=== PATIENT | female | born 1980 | race Caucasian/White ===

== ENCOUNTER 2017-01-23 16:47 | Inpatient (IN) | payer OTHER ==
[~2017-01-23] VITALS: Ht 162.6 cm; Wt 70.0 kg
[2017-01-23] VITALS (9 sets, daily range): BP systolic 101–127; BP diastolic 57–67; PULSE 88–119; TEMP 37.1–37.3; O2SAT 97–100; Ht 162.6 cm; Wt 70.0 kg
[2017-01-23] MEDS ORDERED: LORAZEPAM 2 MG/ML 1 ML VIAL IV STA ×2 (17:14→17:28)
[2017-01-23] MEDS ORDERED: SODIUM CHLORIDE 0.9% 1000ML 2,000 ML IV STA (17:14)
[2017-01-23] MEDS ORDERED: ACYCLOVIR SOD IV STA (17:41)
[2017-01-23] MEDS ORDERED: DEXTROSE 5% IV STA (17:41)
[2017-01-23] MEDS ORDERED: CEFTRIAXONE SOD INJ 2,000 MG in DEXTROSE 5% 50ML 50 ML IV STA (17:41)
[2017-01-23] MEDS ORDERED: DEXAMETHASONE SOD INJ 10 MG/ML VIAL IV ONE (17:45)
[2017-01-23] MEDS ORDERED: CEFTRIAXONE SOD INJ 1 GM ADDVIAL ONE (17:50)
[2017-01-23 17:59] LABS: MEAN CELL VOLUME 85.9 fL (80-100); MEAN CORPUSCULAR HEMOGLOBIN 29.9 pg (25-34); MEAN CORPUSCULAR HGB CONC 34.8 g/dl (32-36); MEAN PLATELET VOLUME 10.4 fL (7.4-10.4); PLATELET COUNT 292 K/uL (130-400); RED BLOOD COUNT 3.84 M/uL (4.2-5.4); WHITE BLOOD COUNT 35.02 K/uL (4.8-10.8)
--- NOTE | 2017-01-23 18:13 | DIAGNOSTIC IMAGING REPORT ---
HEAD CT NONCONTRAST CT DOSE: HISTORY: Mental status change OVERDOSE TECHNIQUE: Multiaxial CT images of the head were performed without the use of intravenous contrast. Comparison: None. Findings: Moderate mucosal thickening of the bulk of the right maxillary ethmoid and sphenoid sinuses The calvarium and skull base are intact. The ventricles and sulci are within normal limits. There is no mass, hematoma, midline shift, or acute infarct. Impression: No acute intracranial abnormality. Sinusitis Electronically signed by: Henry Emanuel M.D. 01/23/2017 6:11 PM Dictated Date/Time: 01/23/2017 6:09 PM
--- NOTE | 2017-01-23 18:14 | DIAGNOSTIC IMAGING REPORT ---
ABDOMEN AND PELVIS CT WITHOUT CONTRAST CT DOSE: 968.08 mGy.cm HISTORY: Fever. Mental status change. fever, altered mental status TECHNIQUE: Multiaxial CT images of the abdomen and pelvis were performed without contrast. COMPARISON STUDY: None. FINDINGS: The lung bases are clear. The unenhanced liver, spleen, gallbladder, pancreas, kidneys, and adrenal glands are within normal limits. No bowel wall thickening or obstruction. The pelvic organs are unremarkable. No suspicious lytic or blastic osseous lesions. IMPRESSION: No significant abnormality identified within the abdomen or pelvis. Electronically signed by: Henry Emanuel M.D. 01/23/2017 6:13 PM Dictated Date/Time: 01/23/2017 6:12 PM
[2017-01-23 18:17] LABS: URINE APPEARANCE CLOUDY (CLEAR); URINE COLOR DK YELLOW; URINE EPITHELIAL CELL AUTO >30 /lpf (0-5); URINE NITRITE NEG (NEG); URINE PH 5.5 (4.5-7.5); URINE SPECIFIC GRAVITY 1.032 (1.000-1.030); UROBILINOGEN NEG (NEG)
[2017-01-23 18:20] LABS: BASO % 0.1 %; BASO ABS # 0.02 K/uL (0-0.2); COMPLETE YES; IG% 0.5 %; LYMPH % 5.1 %; MONO % 6.7 %; NEUT % 87.6 %
[2017-01-23] MEDS: ACYCLOVIR SOD INJ 600 MG in DEXTROSE 5% 100ML 100 ML IV STA ×2 (18:20→19:48)
[2017-01-23 18:22] LABS: MANUAL MICROSCOPIC REQUIRED? NO; REVIEW REQ? YES
[2017-01-23 18:24] LABS: URINE BILIRUBIN NEG (NEG)
[2017-01-23] MEDS: KETOROLAC TROMETHAMINE 30 MG/ML VIAL IV STA ×2 (18:30→19:50)
[2017-01-23] MEDS: SODIUM CHLORIDE 0.9% 1000ML 1,000 ML IV STA ×4 (18:45→19:53)
[2017-01-23] MEDS ORDERED: LIDOCAINE HCL 1% 20 ML VIAL ONE (18:53)
[2017-01-23] MEDS ORDERED: DOPamine 400MG / 250ML D5W ONE (19:09)
[2017-01-23] MEDS: VANCOMYCIN INJ 1,500 MG in SODIUM CHLORIDE 0.9% 500ML 500 ML IV STA ×2 (19:25→19:48)
[2017-01-23] MEDS ORDERED: AMPICILLIN IV 2,000 MG in SODIUM CHLOR 0.9% AD-VAN 100ML 100 ML IV STA (19:43)
[2017-01-23 19:59] LABS: INR 1.1 (0.9-1.1); PARTIAL THROMBOPLASTIN RATIO 1.2; PROTHROMBIN TIME (PATIENT) 12.1 SECONDS (9.0-12.0)
[2017-01-23] MEDS ORDERED: MoRPHine SULFATE 2 MG/ML CARP IV PRN (20:00)
[2017-01-23] MEDS ORDERED: ACETAMINOPHEN 325 MG TAB PO PRN (20:00)
[2017-01-23] MEDS ORDERED: ONDANSETRON INJ 2 MG/ML 2 ML VIAL IV PRN (20:00)
[2017-01-23] MEDS ORDERED: HYDROmorphone INJ 1 MG/ML SYR IV PRN (20:00)
[2017-01-23 20:04] LABS: CSF APPEARANCE HAZY; CSF COLOR RED; CSF MONONUC RELAT 13.2 %
[2017-01-23 20:05] LABS: CSF XANTHOCHROMIC NO XANTHOCHROMIA
[2017-01-23 20:07] LABS: CALCIUM 6.8 mg/dl (8.5-10.1); CREATININE 1.1 mg/dl (0.60-1.20); MAGNESIUM 2.3 mg/dl (1.8-2.4)
[2017-01-23] MEDS ORDERED: ACETAMINOPHEN 650 MG SUPP PR ONE (20:11)
[2017-01-23 20:13] LABS: CSF CHEMISTRY TUBE # 2
[2017-01-23 20:17] LABS: PREG INTERNAL NEGATIVE QC NEG CLEAR BACKGROUND; PREG INTERNAL POSITIVE QC POS CONTROL LINE
--- NOTE | 2017-01-23 20:23 | History and Physical ---
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 The pt had been having headaches and sinus congestion for a week. She may have received a course of antibiotics although this is unclear. She had not been seen or heard from for 2 days and had missed work for the past 2 days without notifying anyone. At that point her supplemental manager alerted family who requested that the landlord enter her appt and check on her. She was found obtunded. She was transported emergently to the hospital where a clinical exam was consistent with meningitis and encephalitis. Spinal fluid was aspirated to confirm the diagnosis and initial results are consistent with bacterial meningitis. The pt does not respond to questioning presently and is unable to contribute any information. She hails from [facility] however per her friend she has not travelled since [place]. 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 Smoking Status: Never Smoker Alcohol Use: socially Allergies Coded Allergies: Penicillin V (Verified Adverse Reaction, Intermediate, VOMITTING, 01/23/17) Home Medications Unable to Obtain Active Prescriptions or Reported Meds Review of Systems Cannot obtain Physical Exam Vital Signs Date Time Temp Pulse Resp B/P Pulse Ox O2 Delivery O2 Flow Rate FiO2 01/23/17 19:02 116 01/23/17 18:47 119 21 87 01/23/17 18:46 81/64 01/23/17 18:42 119 18 90 01/23/17 18:37 117 35 89 01/23/17 18:32 123 12 117/66 91 01/23/17 18:27 122 23 91 01/23/17 18:26 173/43 01/23/17 18:22 133 24 94 01/23/17 18:17 132 30 95 01/23/17 18:12 131 42 119/ 94 01/23/17 17:46 116/74 01/23/17 17:42 134 38 96 01/23/17 17:37 136 38 96 01/23/17 17:36 97 Room Air 01/23/17 17:36 97 Room Air 01/23/17 17:34 124/75 01/23/17 17:32 139 26 96 01/23/17 17:27 140 38 97 01/23/17 17:22 129 23 96 01/23/17 17:17 126 25 01/23/17 17:12 121 30 01/23/17 16:56 38.9 118 24 120/73 95 Room Air 01/23/17 16:54 120/73 General Appearance: + pertinent finding (Pts eyes are open - she grimaces with head movement and does not respond to questioning) Head: normocephalic, atraumatic Eyes: normal inspection, + pertinent finding (photohpobia is present) ENT: normal ENT inspection, pharynx normal, + pertinent finding (Crusting on lips - possible scab on R lower lip) Neck: + pertinent finding (Rigidity present) Respiratory/Chest: chest non-tender, lungs clear, normal breath sounds Cardiovascular: regular rate, rhythm, no edema, no gallop, no JVD, no murmur, normal peripheral pulses Abdomen/GI: normal bowel sounds, non tender, soft Back: normal inspection Extremities/Musculoskelatal: normal inspection, no calf tenderness, normal capillary refill, no pedal edema, normal range of motion Neurologic/Psych: + pertinent finding (Cannot comply with exam - awake but unresponsive - exhibits spontaneous movemrnt and turns eyes from light) Skin: + pertinent finding (Erythema over trunk) Diagnostics Laboratory Results Results Past 24 Hours Test 01/23/17 17:25 01/23/17 17:30 01/23/17 19:10 01/23/17 19:32 Range/Units White Blood Count 35.02 4.8-10.8 K/uL Red Blood Count 3.84 4.2-5.4 M/uL Hemoglobin 11.5 12.0-16.0 g/dL Hematocrit 33.0 37-47 % Mean Corpuscular Volume 85.9 80-100 fL Mean Corpuscular Hemoglobin 29.9 25-34 pg Mean Corpuscular Hemoglobin Concent 34.8 32-36 g/dl Platelet Count 292 130-400 K/uL Mean Platelet Volume 10.4 7.4-10.4 fL Neutrophils (%) (Auto) 87.6 % Lymphocytes (%) (Auto) 5.1 % Monocytes (%) (Auto) 6.7 % Eosinophils (%) (Auto) 0.0 % Basophils (%) (Auto) 0.1 % Neutrophils # (Auto) 30.66 1.4-6.5 K/uL Lymphocytes # (Auto) 1.80 1.2-3.4 K/uL Monocytes # (Auto) 2.35 0.11-0.59 K/uL Eosinophils # (Auto) 0.00 0-0.5 K/uL Basophils # (Auto) 0.02 0-0.2 K/uL RDW Standard Deviation 40.8 36.4-46.3 fL RDW Coefficient of Variation 12.9 11.5-14.5 % Immature Granulocyte % (Auto) 0.5 % Immature Granulocyte # (Auto) 0.19 0.00-0.02 K/uL Red Blood Cell Morphology Unremarkable Urine Color DK YELLOW Urine Appearance CLOUDY CLEAR Urine pH 5.5 4.5-7.5 Urine Specific [place] 1.032 1.000-1.030 Urine Protein 3+ NEG Urine Glucose (UA) TRACE NEG Urine Ketones 1+ NEG Urine Occult Blood TRACE NEG Urine Nitrite NEG NEG Urine Bilirubin NEG NEG Urine Urobilinogen NEG NEG Urine Leukocyte Esterase NEG NEG Urine WBC (Auto) 1-5 0-5 /hpf Urine RBC (Auto) 0-4 0-4 /hpf Urine Hyaline Casts (Auto) 1-5 0-5 /lpf Urine Epithelial Cells (Auto) >30 0-5 /lpf Urine Bacteria (Auto) NEG NEG Urine Renal Epithelial Cells 0-5 /lpf Urine Pathogenic Casts See comments 0 /lpf CSF Color RED CSF Appearance HAZY CSF WBC 4081 0-5 /uL CSF RBC 8000 0 /uL CSF Xanthrochromic NO XANTHOCHROMIA CSF Cell Count Tube # 4 CSF Mononuclear WBCs % 13.2 % CSF Polynuclear WBCs (%) 86.8 % CSF Chemistry Tube # 2 CSF Glucose 2 40-70 mg/dl Prothrombin Time 12.1 9.0-12.0 SECONDS Prothromb Time International Ratio 1.1 0.9-1.1 Activated Partial Thromboplast Time 31.6 21.0-31.0 SECONDS Partial Thromboplastin Ratio 1.2 Sodium Level 149 136-145 mmol/L Potassium Level 3.0 3.5-5.1 mmol/L Chloride Level 119 98-107 mmol/L Carbon Dioxide Level 18 21-32 mmol/L Anion Gap 12.0 3-11 mmol/L Blood Urea Nitrogen 33 7-18 mg/dl Creatinine 1.10 0.60-1.20 mg/dl Est Creatinine Clear Calc Drug Dose 67.7 ml/min Estimated GFR () 75.3 Estimated GFR (Non- 65.0 BUN/Creatinine Ratio 30.0 10-20 Random Glucose 132 70-99 mg/dl Osmolality 298 280-300 mOsm/kg Calcium Level 6.8 8.5-10.1 mg/dl Magnesium Level 2.3 1.8-2.4 mg/dl Total Bilirubin 0.4 0.2-1 mg/dl Direct Bilirubin 0.1 0-0.2 mg/dl Aspartate Amino Transf (AST/SGOT) 7 15-37 U/L Alanine Aminotransferase (ALT/SGPT) 8 12-78 U/L Alkaline Phosphatase 46 45-117 U/L Total Creatine Kinase 236 26-192 U/L Troponin I 0.030 0-0.045 ng/ml Total Protein 6.0 6.4-8.2 gm/dl Albumin 2.3 3.4-5.0 gm/dl Lipase 50 73-393 U/L Salicylates Level 4.0 2.8-20 mg/dl Acetaminophen Level 4 10-30 ug/ml Ethyl Alcohol mg/dL < 3.0 0-3 mg/dl Test 01/23/17 19:39 Range/Units Bedside Lactic Acid Venous 0.71 0.90-1.70 mmol/L Microbiology Results 01/23/17 Blood Culture, Received Pending 01/23/17 Blood Culture, Received Pending 01/23/17 Gram Stain - Final, Resulted 01/23/17 CSF Culture, Resulted Pending Impression Assessment and Plan 37 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 The pt had been having headaches and sinus congestion for a week. She may have received a course of antibiotics although this is unclear. She had not been seen or heard from for 2 days and had missed work for the past 2 days without notifying anyone. At that point her supplemental manager alerted family who requested that the landlord enter her appt and check on her. She was found obtunded. She was transported emergently to the hospital where a clinical exam was consistent with meningitis and encephalitis. Spinal fluid was aspirated to confirm the diagnosis and initial results are consistent with bacterial meningitis. The pt does not respond to questioning presently and is unable to contribute any information. She hails from [facility] however per her friend she has not travelled since [place]. Pending culture results, she will be treated empirically to cover both bacterial and herpetic meningitis. She is receiving Vancomycin, Ceftriaxone, Ampicillin and Acyclovir. She will be aggressively hydrated and transferred to the ICU. There is some question if close friends or work contacts may need prophylaxis which we will attempt to verify. Package Line Relief Operator present at time of admission. Family are informed regarding her condition and are expected in the hospital within the next few hours. Full code - SCDs for next 24 hours owing to tap Total time for this admission including discussion with pt's friend, review of labs, meds - discussion with ER attending and book publisher and critical care time 48 min Level of Care Critical Care Resuscitation Status FULL RESUSCITATION VTE Prophylaxis VTE Risk Assessment Done? Y/N: Yes Risk Level: Low Given or contraindicated: SCD's
[2017-01-23 20:25] LABS: CSF TOTAL PROTEIN 741.8 mg/dl (15.0-45.0)
--- NOTE | 2017-01-23 20:28 | Critical Care Consultation ---
Critical Care Consultation Date of Consultation: January 23, 2017. Attending Physician: Dr. Cortez Marcos Reason for Consultation: Altered mental status secondary to suspected bacterial meningitis History of Present Illness Supervising physician: Dr. Elier Ovalle Tracy Salcido, AKBishnu Hensley, is a 37-year-old female who presents to the ICU status post being found altered at her apartment this afternoon. We have very limited information about patient's past medical history. It is our understanding that she has been suffering from a sinus infection; however, it appears that this was not being treated by a medical professional. Family states she went to the doctor during this period; but believes it was for a refill on current medications. It is unclear if antibiotics were prescribed. Patient was last known well Friday prior to 11 AM when her same-sex partner left for an out-of-town trip. At this time the partner states that the patient was sleeping a lot, which she does on occasion, and was feeling under the weather from the sinus infection. 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 When the patient failed to show up to a data collection appointment with coworkers today; her coworkers contacted patient's girlfriend; who in turn contacted the patient's landlord to check on her. I was told that she was found with multiple pill bottles and pills laying around her. Suspicion of OB was considered and with a high fever she was treated as a possible serotonin syndrome; by receiving multiple doses of IV Ativan. Upon further evaluation in the emergency department, meningitis versus encephalitis was in the differential. Patient was noted to have neck stiffness, blotchy appearance to the skin, and fever. Therefore a lumbar puncture was performed and results were consistent with bacterial meningitis; elevated white blood cell count and low glucose. An i-STAT in the ED demonstrated mild anemia and dehydration. While in the emergency department the patient received 4 L of normal saline, Decadron 10 mg, Rocephin 2 g, vancomycin 1500 mg, acyclovir 600 mg. Patient was placed on dopamine for mild hypotension. Dr. Ovalle and myself have had extensive conversation with both the patient's partner and the patient's mother and neither have been able to give much additional information into the patient's past medical history. The mother does state that when she had last spoken to her daughter on Bharat evening on the phone, her daughter stated she was deaf in one ear from the sinus infection. Mother states that ear problems have never been an issue for her daughter. Otherwise the only past medical history that we have been able to ascertain is that the patient has a adverse reaction with the GI upset to penicillin. Patient was obtunded in the emergency department when examined; however, upon seeing her again in the ICU she did follow some simple commands. She was able to tell me her name as well as wiggle her toes. However she could not squeeze my hands or stick out her tongue. Due to current condition described above review of systems could not be obtained. Past Medical/Surgical History Medical Problems: Altered mental status Sinus infection Depression Childhood history of speech impediment Surgical Problems: Tonsillectomy Family History Unable to obtain from patient; per Sister * Denies family history of seizure, CAD, HTN, DM, Thyroid Disorders * Father: M.S. 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[email or web address]) Allergies Coded Allergies: Penicillin V (Verified Adverse Reaction, Intermediate, VOMITTING, 01/23/17) Home Medications Unable to Obtain Active Prescriptions or Reported Meds Current Inpatient Medications Current Inpatient Medications Medications (Trade) Dose Ordered Sig/Barney Route Start Time Stop Time Status Last Admin Dose Admin Sodium Chloride 1,000 ml @ 200 mls/hr Q5H STAT IV 01/23/17 17:14 01/23/17 22:13 01/23/17 19:20 200 MLS/HR Sodium Chloride (Nss 1000ml) 1,000 ml @ 999 mls/hr Q1H1M STAT IV 01/23/17 19:41 01/23/17 20:41 01/23/17 18:45 999 MLS/HR Acetaminophen (Tylenol Tab) 650 mg Q4H PRN PO 01/23/17 20:00 02/22/17 19:59 Ondansetron HCl 4 mg 4 mg Q6H PRN IV 01/23/17 20:00 02/22/17 19:59 Pantoprazole Sodium/Syringe (Protonix Inj/ Syringe) 10 ml @ 5 mls/min DAILY IV 01/24/17 09:00 02/23/17 08:59 UNV Morphine Sulfate (MoRPHine SULFATE INJ) 2 mg Q2H PRN IV 01/23/17 20:00 02/06/17 19:59 Hydromorphone HCl (Dilaudid Inj) 0.5 mg Q4H PRN IV 01/23/17 20:00 02/06/17 19:59 Morphine Sulfate 4 mg 4 mg Q2H PRN IV 01/23/17 20:00 02/06/17 19:59 Ceftriaxone Sodium 2000 mg/ Dextrose 70 ml @ 100 mls/hr Q24H IV 01/23/17 20:00 02/02/17 19:59 UNV Vancomycin HCl 1000 mg/Sodium Chloride 270 ml @ 125 mls/hr Q12 IV 01/23/17 21:00 02/02/17 20:59 UNV Ampicillin Sodium 2000 mg/Sodium Chloride 58 ml @ 100 mls/hr Q6H IV 01/23/17 20:00 02/02/17 19:59 UNV Dexamethasone Sodium Phosphate/ Syringe (Decadron Inj/ Syringe) 3 ml @ 1 mls/min Q6H IV 01/23/17 20:00 02/22/17 19:59 UNV Review of Systems Unable to attain secondary to patient condition as described in history of present illness above Physical Exam Date Time Temp Pulse Resp B/P Pulse Ox O2 Delivery O2 Flow Rate FiO2 01/23/17 20:01 107/48 01/23/17 20:00 126 26 100 01/23/17 19:59 112/48 01/23/17 19:46 95/42 01/23/17 19:45 125 32 100 01/23/17 19:31 96/50 01/23/17 19:30 123 31 100 01/23/17 19:26 104/41 01/23/17 19:16 79/46 01/23/17 19:15 115 17 93 01/23/17 19:08 80/48 01/23/17 19:06 74/48 01/23/17 19:02 116 01/23/17 19:01 81/53 01/23/17 19:00 120 25 92 01/23/17 18:47 119 21 87 01/23/17 18:46 81/64 01/23/17 18:46 81/64 01/23/17 18:45 118 27 91 01/23/17 18:42 119 18 90 01/23/17 18:37 117 35 89 01/23/17 18:32 123 12 117/66 91 01/23/17 18:32 117/66 01/23/17 18:30 123 34 94 01/23/17 18:27 122 23 91 01/23/17 18:26 173/43 01/23/17 18:26 173/43 01/23/17 18:22 133 24 94 01/23/17 18:17 132 30 95 01/23/17 18:15 129 36 94 01/23/17 18:12 131 42 119/ 94 01/23/17 18:12 119/ 01/23/17 17:46 116/74 01/23/17 17:46 116/74 01/23/17 17:45 129 42 94 01/23/17 17:42 134 38 96 01/23/17 17:37 136 38 96 01/23/17 17:36 97 Room Air 01/23/17 17:36 97 Room Air 01/23/17 17:34 124/75 01/23/17 17:32 139 26 96 01/23/17 17:27 140 38 97 01/23/17 17:22 129 23 96 01/23/17 17:17 126 25 01/23/17 17:12 121 30 01/23/17 16:56 38.9 118 24 120/73 95 Room Air 01/23/17 16:54 120/73 Vital Signs - as noted Laboratory Data - as noted Physical Exam: General - NAD, Obtunded Eyes - PERRL thought sluggish, EOM could not be assessed, No icterus, gaze conjugate ENT - Mucosa dry, no lesions or candidiasis, hematoma to right lower lip Neck - Supple, trachea midline, no masses or lymphadenopathy, no JVD or bruits Lungs - No paradoxical chest wall movement, clear to auscultation bilaterally, some coarseness to right lower lobe, no wheezes, rales, or rhonchi Heart -normal rhythm with sinus tachycardia, No murmur, rubs, clicks, or gallops appreciated Abdomen - BS present, no bruits noted, tympanic to percussion, soft, nontender, nondistended, no organomegaly Extremities - No edema, pedal pulses intact Neuro - [place] Coma Scale: 10 Strength moves all extremities Reflexes: normal and equal CN:PERRL, no facial asymmetry, uvula/tongue midline Laboratory Results Last 24 Hours Test 01/23/17 17:25 01/23/17 17:30 01/23/17 19:10 01/23/17 19:32 White Blood Count 35.02 K/uL Red Blood Count 3.84 M/uL Hemoglobin 11.5 g/dL Hematocrit 33.0 % Mean Corpuscular Volume 85.9 fL Mean Corpuscular Hemoglobin 29.9 pg Mean Corpuscular Hemoglobin Concent 34.8 g/dl Platelet Count 292 K/uL Mean Platelet Volume 10.4 fL Neutrophils (%) (Auto) 87.6 % Lymphocytes (%) (Auto) 5.1 % Monocytes (%) (Auto) 6.7 % Eosinophils (%) (Auto) 0.0 % Basophils (%) (Auto) 0.1 % Neutrophils # (Auto) 30.66 K/uL Lymphocytes # (Auto) 1.80 K/uL Monocytes # (Auto) 2.35 K/uL Eosinophils # (Auto) 0.00 K/uL Basophils # (Auto) 0.02 K/uL RDW Standard Deviation 40.8 fL RDW Coefficient of Variation 12.9 % Immature Granulocyte % (Auto) 0.5 % Immature Granulocyte # (Auto) 0.19 K/uL Red Blood Cell Morphology Unremarkable Urine Color DK YELLOW Urine Appearance CLOUDY Urine pH 5.5 Urine Specific [place] 1.032 Urine Protein 3+ Urine Glucose (UA) TRACE Urine Ketones 1+ Urine Occult Blood TRACE Urine Nitrite NEG Urine Bilirubin NEG Urine Urobilinogen NEG Urine Leukocyte Esterase NEG Urine WBC (Auto) 1-5 /hpf Urine RBC (Auto) 0-4 /hpf Urine Hyaline Casts (Auto) 1-5 /lpf Urine Epithelial Cells (Auto) >30 /lpf Urine Bacteria (Auto) NEG Urine Renal Epithelial Cells /lpf Urine Pathogenic Casts See comments /lpf CSF Color RED CSF Appearance HAZY CSF WBC 4081 /uL CSF RBC 8000 /uL CSF Xanthrochromic NO XANTHOCHROMIA CSF Cell Count Tube # 4 CSF Mononuclear WBCs % 13.2 % CSF Polynuclear WBCs (%) 86.8 % CSF Chemistry Tube # 2 CSF Glucose 2 mg/dl CSF Total Protein 741.8 mg/dl Prothrombin Time 12.1 SECONDS Prothromb Time International Ratio 1.1 Activated Partial Thromboplast Time 31.6 SECONDS Partial Thromboplastin Ratio 1.2 Sodium Level 149 mmol/L Potassium Level 3.0 mmol/L Chloride Level 119 mmol/L Carbon Dioxide Level 18 mmol/L Anion Gap 12.0 mmol/L Blood Urea Nitrogen 33 mg/dl Creatinine 1.10 mg/dl Est Creatinine Clear Calc Drug Dose 67.7 ml/min Estimated GFR () 75.3 Estimated GFR (Non- 65.0 BUN/Creatinine Ratio 30.0 Random Glucose 132 mg/dl Osmolality 298 mOsm/kg Calcium Level 6.8 mg/dl Magnesium Level 2.3 mg/dl Total Bilirubin 0.4 mg/dl Direct Bilirubin 0.1 mg/dl Aspartate Amino Transf (AST/SGOT) 7 U/L Alanine Aminotransferase (ALT/SGPT) 8 U/L Alkaline Phosphatase 46 U/L Total Creatine Kinase 236 U/L Troponin I 0.030 ng/ml Total Protein 6.0 gm/dl Albumin 2.3 gm/dl Lipase 50 U/L Human Chorionic Gonadotropin, Qual NEG Salicylates Level 4.0 mg/dl Acetaminophen Level 4 ug/ml Ethyl Alcohol mg/dL < 3.0 mg/dl Test 01/23/17 19:39 Bedside Lactic Acid Venous 0.71 mmol/L Diagnostic Results HEAD CT NONCONTRAST CT DOSE: HISTORY: Mental status change OVERDOSE TECHNIQUE: Multiaxial CT images of the head were performed without the use of intravenous contrast. Comparison: None. Findings: Moderate mucosal thickening of the bulk of the right maxillary ethmoid and sphenoid sinuses The calvarium and skull base are intact. The ventricles and sulci are within normal limits. There is no mass, hematoma, midline shift, or acute infarct. Impression: No acute intracranial abnormality. Sinusitis Electronically signed by: Henry Emanuel M.D. 01/23/2017 6:11 PM Dictated Date/Time: 01/23/2017 6:09 PM _ CHEST ONE VIEW PORTABLE CLINICAL HISTORY: Overdose dyspnea COMPARISON STUDY: No previous studies for comparison. FINDINGS: Interstitial prominence of the mid to lower lung regions bilaterally. No consolidative infiltrates. No evidence for cardiac enlargement. IMPRESSION: Nonspecific interstitial prominence in both lung bases. Possibly of a nonspecific pneumonitis is considered Electronically signed by: Henry Emanuel M.D. 01/23/2017 8:35 PM Dictated Date/Time: 01/23/2017 8:34 PM __ ABDOMEN AND PELVIS CT WITHOUT CONTRAST CT DOSE: 968.08 mGy.cm HISTORY: Fever. Mental status change. fever, altered mental status TECHNIQUE: Multiaxial CT images of the abdomen and pelvis were performed without contrast. COMPARISON STUDY: None. FINDINGS: The lung bases are clear. The unenhanced liver, spleen, gallbladder, pancreas, kidneys, and adrenal glands are within normal limits. No bowel wall thickening or obstruction. The pelvic organs are unremarkable. No suspicious lytic or blastic osseous lesions. IMPRESSION: No significant abnormality identified within the abdomen or pelvis. Electronically signed by: Henry Emanuel M.D. 01/23/2017 6:13 PM Dictated Date/Time: 01/23/2017 6:12 PM Assessment & Plan Reason Critically Ill: Patient is an 37-year-old obtunded female who is transferred to the ICU for suspected bacterial meningitis causing altered mental status. PLAN: Neuro: * Pt is obtunded but is showing some improvement as noted in HPI * Drug screen Negative * Pain with movement of head; neck stiffness * Lyme Neg * Lumbar puncture performed in emergency department * CSF WBCs 4081, glucose 2, total protein 741.8 * Traumatic tap noted by provider and results * CSF Gram Stain Neg, Culture Pending * Currently being treated for suspicion of bacterial meningitis secondary to acute sinusitis * Continue current broad spectrum antibiotics as well as acyclovir (first day of treatment 01/23/2017) * Ampicillin (adverse reaction to penicillin notated as GI upset) 2 g every 6 hours IV * Ceftriaxone 2 g every 12 hours IV * Vancomycin 1250 mg every 10 hours IV * Acyclovir 500 mg every 8 hours IV * Continue dexamethasone 12 mg every 6 hours IV; currently timed to be given with ampicillin * HIV test pending: If positive will add fungal coverage ID: * White blood cell count elevated: 35.02 * Fever noted in ED; rcv'd Tylenol Supp * Fever resolved since ICU admission * Continue broad-spectrum antibiotics as noted above in neuro * Lactic acid obtained in emergency department less than 1; however this was after 3 L of fluid. * Repeat lactic acid with morning labs * Blood and CSF Cultures Pending * Monitor CBC, Trend Fever Curve Resp: * Supplemental oxygen as required * Patient currently clear to auscultation; 3 L nasal cannula with adequate saturations * Monitor on telemetry * At increased risk for aspiration secondary to altered mental status; keep head of bed at 30 * Consented to Endotracheal Intubation if needed CV: * Tachycardic on admission to ICU; now resolved * Hypotension: Discontinue dopamine; monitor SBP * Goal greater than 90 * Have obtained consent for arterial and central line via phone from patient's mother with Dr. Ovalle * Will hold on invasive procedures currently as patient has stabilized * Monitor on telemetry Fluids/Renal/electrolytes: * Adequate urinary output; Sosa in place to gravity * Patient has received a minimum of 4 L normal saline * Monitor daily BMP * Hypokalemia noted in the emergency department: * Continue to replete electrolytes per protocol * Continue IV fluids D5NSS + 20KCl @150mL/hr * Will need to monitor glucose closely due to D5 above and steroid use GI/Nutrition: * Monitor for BM * NPO while altered * No elevation in Liver Enzymes; Repeat lab in AM * Stress Ulcer Prophylaxis in place Heme: * Monitor H&H Daily; expect dilutional anemia secondary to IV fluid intake * Plts WNL * Pt consented for blood products if needed * DVT Prophylaxis: * No chemical prophylaxis today, secondary to LP * SCDs in place Endocrine: * Accu-Checks per protocol, started insulin infusion for 2 blood sugars greater than 180 * No known DM dx: check A1C in AM Access: [address], Consent obtained for Central and Arterial Line if condition requires CCT: 60 Minutes; This time is exclusive of all separately billable procedures. Thank you for involving us in the care of this patient. Please refer to Dr. Elier Ovalle's addendum for further recommendations. I have personally evaluated and examined this patient. I agree with assessment and plan of Keila Monteiro PA-C. Had significant discussion with patient's mother, and life partner. Patient critically ill due to likely bacterial meningitis secondary to sinusitis, no evidence of bony erosion seen on the CT scan. Started broad-spectrum antibiotics will de-escalate based on CSF fluid results.
--- NOTE | 2017-01-23 20:36 | DIAGNOSTIC IMAGING REPORT ---
CHEST ONE VIEW PORTABLE CLINICAL HISTORY: Overdose dyspnea COMPARISON STUDY: No previous studies for comparison. FINDINGS: Interstitial prominence of the mid to lower lung regions bilaterally. No consolidative infiltrates. No evidence for cardiac enlargement. IMPRESSION: Nonspecific interstitial prominence in both lung bases. Possibly of a nonspecific pneumonitis is considered Electronically signed by: Henry Emanuel M.D. 01/23/2017 8:35 PM Dictated Date/Time: 01/23/2017 8:34 PM
[2017-01-23 20:37] LABS: LYME DISEASE AB IGG NEG (NEG); LYME DISEASE AB IGM NEG (NEG)
[2017-01-23] MEDS ORDERED: VANCOMYCIN CONSULT ACTIVE PRN (21:45)
--- NOTE | 2017-01-23 21:47 | Pharmacy Progress Note ---
Pharmacy Abx Initial Consult Date of Service January 23, 2017. Pharmacy Dosing Scope Date of Consult: 01/23/17 Consultation requested by: Dr. Marcos Pharmacy is consulted to initiate vanco IV/PO dosing therapy, order appropriate labs and adjust drug dose/frequency. Subjective The patient is a 37 year old female admitted on January 23, 2017 at 19:51. Objective Height (Feet): 5 Height (Inches): 3.00 Weight (Kilograms): 71.600 Vital Signs (Past 12Hrs) Vital Signs Past 12 Hours Date Time Temp Pulse Resp B/P Pulse Ox O2 Delivery O2 Flow Rate FiO2 01/23/17 20:36 113 27 95 01/23/17 20:31 113/69 01/23/17 20:22 106/63 01/23/17 20:21 119 27 94 01/23/17 20:20 38.1 01/23/17 20:16 113/54 01/23/17 20:06 115 28 100 01/23/17 20:01 107/48 01/23/17 20:00 126 26 100 01/23/17 19:59 112/48 01/23/17 19:46 95/42 01/23/17 19:45 125 32 100 01/23/17 19:31 96/50 01/23/17 19:30 123 31 100 01/23/17 19:26 104/41 01/23/17 19:16 79/46 01/23/17 19:15 115 17 93 01/23/17 19:08 80/48 01/23/17 19:06 74/48 01/23/17 19:02 116 01/23/17 19:01 81/53 01/23/17 19:00 120 25 92 01/23/17 18:47 119 21 87 01/23/17 18:46 81/64 01/23/17 18:46 81/64 01/23/17 18:45 118 27 91 01/23/17 18:42 119 18 90 01/23/17 18:37 117 35 89 01/23/17 18:32 123 12 117/66 91 01/23/17 18:32 117/66 01/23/17 18:30 123 34 94 01/23/17 18:27 122 23 91 01/23/17 18:26 173/43 5/25/17 18:26 173/43 01/23/17 18:22 133 24 94 01/23/17 18:17 132 30 95 01/23/17 18:15 129 36 94 01/23/17 18:12 131 42 119/ 94 01/23/17 18:12 119/ 01/23/17 17:46 116/74 01/23/17 17:46 116/74 01/23/17 17:45 129 42 94 01/23/17 17:42 134 38 96 01/23/17 17:37 136 38 96 01/23/17 17:36 97 Room Air 01/23/17 17:36 97 Room Air 01/23/17 17:34 124/75 01/23/17 17:32 139 26 96 01/23/17 17:27 140 38 97 01/23/17 17:22 129 23 96 01/23/17 17:17 126 25 01/23/17 17:12 121 30 01/23/17 16:56 38.9 118 24 120/73 95 Room Air 01/23/17 16:54 120/73 Lab Results (24Hrs) Test 01/23/17 17:25 01/23/17 17:30 01/23/17 19:10 01/23/17 19:32 White Blood Count 35.02 K/uL (4.8-10.8) Red Blood Count 3.84 M/uL (4.2-5.4) Hemoglobin 11.5 g/dL (12.0-16.0) Hematocrit 33.0 % (37-47) Mean Corpuscular Volume 85.9 fL (80-100) Mean Corpuscular Hemoglobin 29.9 pg (25-34) Mean Corpuscular Hemoglobin Concent 34.8 g/dl (32-36) Platelet Count 292 K/uL (130-400) Mean Platelet Volume 10.4 fL (7.4-10.4) Neutrophils (%) (Auto) 87.6 % Lymphocytes (%) (Auto) 5.1 % Monocytes (%) (Auto) 6.7 % Eosinophils (%) (Auto) 0.0 % Basophils (%) (Auto) 0.1 % Neutrophils # (Auto) 30.66 K/uL (1.4-6.5) Lymphocytes # (Auto) 1.80 K/uL (1.2-3.4) Monocytes # (Auto) 2.35 K/uL (0.11-0.59) Eosinophils # (Auto) 0.00 K/uL (0-0.5) Basophils # (Auto) 0.02 K/uL (0-0.2) RDW Standard Deviation 40.8 fL (36.4-46.3) RDW Coefficient of Variation 12.9 % (11.5-14.5) Immature Granulocyte % (Auto) 0.5 % Immature Granulocyte # (Auto) 0.19 K/uL (0.00-0.02) Red Blood Cell Morphology Unremarkable Urine Color DK YELLOW Urine Appearance CLOUDY (CLEAR) Urine pH 5.5 (4.5-7.5) Urine Specific [place] 1.032 (1.000-1.030) Urine Protein 3+ (NEG) Urine Glucose (UA) TRACE (NEG) Urine Ketones 1+ (NEG) Urine Occult Blood TRACE (NEG) Urine Nitrite NEG (NEG) Urine Bilirubin NEG (NEG) Urine Urobilinogen NEG (NEG) Urine Leukocyte Esterase NEG (NEG) Urine WBC (Auto) 1-5 /hpf (0-5) Urine RBC (Auto) 0-4 /hpf (0-4) Urine Hyaline Casts (Auto) 1-5 /lpf (0-5) Urine Epithelial Cells (Auto) >30 /lpf (0-5) Urine Bacteria (Auto) NEG (NEG) Urine Renal Epithelial Cells /lpf (0-5) Urine Pathogenic Casts See comments /lpf (0) CSF Color RED CSF Appearance HAZY CSF WBC 4081 /uL (0-5) CSF RBC 8000 /uL (0) CSF Xanthrochromic NO XANTHOCHROMIA CSF Cell Count Tube # 4 CSF Mononuclear WBCs % 13.2 % CSF Polynuclear WBCs (%) 86.8 % CSF Chemistry Tube # 2 CSF Glucose 2 mg/dl (40-70) CSF Total Protein 741.8 mg/dl (15.0-45.0) Prothrombin Time 12.1 SECONDS (9.0-12.0) Prothromb Time International Ratio 1.1 (0.9-1.1) Activated Partial Thromboplast Time 31.6 SECONDS (21.0-31.0) Partial Thromboplastin Ratio 1.2 Sodium Level 149 mmol/L (136-145) Potassium Level 3.0 mmol/L (3.5-5.1) Chloride Level 119 mmol/L (98-107) Carbon Dioxide Level 18 mmol/L (21-32) Anion Gap 12.0 mmol/L (3-11) Blood Urea Nitrogen 33 mg/dl (7-18) Creatinine 1.10 mg/dl (0.60-1.20) Est Creatinine Clear Calc Drug Dose 67.7 ml/min Estimated GFR () 75.3 Estimated GFR (Non- 65.0 BUN/Creatinine Ratio 30.0 (10-20) Random Glucose 132 mg/dl (70-99) Osmolality 298 mOsm/kg (280-300) Calcium Level 6.8 mg/dl (8.5-10.1) Magnesium Level 2.3 mg/dl (1.8-2.4) Total Bilirubin 0.4 mg/dl (0.2-1) Direct Bilirubin 0.1 mg/dl (0-0.2) Aspartate Amino Transf (AST/SGOT) 7 U/L (15-37) Alanine Aminotransferase (ALT/SGPT) 8 U/L (12-78) Alkaline Phosphatase 46 U/L (45-117) Total Creatine Kinase 236 U/L (26-192) Troponin I 0.030 ng/ml (0-0.045) Total Protein 6.0 gm/dl (6.4-8.2) Albumin 2.3 gm/dl (3.4-5.0) Lipase 50 U/L (73-393) Human Chorionic Gonadotropin, Qual NEG (NEG) Salicylates Level 4.0 mg/dl (2.8-20) Acetaminophen Level 4 ug/ml (10-30) Ethyl Alcohol mg/dL < 3.0 mg/dl (0-3) Lyme Disease IgG Antibody NEG (NEG) Lyme Disease IgM Antibody NEG (NEG) Test 01/23/17 19:39 Bedside Lactic Acid Venous 0.71 mmol/L (0.90-1.70) Serology Item Value Date Time Lyme Disease IgM Antibody NEG 01/23/171931 Lyme Disease IgG Antibody NEG 01/23/171931 Micro Results Date/Time Source Procedure Growth Status 01/23/17 18:15 Blood Blood Culture Pending Received 01/23/17 17:25 Blood Blood Culture Pending Received 01/23/17 19:10 Cerebral Spinal Fluid Gram Stain - Final Resulted 01/23/17 19:10 Cerebral Spinal Fluid CSF Culture Pending Resulted 01/23/17 21:30 Nasal MRSA DNA Surveillance Screen Pending Received Other Body Sources Item Value Date Time CSF Total Protein 741.8 mg/dl H 01/23/171909 CSF Glucose 2 mg/dl L 01/23/171909 CSF Chemistry Tube # 2 01/23/171909 CSF Polynuclear WBCs (%) 86.8 % 01/23/171909 CSF Mononuclear WBCs % 13.2 % 01/23/171909 CSF Cell Count Tube # 4 01/23/171909 CSF RBC 8000 /uL 01/23/171909 CSF WBC 4081 /uL *H 01/23/171909 CSF Xanthrochromic NO XANTHOCHROMIA 01/23/171909 CSF Color RED 01/23/171909 CSF Appearance HAZY 01/23/171909 Assessment & Plan Assessment 37 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 Plan Broad-spectrum anti-infectives for treatment of meningitis Vancomycin IV * Loading dose: 1500 mg (21 mg/kg) given in ED * Maintenance dose: 1250 mg IV (17 mg/kg) every 10 hours * Goal trough level for meningitis : 15 to 20 mcg/mL * Trough level ordered for 01/25/17 prior to the 04:00 dose OTHER anti-infectives (not pharmacy consults): * Rocephin * Ampicillin * Acyclovir Pharmacy will continue to follow and will adjust dose/frequency as necessary. Thank you.
[2017-01-23] MEDS: D5NSS + 20MEQ KCL 1,000 ML IV SCH (22:02)
[2017-01-23] MEDS: POTASSIUM CHLR 10 MEQ / WTR 10 MEQ in PREMIXED WATER 100 ML IV SCH ×4 (22:02→23:30)
--- NOTE | 2017-01-23 22:52 | EMERGENCY ROOM VISIT NOTE ---
History Report prepared by Elena: Mi Parsons Under the Supervision of: Dr. Perez Cisneros M.D. First contact with patient: 17:07 Chief Complaint: OVERDOSE (ACCIDENTAL) Stated Complaint: AMS, FEVER, RASH History of Present Illness The patient is a 37 year old female who presents to the Emergency Room with persistent AMS starting DRAG OUT MAN. The history is given by nursing staff. Someone went to check on her after nobody had seen her for 3 days. They found her in an altered mental status and called EMS. There were pills scattered on the ground around her and did raise concern for possible overdose. They report a blotchy red rash on her upper body and neck stiffness. Her blood glucose was normal. The history is limited due to AMS. Source of History: nursing staff History Limited By: AMS Onset: DRAG OUT MAN Position: other (global) Quality: other (AMS) Timing: other (persistent) Review of Systems Unobtainable due to AMS. Past Medical & Surgical Medical Problems: (1) Altered mental status Current/Historical Medications Unable to Obtain Active Prescriptions or Reported Meds Allergies Coded Allergies: Penicillin V (Verified Adverse Reaction, Intermediate, VOMITTING, 01/23/17) Physical Exam Vital Signs Date Time Temp Pulse Resp B/P Pulse Ox O2 Delivery O2 Flow Rate FiO2 01/23/17 19:46 95/42 01/23/17 19:45 125 32 100 01/23/17 19:31 96/50 01/23/17 19:30 123 31 100 01/23/17 19:26 104/41 01/23/17 19:16 79/46 01/23/17 19:15 115 17 93 01/23/17 19:08 80/48 01/23/17 19:06 74/48 01/23/17 19:02 116 01/23/17 19:01 81/53 01/23/17 19:00 120 25 92 01/23/17 18:47 119 21 87 01/23/17 18:46 81/64 01/23/17 18:46 81/64 01/23/17 18:45 118 27 91 01/23/17 18:42 119 18 90 01/23/17 18:37 117 35 89 01/23/17 18:32 123 12 117/66 91 01/23/17 18:32 117/66 01/23/17 18:30 123 34 94 01/23/17 18:27 122 23 91 01/23/17 18:26 173/43 01/23/17 18:26 173/43 01/23/17 18:22 133 24 94 01/23/17 18:17 132 30 95 01/23/17 18:15 129 36 94 01/23/17 18:12 131 42 119/ 94 01/23/17 18:12 119/ 01/23/17 17:46 116/74 01/23/17 17:46 116/74 01/23/17 17:45 129 42 94 01/23/17 17:42 134 38 96 01/23/17 17:37 136 38 96 01/23/17 17:36 97 Room Air 01/23/17 17:36 97 Room Air 01/23/17 17:34 124/75 01/23/17 17:32 139 26 96 01/23/17 17:27 140 38 97 01/23/17 17:22 129 23 96 01/23/17 17:17 126 25 01/23/17 17:12 121 30 01/23/17 16:56 38.9 118 24 120/73 95 Room Air 01/23/17 16:54 120/73 Physical Exam GENERAL: Awake, altered, responding to some verbal and painful stimuli. HENT: Normocephalic, atraumatic. Oropharynx unremarkable. Dry mucous membranes. EYES: Normal conjunctiva. Sclera non-icteric. Pupils dilated to 7 mm. NECK: Supple. No nuchal rigidity. FROM. No JVD. RESPIRATORY: Clear to auscultation. CARDIAC: Tachycardic rate, normal rhythm. Extremities warm and well perfused. Pulses equal. ABDOMEN: Soft, non-distended. No tenderness to palpation. No rebound or guarding. No masses. RECTAL: Deferred. MUSCULOSKELETAL: Chest examination reveals no tenderness. The back is symmetrical on inspection without obvious abnormality. There is no CVA tenderness to palpation. No joint edema. LOWER EXTREMITIES: Calves are equal size bilaterally and non-tender. No edema. Scattered bruises on the lower extremities. NEURO: Altered sensorium. Not following commands well. SKIN: No rash or jaundice noted. Medical Decision & Procedures ER Provider Diagnostic Interpretation: X-ray: Per my interpretation, radiologist review. Radiology results as stated below per my review and radiologist interpretation: CHEST ONE VIEW PORTABLE CLINICAL HISTORY: Overdose dyspnea COMPARISON STUDY: No previous studies for comparison. FINDINGS: Interstitial prominence of the mid to lower lung regions bilaterally. No consolidative infiltrates. No evidence for cardiac enlargement. IMPRESSION: Nonspecific interstitial prominence in both lung bases. Possibly of a nonspecific pneumonitis is considered Electronically signed by: Henry Emanuel M.D. 01/23/2017 8:35 PM Dictated Date/Time: 01/23/2017 8:34 PM ABDOMEN AND PELVIS CT WITHOUT CONTRAST CT DOSE: 968.08 mGy.cm HISTORY: Fever. Mental status change. fever, altered mental status TECHNIQUE: Multiaxial CT images of the abdomen and pelvis were performed without contrast. COMPARISON STUDY: None. FINDINGS: The lung bases are clear. The unenhanced liver, spleen, gallbladder, pancreas, kidneys, and adrenal glands are within normal limits. No bowel wall thickening or obstruction. The pelvic organs are unremarkable. No suspicious lytic or blastic osseous lesions. IMPRESSION: No significant abnormality identified within the abdomen or pelvis. Electronically signed by: Henry Emanuel M.D. 01/23/2017 6:13 PM Dictated Date/Time: 01/23/2017 6:[address] CT DOSE: HISTORY: Mental status change OVERDOSE TECHNIQUE: Multiaxial CT images of the head were performed without the use of intravenous contrast. Comparison: None. Findings: Moderate mucosal thickening of the bulk of the right maxillary ethmoid and sphenoid sinuses The calvarium and skull base are intact. The ventricles and sulci are within normal limits. There is no mass, hematoma, midline shift, or acute infarct. Impression: No acute intracranial abnormality. Sinusitis Electronically signed by: Henry Emanuel M.D. 01/23/2017 6:11 PM Dictated Date/Time: 01/23/2017 6:09 PM Laboratory Results 01/23/17 17:25 Red Blood Count 3.84, Mean Corpuscular Volume 85.9, Mean Corpuscular Hemoglobin 29.9, Mean Corpuscular Hemoglobin Concent 34.8, Mean Platelet Volume 10.4, Neutrophils (%) (Auto) 87.6, Lymphocytes (%) (Auto) 5.1, Monocytes (%) (Auto) 6.7, Eosinophils (%) (Auto) 0.0, Basophils (%) (Auto) 0.1, Neutrophils # (Auto) 30.66, Lymphocytes # (Auto) 1.80, Monocytes # (Auto) 2.35, Eosinophils # (Auto) 0.00, Basophils # (Auto) 0.02 01/23/17 19:32 Test 01/23/17 00:00 01/23/17 17:25 01/23/17 17:30 01/23/17 19:10 White Blood Count 35.02 K/uL (4.8-10.8) Red Blood Count 3.84 M/uL (4.2-5.4) Hemoglobin 11.5 g/dL (12.0-16.0) Hematocrit 33.0 % (37-47) Mean Corpuscular Volume 85.9 fL (80-100) Mean Corpuscular Hemoglobin 29.9 pg (25-34) Mean Corpuscular Hemoglobin Concent 34.8 g/dl (32-36) Platelet Count 292 K/uL (130-400) Mean Platelet Volume 10.4 fL (7.4-10.4) Neutrophils (%) (Auto) 87.6 % Lymphocytes (%) (Auto) 5.1 % Monocytes (%) (Auto) 6.7 % Eosinophils (%) (Auto) 0.0 % Basophils (%) (Auto) 0.1 % Neutrophils # (Auto) 30.66 K/uL (1.4-6.5) Lymphocytes # (Auto) 1.80 K/uL (1.2-3.4) Monocytes # (Auto) 2.35 K/uL (0.11-0.59) Eosinophils # (Auto) 0.00 K/uL (0-0.5) Basophils # (Auto) 0.02 K/uL (0-0.2) RDW Standard Deviation 40.8 fL (36.4-46.3) RDW Coefficient of Variation 12.9 % (11.5-14.5) Immature Granulocyte % (Auto) 0.5 % Immature Granulocyte # (Auto) 0.19 K/uL (0.00-0.02) Red Blood Cell Morphology Unremarkable Urine Color DK YELLOW Urine Appearance CLOUDY (CLEAR) Urine pH 5.5 (4.5-7.5) Urine Specific [place] 1.032 (1.000-1.030) Urine Protein 3+ (NEG) Urine Glucose (UA) TRACE (NEG) Urine Ketones 1+ (NEG) Urine Occult Blood TRACE (NEG) Urine Nitrite NEG (NEG) Urine Bilirubin NEG (NEG) Urine Urobilinogen NEG (NEG) Urine Leukocyte Esterase NEG (NEG) Urine WBC (Auto) 1-5 /hpf (0-5) Urine RBC (Auto) 0-4 /hpf (0-4) Urine Hyaline Casts (Auto) 1-5 /lpf (0-5) Urine Epithelial Cells (Auto) >30 /lpf (0-5) Urine Bacteria (Auto) NEG (NEG) Urine Renal Epithelial Cells /lpf (0-5) Urine Pathogenic Casts See comments /lpf (0) CSF Color RED CSF Appearance HAZY CSF WBC 4081 /uL (0-5) CSF RBC 8000 /uL (0) CSF Xanthrochromic NO XANTHOCHROMIA CSF Cell Count Tube # 4 CSF Mononuclear WBCs % 13.2 % CSF Polynuclear WBCs (%) 86.8 % CSF Chemistry Tube # 2 CSF Glucose 2 mg/dl (40-70) CSF Total Protein 741.8 mg/dl (15.0-45.0) Test 01/23/17 19:32 01/23/17 19:39 Prothrombin Time 12.1 SECONDS (9.0-12.0) Prothromb Time International Ratio 1.1 (0.9-1.1) Activated Partial Thromboplast Time 31.6 SECONDS (21.0-31.0) Partial Thromboplastin Ratio 1.2 Anion Gap 12.0 mmol/L (3-11) Est Creatinine Clear Calc Drug Dose 67.7 ml/min Estimated GFR () 75.3 Estimated GFR (Non- 65.0 BUN/Creatinine Ratio 30.0 (10-20) Osmolality 298 mOsm/kg (280-300) Calcium Level 6.8 mg/dl (8.5-10.1) Magnesium Level 2.3 mg/dl (1.8-2.4) Total Bilirubin 0.4 mg/dl (0.2-1) Direct Bilirubin 0.1 mg/dl (0-0.2) Aspartate Amino Transf (AST/SGOT) 7 U/L (15-37) Alanine Aminotransferase (ALT/SGPT) 8 U/L (12-78) Alkaline Phosphatase 46 U/L (45-117) Total Creatine Kinase 236 U/L (26-192) Troponin I 0.030 ng/ml (0-0.045) Total Protein 6.0 gm/dl (6.4-8.2) Albumin 2.3 gm/dl (3.4-5.0) Lipase 50 U/L (73-393) Human Chorionic Gonadotropin, Qual NEG (NEG) Salicylates Level 4.0 mg/dl (2.8-20) Acetaminophen Level 4 ug/ml (10-30) Ethyl Alcohol mg/dL < 3.0 mg/dl (0-3) Lyme Disease IgG Antibody NEG (NEG) Lyme Disease IgM Antibody NEG (NEG) Bedside Lactic Acid Venous 0.71 mmol/L (0.90-1.70) Laboratory results reviewed by me Medications Administered Medications (Trade) Dose Ordered Sig/Barney Route Start Time Stop Time Status Last Admin Dose Admin Lorazepam 1 mg 1 mg NOW STAT IV 01/23/17 17:14 01/23/17 17:17 DC 01/23/17 17:14 1 MG Sodium Chloride 2,000 ml @ 999 mls/hr Q2H1M STAT IV 01/23/17 17:14 01/23/17 19:14 DC 01/23/17 17:39 999 MLS/HR Sodium Chloride (Nss 1000ml) 1,000 ml @ 200 mls/hr Q5H STAT IV 01/23/17 17:14 01/23/17 21:25 DC 01/23/17 19:20 200 MLS/HR Lorazepam (Ativan Inj) 1 mg NOW STAT IV 01/23/17 17:28 01/23/17 17:29 DC 01/23/17 17:43 1 MG Dexamethasone Sodium Phosphate 10 mg 10 mg NOW ONCE IV 01/23/17 17:45 01/23/17 17:46 DC 01/23/17 17:45 10 MG Vancomycin HCl/ Sodium Chloride (Vancomycin Inj/ Nss 500ml) 530 ml @ 200 mls/hr ONE STAT IV 01/23/17 17:41 01/23/17 20:19 DC 01/23/17 19:25 200 MLS/HR Ceftriaxone Sodium 2 gm 2 gm STK-MED ONCE .ROUTE 01/23/17 17:50 01/23/17 17:51 DC 01/23/17 17:50 2 GM Acyclovir Sodium/ Dextrose (Zovirax Inj/D5 100ml) 112 ml @ 100 mls/hr NOW STAT IV 01/23/17 17:52 01/23/17 18:59 DC 01/23/17 18:20 100 MLS/HR Ketorolac Tromethamine (Toradol Inj) 30 mg NOW STAT IV 01/23/17 18:25 01/23/17 18:26 DC 01/23/17 18:30 30 MG Dopamine HCl/ Dextrose 400 mg 400 mg STK-MED ONCE .ROUTE 01/23/17 19:09 01/23/17 19:10 DC 01/23/17 19:20 400 MG Sodium Chloride 1,000 ml @ 999 mls/hr Q1H1M STAT IV 01/23/17 19:41 01/23/17 20:41 DC 01/23/17 18:45 999 MLS/HR Ampicillin Sodium/ Sodium Chloride (Ampicillin Iv/ Nss Ad-Van 100ml) 100 ml @ 200 mls/hr NOW STAT IV 01/23/17 19:43 01/23/17 20:12 DC 01/23/17 20:58 200 MLS/HR Procedure Lumbar Puncture Indication: fever, AMS. Unable to obtain verbal consent secondary to AMS. At this time, the risks of the procedure are less than the risks of NOT performing the procedure. A time out was taken and the correct patient and site identified. The patient was placed in the left lateral decubitus position and the back was prepped with betadine and draped in the standard fashion. The L3 intervertebral space was identified, anesthetized locally with 1% lidocaine without epinephrine, and the spinal needle was inserted through the skin with the bevel parallel to the dural fibers. Fluid was not obtained and a second attempt was made at the same level. Again no fluid was obtained and a 3rd attempt was done at 1 space higher. The needle was carefully advanced into the lumbar cistern and 4 tubes of bloody/cloudy CSF was obtained. The stylet was replaced and the needle was removed. A bandaid was placed and the patient was placed in the supine position. The patient tolerated the procedure well and there were no complications. ECG Indication: altered mental status Rate (beats per minute): 128 Rhythm: sinus tachycardia Findings: nonspecific-ST abn, other (short [place], poor baseline data, QRS 78, QT 298) ED Course 1709: The patient was evaluated in room B11B. A complete history and physical exam was performed. 1714: NSS 1000 ml @ 200 mls/hr IV, NSS 2000 ml @ 999 mls/hr IV, Lorazepam 1 mg IV. 1720: Medications reviewed with ED Pharmacist. 1728: Lorazepam 1 mg IV. 1732: Istat reviewed. Patient is dehydrated and mildly anemic, otherwise no gross abnormality. 1735: A nurse has gotten in contact with the patient's sister. She mentions that the patient had had a bad sinus infection 2 days ago. 174: Ordered Decadron Inj 10 mg IV., Rocephin Inj 2 gm IV, Vancomycin HCl 1500 mg/Sodium Chloride 530 ml @ 200 mls/hr IV., Acyclovir Sodium 600 mg/Dextrose 112 ml @ 100 mls/hr IV. 1743: I reevaluated the patient. She has received her second dose of lorazepam. Her condition is unchanged. She is getting steroids and Rocephin and going to CT. 181: I performed a lumbar puncture according to the procedure note above. 1825: Toradol Inj 30 mg IV. 185: Lidocaine HCl 20 ml. 190: Dopamine HCl/Dextrose 400 mg. 1920: I have met with the patient's partner. They confirmed that the patient had gone to health services earlier this week and was treated for a sinus infection. I informed the partner, who is in contact with the patient's mother, that the patient is critically ill and she should come to the hospital. 0: I discussed the patient's case with Dr. Marcos, [facility] - hospitalist. The patient will be evaluated for further management. 1934: I discussed the patient's case with Dr. Ovalle, [facility] - lead welder. The patient will be evaluated for further management. 1939: Dr. Marcos and Dr. Ovalle are currently at bedside evaluating the patient. 1940: NSS 1000 ml @ 999 mls/hr IV. 1942: Ampicillin Sodium 2000 mg/Sodium Chloride 100 ml @ 200 mls/hr IV. 1945: I was informed that the CSF had a positive white count, concerning for meningitis. 1958: I reevaluated the patient. She remains stable. 2027: I reevaluated the patient. Her vital signs have improved. She is being prepped for the ICU. Medical Decision Triage Nursing notes reviewed. The patient's presentation and history were concerning for altered mental status. Etiologies such as overdose, serotonin syndrome, anticholinergic toxidrome, meningitis, encephalitis, metabolic, infection, hypo/hyperglycemia, electrolyte abnormalities, cardiac sources, intracerebral event, neurologic, as well as others were entertained. The patient was evaluated in room B 11. She was altered. She was agitated and her sensorium was similar to that of a anticholinergic toxidrome. She was tachycardic. Her mucous membranes are dry. Her pupils are dilated. She was unable to follow significant commands. She would follow very basic commands such as opening her mouth and eyes. She was mumbling incoherently. IVs were initiated. Blood work was obtained. Cultures were ordered. ECG did not reveal any abnormal intervals or significant problems other than tachycardia. The patient was given incremental doses of IV Ativan. The patient had her information reviewed by the ED pharmacist and toxicology was consulted. There was some concern as her medications are serotonergic. It was difficult to assess for hyperreflexia or clonus given her level of agitation. A CT of the head was ordered as well as of the abdomen because it seemed that she had some guarding or maybe discomfort on examination but it was difficult to tell given her mental status. She was febrile. I did have concerns for meningitis and therefore ordered Decadron, Rocephin, vancomycin, and acyclovir. This was reviewed with the ED pharmacist. The patient had multiple liters of IV fluid administered. The patient was started on antibiotics and taken to CT imaging. CT imaging did not reveal any significant findings in the abdomen or pelvis. She did have sinusitis. There is no evidence of brain abscess or pots puffy tumor. The patient's blood work by i-STAT revealed dehydration but no significant electrolyte abnormalities were noted. The regular blood work started to trickle back and she was found to have a white blood cell count of 35 ,000. This raised significant concerns for sepsis and meningitis. She received additional doses of IV Ativan to control her agitation. This seemed to help. The patient underwent lumbar puncture as quickly as possible. This procedure was difficult given her ability to cooperate and she was having some difficulty holding still. Overall it went well although it was somewhat time- consuming. It did take several attempts and the fluid was slow to return. The initial fluid seemed to be somewhat traumatic but it did clear with regards to the blood but was still cloudy. No qing pus was obtained. This was sent for stat analysis. Her Gram stain did not reveal any evidence of bacteria however the cell count revealed a significant elevation of the white blood cell count and the protein was markedly elevated. The glucose was very low. Additional history was obtained from the patient's partner who noted she was in [facility] [address] several days ago and was treated for suspected sinusitis. She is unsure of the medication. I did inform her of the severity of this illness. She was in contact with the patient's mother and I did inform her that she is critically ill and recommended she come to see the patient. I did consult with internal medicine, Dr. Marcos as well as with critical care, Dr. Ovalle. They both evaluated the patient in the emergency department. Just prior to their evaluation the patient was mildly hypotensive and was started on dopamine and additional IV fluids. This worked well. She also received IV Toradol for fever control. The patient was evaluated by internal medicine as well as the lead welder. It was recommended to give a dose of ampicillin as well to cover for listeria until further results are obtained. This was ordered. The patient was re-assessed multiple times. The CSF is very concerning for meningitis. The patient was taken to the ICU for further management of this critical issue. The chart was completed utilizing [employer] Speech voice recognition software. Grammatical errors, random word insertions, pronoun errors, and incomplete sentences are an occasional consequence of this system due to software limitations, ambient noise, and hardware issues. Any formal questions or concerns about the content, text, or information contained within the body of this dictation should be directly addressed to the physician for clarification. Consults Time Called: 1924 Consulting Physician: Dr. Marcos [facility] - hospitalist Returned Call: 1929 I discussed the patient's case with him. The patient will be evaluated for further management. Additional Consults: Time Called: 1924 Consulted Physician: Dr. Ovalle [facility] - lead welder Returned Call: 1934 Additional Comments: I discussed the patient's case with him. The patient will be evaluated for further management. Impression Primary Impression: Meningitis Additional Impressions: Fever Altered mental status Critical Care I have personally spent greater than 75 minutes of critical care time in the direct management of this patient. This includes bedside care, interpretation of diagnostic studies, and testing, discussion with consultants, patient, and significant other, and other required patient management activities. This 75 minutes is in excess of all separately billable procedures. Scribe Attestation The scribe's documentation has been prepared under my direction and personally reviewed by me in its entirety. I confirm that the note above accurately reflects all work, treatment, procedures, and medical decision making performed by me. Departure Information Dispostion Being Evaluated By Hospitalist Prescriptions Unable to Obtain Active Prescriptions or Reported Meds Referrals No Doctor, Assigned (PCP) Patient Instructions My [facility] Problem Qualifiers
[2017-01-23 23:10] LABS: BENZODIAZEPINE, URINE NEG (NEG); COCAINE,URINE NEG (NEG); PHENCYCLIDINE, URINE NEG (NEG)
[2017-01-24] VITALS (22 sets, daily range): BP systolic 85–129; BP diastolic 51–79; PULSE 79–120; TEMP 36.8–39.2; O2SAT 91–100
[2017-01-24] MEDS: ACYCLOVIR SOD INJ 500 MG in DEXTROSE 5% 100ML 100 ML IV SCH ×2 (02:13→12:27)
[2017-01-24] MEDS: AMPICILLIN IV 2,000 MG in SODIUM CHLORIDE 0.9% 100ML 100 ML IV SCH ×4 (02:49→20:41)
[2017-01-24] MEDS: ACETAMINOPHEN IV 650 MG in EMPTY BAG 0 ML IV PRN ×2 (02:49→09:18)
[2017-01-24] MEDS: DEXAMETHASONE IV SCH ×4 (02:50→20:42)
[2017-01-24] MEDS ORDERED: AMPICILLIN INJ 2,000 MG in SODIUM CHLORIDE 0.9% 50ML 50 ML IV SCH (03:00)
[2017-01-24] MEDS: CEFTRIAXONE SOD INJ 2,000 MG in DEXTROSE 5% 50ML 50 ML IV SCH ×2 (03:55→17:48)
[2017-01-24] MEDS: D5NSS + 20MEQ KCL 1,000 ML IV SCH (03:55)
[2017-01-24 06:16] LABS: HEMATOCRIT 25.8 % (37-47); MEAN CELL VOLUME 85.4 fL (80-100); MEAN CORPUSCULAR HEMOGLOBIN 28.5 pg (25-34); MEAN CORPUSCULAR HGB CONC 33.3 g/dl (32-36); MEAN PLATELET VOLUME 9.6 fL (7.4-10.4); PLATELET COUNT 203 K/uL (130-400); RED BLOOD COUNT 3.02 M/uL (4.2-5.4); WHITE BLOOD COUNT 24.58 K/uL (4.8-10.8)
[2017-01-24 06:17] LABS: BASO ABS # 0.01 K/uL (0-0.2); COMPLETE YES; IG% 0.7 %; LYMPH % 4.6 %; LYMPH ABS # 1.13 K/uL (1.2-3.4); MONO % 3.7 %
[2017-01-24 06:39] LABS: BUN/CREATININE RATIO 21.8 (10-20); CALCIUM 6.7 mg/dl (8.5-10.1); CREATININE 0.72 mg/dl (0.60-1.20); MAGNESIUM 2.5 mg/dl (1.8-2.4); POTASSIUM 3.9 mmol/L (3.5-5.1)
[2017-01-24 06:46] LABS: PHOSPHORUS 0.9 mg/dl (2.5-4.9)
[2017-01-24] MEDS ORDERED: POTASSIUM PHOS 3 MMOL/1 ML INFUSION IV STA (06:48)
[2017-01-24 07:10] LABS: ESTIMATED AVERAGE GLUCOSE 105 mg/dl; HA1C FLAG Normal (Normal)
[2017-01-24] MEDS ORDERED: POTASSIUM PHOSPHATE INJ 30 MMOL in SODIUM CHLORIDE 0.9% 500ML 500 ML IV ONE (07:30)
[2017-01-24] MEDS ORDERED: VANCOMYCIN INJ 1,250 MG in SODIUM CHLORIDE 0.9% 250ML 250 ML IV SCH (08:00)
[2017-01-24] MEDS: SODIUM CHLOR 0.45% + 20MEQ KCL 1,000 ML IV SCH (08:24)
--- NOTE | 2017-01-24 08:58 | DIAGNOSTIC IMAGING REPORT ---
CHEST ONE VIEW PORTABLE CLINICAL HISTORY: possible bibasilar pneumonitis vs PNA dyspnea COMPARISON STUDY: 01/23/2017 FINDINGS: Subtle increase in prominence of bibasilar parenchymal infiltrative change. Slight blunting left lateral calcific angle. Pulmonary apices are clear. Moderate prominence of the pulmonary vasculature. IMPRESSION: Slightly progressive left and to lesser extent right basilar parenchymal infiltrative change. Underlying stable pulmonary vascular congestion Electronically signed by: Henry Emanuel M.D. 01/24/2017 8:56 AM Dictated Date/Time: 01/24/2017 8:55 AM
[2017-01-24] MEDS: INSULIN ASPART 100 UNITS/ML 3 ML PEN SC SCH ×4 (09:15→23:36)
[2017-01-24 09:40] LABS: BUN/CREATININE RATIO 19.4 (10-20); CALCIUM 7.1 mg/dl (8.5-10.1); CREATININE 0.74 mg/dl (0.60-1.20); POTASSIUM 3.9 mmol/L (3.5-5.1)
[2017-01-24] MEDS ORDERED: ALBUTEROL 0.083% NEBU SOLN 3 ML VIAL INH STA (11:22)
[2017-01-24] MEDS ORDERED: ACETYLCYSTEINE 20% INHAL SOLN ***DISPENSED BY RESP. INH SCH (11:30)
[2017-01-24] MEDS ORDERED: PHARMACY GLYCEMIC MGMT CONSULT PRN (11:45)
[2017-01-24] MEDS ORDERED: ENOXAPARIN 40 MG/0.4 ML SYR SQ ONE (12:00)
[2017-01-24] MEDS: PANTOprazole INJ 40 MG in SYRINGE 0 ML IV SCH (12:27)
--- NOTE | 2017-01-24 13:25 | Family Medicine Progress Note ---
Progress Note Date of Service January 24, 2017. Subjective Pt evaluation today including: conversation w/ patient, conversation w/ family , physical exam, chart review, lab review, review of studies, conversation w/ solutions consultant Pain: well controlled 37-year-old female was brought to the ER after she was found to be in altered mental status in her apartment when her landlord went to check on her after not friends had not heard from her for about 3 days . She was found to be delirious . She was initially treated with Ativan for a suspected serotonin syndrome as there were some pills found her. However she complained about neck stiffness and pain and subsequently a lumbar puncture was done which revealed an elevated white count and low glucose suspicious of bacterial meningitis. She was admitted to ICU for further monitoring. She appears more oriented today, recognize her sister and friend but had some intermittent periods of confusion. Denies any pain Additional Comments: unable to obtain a complete ROS as patient is oriented to self and place only with intermittent periods of confusion. denies pain, nausea/vomiting, headache, blurry vision, diplopia Medications Current Inpatient Medications Medications (Trade) Dose Ordered Sig/Barney Route Start Time Stop Time Status Last Admin Dose Admin Ondansetron HCl 4 mg 4 mg Q6H PRN IV 01/23/17 20:00 02/22/17 19:59 Pantoprazole Sodium/Syringe (Protonix Inj/ Syringe) 10 ml @ 5 mls/min DAILY@1100 IV 01/24/17 11:00 02/23/17 08:59 01/24/17 12:27 5 MLS/MIN Morphine Sulfate (MoRPHine SULFATE INJ) 2 mg Q2H PRN IV 01/23/17 20:00 02/06/17 19:59 Morphine Sulfate 4 mg 4 mg Q2H PRN IV 01/23/17 20:00 02/06/17 19:59 Ceftriaxone Sodium 2000 mg/ Dextrose 70 ml @ 100 mls/hr Q12H IV 01/24/17 05:00 02/03/17 04:59 01/24/17 03:55 100 MLS/HR Dexamethasone Sodium Phosphate 12 mg/Syringe 3 ml @ 1 mls/min Q6H IV 01/24/17 00:00 02/23/17 00:00 01/24/17 08:25 1 MLS/MIN Ampicillin Sodium/ Sodium Chloride (Ampicillin Iv/ Nss 100ml) 100 ml @ 200 mls/hr Q6H IV 01/24/17 03:00 02/03/17 02:59 01/24/17 08:25 200 MLS/HR Vancomycin HCl 1 ea 1 ea UD PRN N/A 01/23/17 21:45 02/22/17 21:44 Potassium Chloride/Sodium Chloride (1/2 Nss + 20meq KCl 1000ml) 1,000 ml @ 25 mls/hr Q24H IV 01/24/17 07:15 01/24/17 08:24 100 MLS/HR Insulin Aspart SLIDING SCALE G... Q6 SC 01/24/17 09:15 02/23/17 09:14 Acetaminophen (Ofirmev Iv) 100 ml @ 400 mls/hr Q8H IV 01/24/17 16:00 02/23/17 15:59 Enoxaparin Sodium (Lovenox Inj) 40 mg Q24H SQ 01/25/17 12:00 02/24/17 11:59 Miscellaneous Information 1 ea 1 ea UD PRN N/A 01/24/17 11:45 02/23/17 11:44 Vancomycin HCl 1250 mg/Dextrose 275 ml @ 125 mls/hr Q10H IV 01/24/17 18:00 02/03/17 07:59 Acyclovir Sodium/ Dextrose (Zovirax Inj/D5 100ml) 111 ml @ 110 mls/hr Q8H IV 01/24/17 18:00 02/03/17 01:59 Heparin Sodium (Porcine) (Heparin 10 Unit/ ml 5 ml Flush) 5 ml PRN PRN FLUSH 01/24/17 13:30 02/23/17 13:29 Objective Vital Signs Date Time Temp Pulse Resp B/P Pulse Ox O2 Delivery O2 Flow Rate FiO2 01/24/17 12:30 100 25 96 Room Air 01/24/17 12:18 Nasal Cannula 2.0 01/24/17 12:00 37.1 106 27 129/79 96 01/24/17 10:00 37.8 115 37 102/54 96 01/24/17 09:00 39.2 01/24/17 08:00 37.2 103 103/72 95 01/24/17 08:00 Nasal Cannula 2.0 01/24/17 08:00 112 25 Nasal Cannula 3.0 01/24/17 06:00 92 32 103/63 95 01/24/17 05:00 85 30 98/57 96 01/24/17 04:01 95 29 108/63 96 01/24/17 04:00 99 Nasal Cannula 2.0 01/24/17 03:00 110 27 108/71 96 01/24/17 02:30 37.5 106 35 98 01/24/17 02:00 36.8 120 36 91 01/24/17 01:02 37.2 90 24 113/63 100 01/24/17 01:01 37.2 88 26 100 01/24/17 00:02 37.2 99 24 94/51 98 01/23/17 23:59 99 Nasal Cannula 2.0 01/23/17 23:16 37.1 105 30 101/57 100 01/23/17 23:01 37.1 101 24 123/64 100 01/23/17 23:00 37.1 93 23 100 01/23/17 22:31 37.2 94 25 109/67 99 01/23/17 22:16 37.2 88 23 110/66 99 01/23/17 22:01 37.2 97 25 107/65 99 01/23/17 21:35 37.3 119 24 127/66 97 Nasal Cannula 3.0 01/23/17 21:21 114 28 127/66 01/23/17 20:36 113 27 95 01/23/17 20:31 113/69 01/23/17 20:22 106/63 01/23/17 20:21 119 27 94 01/23/17 20:20 38.1 01/23/17 20:16 113/54 01/23/17 20:06 115 28 100 01/23/17 20:01 107/48 01/23/17 20:00 126 26 100 01/23/17 19:59 112/48 01/23/17 19:46 95/42 01/23/17 19:45 125 32 100 01/23/17 19:31 96/50 01/23/17 19:30 123 31 100 01/23/17 19:26 104/41 01/23/17 19:16 79/46 01/23/17 19:15 115 17 93 01/23/17 19:08 80/48 01/23/17 19:06 74/48 01/23/17 19:02 116 01/23/17 19:01 81/53 01/23/17 19:00 120 25 92 01/23/17 18:47 119 21 87 01/23/17 18:46 81/64 01/23/17 18:46 81/64 01/23/17 18:45 118 27 91 01/23/17 18:42 119 18 90 01/23/17 18:37 117 35 89 01/23/17 18:32 123 12 117/66 91 01/23/17 18:32 117/66 01/23/17 18:30 123 34 94 01/23/17 18:27 122 23 91 01/23/17 18:26 173/43 01/23/17 18:26 173/43 01/23/17 18:22 133 24 94 01/23/17 18:17 132 30 95 01/23/17 18:15 129 36 94 01/23/17 18:12 131 42 119/ 94 01/23/17 18:12 119/ 01/23/17 17:46 116/74 01/23/17 17:46 116/74 01/23/17 17:45 129 42 94 01/23/17 17:42 134 38 96 01/23/17 17:37 136 38 96 01/23/17 17:36 97 Room Air 01/23/17 17:36 97 Room Air 01/23/17 17:34 124/75 01/23/17 17:32 139 26 96 01/23/17 17:27 140 38 97 01/23/17 17:22 129 23 96 01/23/17 17:17 126 25 01/23/17 17:12 121 30 01/23/17 16:56 38.9 118 24 120/73 95 Room Air 01/23/17 16:54 120/73 Physical Exam General Appearance: WD/WN Eyes: normal inspection ENT: normal ENT inspection, hearing grossly normal Neck: supple Respiratory/Chest: chest non-tender, lungs clear, normal breath sounds, no respiratory distress, no accessory muscle use Cardiovascular: regular rate, rhythm Abdomen: normal bowel sounds, non tender, soft Extremities: no pedal edema Neurologic/Psychiatric: + pertinent finding (oriented to self and place with intermittent periods of confusion) Laboratory Results 01/24/17 05:45 Red Blood Count 3.02, Mean Corpuscular Volume 85.4, Mean Corpuscular Hemoglobin 28.5, Mean Corpuscular Hemoglobin Concent 33.3, Mean Platelet Volume 9.6, Neutrophils (%) (Auto) 91.0, Lymphocytes (%) (Auto) 4.6, Monocytes (%) (Auto) 3.7, Eosinophils (%) (Auto) 0.0, Basophils (%) (Auto) 0.0, Neutrophils # (Auto) 22.38, Lymphocytes # (Auto) 1.13, Monocytes # (Auto) 0.90, Eosinophils # (Auto) 0.00, Basophils # (Auto) 0.01 01/24/17 12:56 Test 01/23/17 17:30 01/23/17 19:10 01/23/17 19:32 01/23/17 19:39 Urine Color DK YELLOW Urine Appearance CLOUDY (CLEAR) Urine pH 5.5 (4.5-7.5) Urine Specific [place] 1.032 (1.000-1.030) Urine Protein 3+ (NEG) Urine Glucose (UA) TRACE (NEG) Urine Ketones 1+ (NEG) Urine Occult Blood TRACE (NEG) Urine Nitrite NEG (NEG) Urine Bilirubin NEG (NEG) Urine Urobilinogen NEG (NEG) Urine Leukocyte Esterase NEG (NEG) Urine WBC (Auto) 1-5 /hpf (0-5) Urine RBC (Auto) 0-4 /hpf (0-4) Urine Hyaline Casts (Auto) 1-5 /lpf (0-5) Urine Epithelial Cells (Auto) >30 /lpf (0-5) Urine Bacteria (Auto) NEG (NEG) Urine Renal Epithelial Cells /lpf (0-5) Urine Pathogenic Casts See comments /lpf (0) CSF Color RED CSF Appearance HAZY CSF WBC 4081 /uL (0-5) CSF RBC 8000 /uL (0) CSF Xanthrochromic NO XANTHOCHROMIA CSF Cell Count Tube # 4 CSF Mononuclear WBCs % 13.2 % CSF Polynuclear WBCs (%) 86.8 % CSF Chemistry Tube # 2 CSF Glucose 2 mg/dl (40-70) CSF Total Protein 741.8 mg/dl (15.0-45.0) Prothrombin Time 12.1 SECONDS (9.0-12.0) Prothromb Time International Ratio 1.1 (0.9-1.1) Activated Partial Thromboplast Time 31.6 SECONDS (21.0-31.0) Partial Thromboplastin Ratio 1.2 Osmolality 298 mOsm/kg (280-300) Total Creatine Kinase 236 U/L (26-192) Troponin I 0.030 ng/ml (0-0.045) Lipase 50 U/L (73-393) Human Chorionic Gonadotropin, Qual NEG (NEG) Salicylates Level 4.0 mg/dl (2.8-20) Acetaminophen Level 4 ug/ml (10-30) Ethyl Alcohol mg/dL < 3.0 mg/dl (0-3) Lyme Disease IgG Antibody NEG (NEG) Lyme Disease IgM Antibody NEG (NEG) Bedside Lactic Acid Venous 0.71 mmol/L (0.90-1.70) Test 01/24/17 00:00 01/24/17 05:45 01/24/17 10:56 01/24/17 12:35 White Blood Count 24.58 K/uL (4.8-10.8) Red Blood Count 3.02 M/uL (4.2-5.4) Hemoglobin 8.6 g/dL (12.0-16.0) Hematocrit 25.8 % (37-47) Mean Corpuscular Volume 85.4 fL (80-100) Mean Corpuscular Hemoglobin 28.5 pg (25-34) Mean Corpuscular Hemoglobin Concent 33.3 g/dl (32-36) Platelet Count 203 K/uL (130-400) Mean Platelet Volume 9.6 fL (7.4-10.4) Neutrophils (%) (Auto) 91.0 % Lymphocytes (%) (Auto) 4.6 % Monocytes (%) (Auto) 3.7 % Eosinophils (%) (Auto) 0.0 % Basophils (%) (Auto) 0.0 % Neutrophils # (Auto) 22.38 K/uL (1.4-6.5) Lymphocytes # (Auto) 1.13 K/uL (1.2-3.4) Monocytes # (Auto) 0.90 K/uL (0.11-0.59) Eosinophils # (Auto) 0.00 K/uL (0-0.5) Basophils # (Auto) 0.01 K/uL (0-0.2) RDW Standard Deviation 40.7 fL (36.4-46.3) RDW Coefficient of Variation 13.0 % (11.5-14.5) Immature Granulocyte % (Auto) 0.7 % Immature Granulocyte # (Auto) 0.16 K/uL (0.00-0.02) Red Blood Cell Morphology Unremarkable Estimated Average Glucose 105 mg/dl Hemoglobin A1c 5.3 % (4.5-5.6) Lactic Acid Level 1.4 mmol/L (0.4-2.0) Phosphorus Level 0.9 mg/dl (2.5-4.9) Magnesium Level 2.5 mg/dl (1.8-2.4) Total Bilirubin 0.3 mg/dl (0.2-1) Direct Bilirubin 0.1 mg/dl (0-0.2) Aspartate Amino Transf (AST/SGOT) 13 U/L (15-37) Alanine Aminotransferase (ALT/SGPT) 11 U/L (12-78) Alkaline Phosphatase 51 U/L (45-117) Total Protein 6.1 gm/dl (6.4-8.2) Albumin 2.2 gm/dl (3.4-5.0) HIV (1&2) Ab and P24 Ag, 4th Gener NEG (NEG) Bedside Glucose 124 mg/dl (70-90) Test 01/24/17 12:56 Anion Gap 10.0 mmol/L (3-11) Est Creatinine Clear Calc Drug Dose 126.3 ml/min Estimated GFR () 135.4 Estimated GFR (Non- 116.8 BUN/Creatinine Ratio 23.7 (10-20) Calcium Level 6.8 mg/dl (8.5-10.1) Date/Time Source Procedure Growth Status 01/23/17 21:30 Nasal MRSA DNA Surveillance Screen - Final Specimen Negative for MRSA by DNA Probe Complete Assessment and Plan 37-year-old female brought to the ER with altered mental status .admitted to the ICU after lumbar puncture suggestive of bacterial meningitis due to increased WBCs and low glucose in CSF. Altered mental status: Likely secondary to bacterial meningitis/encephalitis - Chest x-ray: Nonspecific interstitial prominence in both lung bases. Possibly of a nonspecific pneumonitis is considered - Head CT: No acute changes - WBC on admission>35k - CSF studies: Elevated white count, low glucose. CSF studies including West Nile, echovirus, HSV pending - Lyme serology negative -Blood cultures pending -Empirically being treated with vancomycin, ceftriaxone, acyclovir and dexamethasone - Tylenol when necessary for fevers Anxiety/mood disorder: - Ativan as needed Hypophosphatemia: Phosphorus at 0.9- repleted Hypokalemia: K at 3.9 - repleted DVT prophylaxis: Lovenox Full code Disposition: Monitor in ICU History Resident Physician Supervision Note: I was present with Dr. Maria during the history and exam. I discussed the case with the resident and agree with the findings and plan as documented in the note. Any exceptions or clarifications are listed here. At time of examination, patient suffering from panic atk - high level of anxiety coupled w/ tachycardia, flushing and tachypnea which is familiar to her from similar previous episodes and normally treated w/ xanax at home. Defers relaxation exercises at this time. Presently, reports no overt pain, confusion, lightheadedness, sensory changes, n/v. General Appearance: moderate distress Eye Exam: bilateral eye EOMI, bilateral eye PERRL Respiratory: chest non-tender, lungs clear, normal breath sounds, no respiratory distress Cardiovascular: normal peripheral pulses, no gallop, tachycardia Gastrointestinal: normal bowel sounds, non tender, soft, no organomegaly Assessment/Plan 37 y/o female h/o anxiety presents w/ delirium 2/2 ?bacterial meningitis Delirium/obtunded, concern for meningitis - significantly improved - continue empiric management w/ ABx, AVx while cultures process. Continue dexamethasone. Trend CBC daily.F/U Viral panel. Anxiety - h/o mood disorder per patient - would recommend 0.5mg IV Ativan x 1 to break episode, encouraged relaxation exercises, social support from friend in room Electrolyte disturbances - trend BMP daily, correct as needed. Resident Tracking Resident Involvement: Resident Care Provided Care Provided: Adult Hospital Medicine
[2017-01-24 13:28] LABS: BUN/CREATININE RATIO 23.7 (10-20); CALCIUM 6.8 mg/dl (8.5-10.1); CREATININE 0.62 mg/dl (0.60-1.20); POTASSIUM 3.8 mmol/L (3.5-5.1)
--- NOTE | 2017-01-24 14:06 | Pharmacy Progress Note ---
Glycemic Control Intl Consult Date of Service January 24, 2017. Scope Glycemic Pharmacist consulted by Dr Ovalle on 01/24/17 for glycemic control and to write orders per [facility] inpatient glycemic control protocol Objective Weight (Kilograms): 75.800 Accuchecks BSG (last 24hrs): Test 01/23/17 19:32 01/23/17 23:39 01/24/17 05:45 01/24/17 09:01 Random Glucose 132 mg/dl (70-99) 200 mg/dl (70-99) 165 mg/dl (70-99) Bedside Glucose 196 mg/dl (70-90) Test 01/24/17 12:35 01/24/17 12:56 Bedside Glucose 124 mg/dl (70-90) Random Glucose 143 mg/dl (70-99) Laboratory Data (last 24hrs) Test 01/23/17 17:25 01/23/17 19:32 01/24/17 05:45 01/24/17 09:01 White Blood Count 35.02 K/uL 24.58 K/uL Red Blood Count 3.84 M/uL 3.02 M/uL Hemoglobin 11.5 g/dL 8.6 g/dL Hematocrit 33.0 % 25.8 % Mean Corpuscular Volume 85.9 fL 85.4 fL Mean Corpuscular Hemoglobin 29.9 pg 28.5 pg Mean Corpuscular Hemoglobin Concent 34.8 g/dl 33.3 g/dl Platelet Count 292 K/uL 203 K/uL Mean Platelet Volume 10.4 fL 9.6 fL Neutrophils (%) (Auto) 87.6 % 91.0 % Lymphocytes (%) (Auto) 5.1 % 4.6 % Monocytes (%) (Auto) 6.7 % 3.7 % Eosinophils (%) (Auto) 0.0 % 0.0 % Basophils (%) (Auto) 0.1 % 0.0 % Neutrophils # (Auto) 30.66 K/uL 22.38 K/uL Lymphocytes # (Auto) 1.80 K/uL 1.13 K/uL Monocytes # (Auto) 2.35 K/uL 0.90 K/uL Eosinophils # (Auto) 0.00 K/uL 0.00 K/uL Basophils # (Auto) 0.02 K/uL 0.01 K/uL Anion Gap 12.0 mmol/L 9.0 mmol/L 7.0 mmol/L BUN/Creatinine Ratio 30.0 21.8 19.4 Blood Urea Nitrogen 33 mg/dl 16 mg/dl 14 mg/dl Creatinine 1.10 mg/dl 0.72 mg/dl 0.74 mg/dl Potassium Level 3.0 mmol/L 3.9 mmol/L 3.9 mmol/L Sodium Level 149 mmol/L 153 mmol/L 152 mmol/L Hemoglobin A1c 5.3 % Test 01/24/17 12:56 Anion Gap 10.0 mmol/L BUN/Creatinine Ratio 23.7 Blood Urea Nitrogen 15 mg/dl Creatinine 0.62 mg/dl Potassium Level 3.8 mmol/L Sodium Level 154 mmol/L HbA1c Test 01/24/17 05:45 Hemoglobin A1c 5.3 % (4.5-5.6) Recent Pertinent Medications Outpatient Anti-diabetic Regimen: * no prior h/o DM and recent A1c 5.3% is normal The patient is currently receiving: * Basal insulin: Lantus -- units every -- hours * Correctional Insulin: Novolog Correction per scale ACHS Goal Range: Low 140 mg/dL - High 180 mg/dL Correction Factor: 30 mg/dL/unit * Prandial insulin: Per carb ratio of 1 unit per -- grams CHO consumed * Oral Agents: None currently Risk Factors for Insulin Resistance: * Steroids: Dexamethasone 12mg IV Q 6 hours * Infection: meningitis; receiving Vancomycin + Rocephin + Ampicillin + Acyclovir * Pressors: n/a * IVF: 1/2 NS + 20mEq KCl @ 125cc/hr * Recent Surgery: n/a * Diet: NPO * Mechanical Ventilation: n/a Assessment & Plan ASSESSMENT: 01/24/17 * 37 yo F w/ no prior h/o DM and r/o by recent A1c result (5.3%) * Patient was experiencing hyperglycemia yesterday secondary to high dose IV steroids in combo w/ Dextrose containing IVFs. This AM the steroids continue however Dextrose has been removed from IVF's. She will however continue to receive Dextrose in multiple IV ABX - as Dextrose is the preferred diluent for her now that she is hypernatremic * She remains NPO, but I suspect that she will require prandial insulin when permitted to eat with the current steroid dose; will add carb ratio * As far as basal needs, it's not clear if she needs basal insulin at this time ; fasting BSG was elevated this AM however BSG is now down to 124 prelunch and this is also a fasting value - will hold off on ordering basal unless persistently above 160 PLAN FOR INPATIENT GLYCEMIC CONTROL: * If BSG > 160 this evening, give Lantus 6 units SQ x 1, otherwise no basal insulin today * Continuing correction factor of 30 mg/dl/unit * Adding carb ratio of 1 unit per 20 grams CHO consumed * Continuing goal range of Low 140 mg/dL - High 180 mg/dL * Please note that the plan above was derived based on current level of insulin resistance and hospital stress. These recommendations are appropriate for inpatient admission only. Plan of care upon discharge will need to be reassessed to avoid potential outpatient hypo/hyperglycemia. Thank you.
[2017-01-24] MEDS ORDERED: NURSING VERBAL MED ORDER ONE ×2 (14:45→21:30)
[2017-01-24] MEDS ORDERED: LORAZEPAM 2 MG/ML 1 ML VIAL ONE (14:47)
[2017-01-24] MEDS: ACETAMINOPHEN IV 100 ML IV SCH ×2 (16:00→23:36)
--- NOTE | 2017-01-24 16:13 | Critical Care Progress Note ---
Critical Care Progress Note Date of Service January 24, 2017. ICU Day ICU Day Number: [address] Ovalle Subjective Doing better, seems to have become more alert overnight No other complaints overnight Objective Constitutional: Vital signs as above were reviewed. Eyes: Pupils equal, round, and reactive to light. Extraocular muscles are intact. No proptosis. No photophobia. ENT: Mucous membranes are moist. Oropharynx is clear. No sinus tenderness. TMs are clear bilaterally. Cardiovascular: Heart with a regular rate and rhythm. Pulses are palpable and symmetric in all 4 extremities. No pedal edema appreciated. Respiratory: Lungs clear to auscultation bilaterally. No wheezes, rales, or rhonchi appreciated. No accessory muscle use. No retractions. No increased work of breathing. GI: Abdomen soft, nontender, nondistended. Normal active bowel sounds. No abdominal hernias appreciated. No rebound. No guarding. : No CVA tenderness appreciated. Musculoskeletal: No midline cervical or vertebral tenderness. No gross deformities. No bony tenderness. No calf swelling or tenderness. Integumentary: Warm, dry, no rashes appreciated. Neurological: Patient awake, oriented x 1 Slurred speech Patient can follow simple commands at bedside Lymph: No cervical lymphadenopathy appreciated. Current SOFA Score SOFA Score Response (Comments) Value Platelets (x10) > 150 0 Bilirubin (mg/dL) < 1.2 0 [place] Coma Score 13 - 14 1 Level of Hypotension No Hypotension 0 Creatinine (mg/dL) < 1.2 0 Total 1 Assessment & Plan (1) Meningitis (2) Altered mental status (3) Anxiety (4) Sinusitis NEUROLOGICAL - GCS: 14 - Oriented to person only Anxiety - Takes Xanax at home for anxiety; cannot give home dosage at this time - 0.5 mg IV Lorazapam PRN for anxiety or agitation CARDIAC - BP: 90-100s/50-70; Goal MAP > 60 - Vasopressor support: Dopamine was started in the ED but has been discontinued - IV Fluids: 1/2 NSS + 20 mEq KCl to KVO RESPIRATORY - RR: 25-35 SpO2: 96% - No respiratory distress at the bedside or tachypnea; continue to monitor clinically GASTROINTESTINAL - Diet: More alert, can try liquid diet and advance as tolerated - GI Prophylaxis: Protonix 40 mg IV daily Will discontinue if she tolerates diet - Bowel regimen: Watch for BM RENAL//ENDOCRINE - Cr: 0.72, no baseline available - Electrolytes: Hypernatremia: Patient did receive 4 L NSS in the ED Changed to 1/2 NSS + 20mEq KCl and running KVO; Repeat BMP at noon then sodium levels q 6 hours - IV Fluids: None, as above but only to KVO Hyperglycemia - BS-200 - Insulin SSI started - Expect increased risk for hyperglycemia due to daily Decadron, will aim to start de-escalating HEMATOLOGY/INFECTIOUS DISEASE Bacterial Meningitis - 38.9 on arrival and 38.6 this morning WBC improved today to 24 - Lactate 1.4 - Antibiotics - Continue Vancomycin, Ceftriaxone, Ampicillin and Acyclocir Day 2 of treatment - Decadron 12 mg daily; continue today and aim to start de-escalating tomorrow - CSF Viral Studies pending HSV, Echovirus, WNV, Easter Equine Encephalitis, [place] Equine Encephalitis, Suraj Equine Encephalitis - Hb/Hct 8.6 and 11; likely 2/2 dilutional - DVT Prophylaxis: Lovenox 40 mg daily Patient did have LP but has no evidence of hematoma or bleeding LINES/IV ACCESS - PICC line consent obtained from mother CODE STATUS - Full Code DISPOSITION - ICU for overnight monitoring Resident Physician Supervision Note: Dr. Snow was resident physician during care of patient. I separately evaluated patient and did history and exam. I discussed the case with the resident and generally agree with the findings and plan. Still experiencing significant fevers and alterations in sensorium. Nothing found on CSF culture today, still continue broad-spectrum antibiotics at this time. I have personally spent 40 minutes of critical care time in the direct management of this patient. This is a life/limb threatening event. This includes time spent evaluating patient, direct bedside care, chart review, placing orders, interpretation of diagnostic studies, discussion with consultants, patient, and family members, as well as other required patient management activities. This time is exclusive of all separately billable procedures, and teaching time and separate from and in addition to any other critical care service time. Documented By: Elier Ovalle DO Consults & Procedures Consultants: . Procedures: LP in the emergency department, 01/23/2017 Data Medications: Current Inpatient Medications Medications (Trade) Dose Ordered Sig/Barney Route Start Time Stop Time Status Last Admin Dose Admin Ondansetron HCl 4 mg 4 mg Q6H PRN IV 01/23/17 20:00 6/24/17 19:59 Pantoprazole Sodium/Syringe (Protonix Inj/ Syringe) 10 ml @ 5 mls/min DAILY@1100 IV 01/24/17 11:00 02/23/17 08:59 01/24/17 12:27 5 MLS/MIN Morphine Sulfate (MoRPHine SULFATE INJ) 2 mg Q2H PRN IV 01/23/17 20:00 02/06/17 19:59 Morphine Sulfate 4 mg 4 mg Q2H PRN IV 01/23/17 20:00 02/06/17 19:59 Ceftriaxone Sodium 2000 mg/ Dextrose 70 ml @ 100 mls/hr Q12H IV 01/24/17 05:00 02/03/17 04:59 01/24/17 03:55 100 MLS/HR Dexamethasone Sodium Phosphate 12 mg/Syringe 3 ml @ 1 mls/min Q6H IV 01/24/17 00:00 02/23/17 00:00 01/24/17 14:23 1 MLS/MIN Ampicillin Sodium/ Sodium Chloride (Ampicillin Iv/ Nss 100ml) 100 ml @ 200 mls/hr Q6H IV 01/24/17 03:00 02/03/17 02:59 01/24/17 14:23 200 MLS/HR Vancomycin HCl 1 ea 1 ea UD PRN N/A 01/23/17 21:45 02/22/17 21:44 Potassium Chloride/Sodium Chloride (1/2 Nss + 20meq KCl 1000ml) 1,000 ml @ 25 mls/hr Q24H IV 01/24/17 07:15 01/24/17 08:24 100 MLS/HR Insulin Aspart SLIDING SCALE G... Q6 SC 01/24/17 09:15 02/23/17 09:14 Acetaminophen (Ofirmev Iv) 100 ml @ 400 mls/hr Q8H IV 01/24/17 16:00 02/23/17 15:59 Enoxaparin Sodium (Lovenox Inj) 40 mg Q24H SQ 01/25/17 12:00 02/24/17 11:59 Miscellaneous Information 1 ea 1 ea UD PRN N/A 01/24/17 11:45 02/23/17 11:44 Vancomycin HCl 1250 mg/Dextrose 275 ml @ 125 mls/hr Q10H IV 01/24/17 18:00 02/03/17 07:59 Acyclovir Sodium/ Dextrose (Zovirax Inj/D5 100ml) 111 ml @ 110 mls/hr Q8H IV 01/24/17 18:00 02/03/17 01:59 Heparin Sodium (Porcine) (Heparin 10 Unit/ ml 5 ml Flush) 5 ml PRN PRN FLUSH 01/24/17 13:30 02/23/17 13:29 Miscellaneous Information (Pending Order) 1 ea TODAY@2100 ONCE N/A 01/24/17 21:00 01/24/17 21:01 I & O: 24-Hour Column 01/24/17 08:00 Intake Total 2024 ml Output Total 2900 ml Balance -876 ml Vital Signs: Date Time Temp Pulse Resp B/P Pulse Ox O2 Delivery O2 Flow Rate FiO2 01/24/17 14:00 38.6 106 38 98/73 94 01/24/17 14:00 106 38 98/73 94 01/24/17 12:30 100 25 96 Room Air 01/24/17 12:18 Nasal Cannula 2.0 01/24/17 12:00 37.1 106 27 129/79 96 01/24/17 10:00 37.8 115 37 102/54 96 01/24/17 09:00 39.2 01/24/17 08:00 37.2 103 103/72 95 01/24/17 08:00 Nasal Cannula 2.0 01/24/17 08:00 112 25 Nasal Cannula 3.0 01/24/17 06:00 92 32 103/63 95 01/24/17 05:00 85 30 98/57 96 01/24/17 04:01 95 29 108/63 96 01/24/17 04:00 99 Nasal Cannula 2.0 01/24/17 03:00 110 27 108/71 96 01/24/17 02:30 37.5 106 35 98 01/24/17 02:00 36.8 120 36 91 01/24/17 01:02 37.2 90 24 113/63 100 01/24/17 01:01 37.2 88 26 100 01/24/17 00:02 37.2 99 24 94/51 98 01/23/17 23:59 99 Nasal Cannula 2.0 01/23/17 23:16 37.1 105 30 101/57 100 01/23/17 23:01 37.1 101 24 123/64 100 01/23/17 23:00 37.1 93 23 100 01/23/17 22:31 37.2 94 25 109/67 99 01/23/17 22:16 37.2 88 23 110/66 99 01/23/17 22:01 37.2 97 25 107/65 99 01/23/17 21:35 37.3 119 24 127/66 97 Nasal Cannula 3.0 01/23/17 21:21 114 28 127/66 01/23/17 20:36 113 27 95 01/23/17 20:31 113/69 01/23/17 20:22 106/63 01/23/17 20:21 119 27 94 01/23/17 20:20 38.1 01/23/17 20:16 113/54 01/23/17 20:06 115 28 100 01/23/17 20:01 107/48 01/23/17 20:00 126 26 100 01/23/17 19:59 112/48 01/23/17 19:46 95/42 01/23/17 19:45 125 32 100 01/23/17 19:31 96/50 01/23/17 19:30 123 31 100 01/23/17 19:26 104/41 01/23/17 19:16 79/46 01/23/17 19:15 115 17 93 01/23/17 19:08 80/48 01/23/17 19:06 74/48 01/23/17 19:02 116 01/23/17 19:01 81/53 01/23/17 19:00 120 25 92 01/23/17 18:47 119 21 87 01/23/17 18:46 81/64 01/23/17 18:46 81/64 01/23/17 18:45 118 27 91 01/23/17 18:42 119 18 90 01/23/17 18:37 117 35 89 01/23/17 18:32 123 12 117/66 91 01/23/17 18:32 117/66 01/23/17 18:30 123 34 94 01/23/17 18:27 122 23 91 01/23/17 18:26 173/43 01/23/17 18:26 173/43 01/23/17 18:22 133 24 94 01/23/17 18:17 132 30 95 01/23/17 18:15 129 36 94 01/23/17 18:12 131 42 119/ 94 01/23/17 18:12 119/ 01/23/17 17:46 116/74 01/23/17 17:46 116/74 01/23/17 17:45 129 42 94 01/23/17 17:42 134 38 96 01/23/17 17:37 136 38 96 01/23/17 17:36 97 Room Air 01/23/17 17:36 97 Room Air 01/23/17 17:34 124/75 01/23/17 17:32 139 26 96 01/23/17 17:27 140 38 97 01/23/17 17:22 129 23 96 01/23/17 17:17 126 25 01/23/17 17:12 121 30 01/23/17 16:56 38.9 118 24 120/73 95 Room Air 01/23/17 16:54 120/73 Laboratory Results: Last 24 Hours Test 01/23/17 17:25 01/23/17 17:30 01/23/17 19:10 01/23/17 19:32 White Blood Count 35.02 K/uL Red Blood Count 3.84 M/uL Hemoglobin 11.5 g/dL Hematocrit 33.0 % Mean Corpuscular Volume 85.9 fL Mean Corpuscular Hemoglobin 29.9 pg Mean Corpuscular Hemoglobin Concent 34.8 g/dl Platelet Count 292 K/uL Mean Platelet Volume 10.4 fL Neutrophils (%) (Auto) 87.6 % Lymphocytes (%) (Auto) 5.1 % Monocytes (%) (Auto) 6.7 % Eosinophils (%) (Auto) 0.0 % Basophils (%) (Auto) 0.1 % Neutrophils # (Auto) 30.66 K/uL Lymphocytes # (Auto) 1.80 K/uL Monocytes # (Auto) 2.35 K/uL Eosinophils # (Auto) 0.00 K/uL Basophils # (Auto) 0.02 K/uL RDW Standard Deviation 40.8 fL RDW Coefficient of Variation 12.9 % Immature Granulocyte % (Auto) 0.5 % Immature Granulocyte # (Auto) 0.19 K/uL Red Blood Cell Morphology Unremarkable Urine Color DK YELLOW Urine Appearance CLOUDY Urine pH 5.5 Urine Specific Center 1.032 Urine Protein 3+ Urine Glucose (UA) TRACE Urine Ketones 1+ Urine Occult Blood TRACE Urine Nitrite NEG Urine Bilirubin NEG Urine Urobilinogen NEG Urine Leukocyte Esterase NEG Urine WBC (Auto) 1-5 /hpf Urine RBC (Auto) 0-4 /hpf Urine Hyaline Casts (Auto) 1-5 /lpf Urine Epithelial Cells (Auto) >30 /lpf Urine Bacteria (Auto) NEG Urine Renal Epithelial Cells /lpf Urine Pathogenic Casts See comments /lpf CSF Color RED CSF Appearance HAZY CSF WBC 4081 /uL CSF RBC 8000 /uL CSF Xanthrochromic NO XANTHOCHROMIA CSF Cell Count Tube # 4 CSF Mononuclear WBCs % 13.2 % CSF Polynuclear WBCs (%) 86.8 % CSF Chemistry Tube # 2 CSF Glucose 2 mg/dl CSF Total Protein 741.8 mg/dl Prothrombin Time 12.1 SECONDS Prothromb Time International Ratio 1.1 Activated Partial Thromboplast Time 31.6 SECONDS Partial Thromboplastin Ratio 1.2 Sodium Level 149 mmol/L Potassium Level 3.0 mmol/L Chloride Level 119 mmol/L Carbon Dioxide Level 18 mmol/L Anion Gap 12.0 mmol/L Blood Urea Nitrogen 33 mg/dl Creatinine 1.10 mg/dl Est Creatinine Clear Calc Drug Dose 67.7 ml/min Estimated GFR () 75.3 Estimated GFR (Non- 65.0 BUN/Creatinine Ratio 30.0 Random Glucose 132 mg/dl Osmolality 298 mOsm/kg Calcium Level 6.8 mg/dl Magnesium Level 2.3 mg/dl Total Bilirubin 0.4 mg/dl Direct Bilirubin 0.1 mg/dl Aspartate Amino Transf (AST/SGOT) 7 U/L Alanine Aminotransferase (ALT/SGPT) 8 U/L Alkaline Phosphatase 46 U/L Total Creatine Kinase 236 U/L Troponin I 0.030 ng/ml Total Protein 6.0 gm/dl Albumin 2.3 gm/dl Lipase 50 U/L Human Chorionic Gonadotropin, Qual NEG Salicylates Level 4.0 mg/dl Acetaminophen Level 4 ug/ml Ethyl Alcohol mg/dL < 3.0 mg/dl Lyme Disease IgG Antibody NEG Lyme Disease IgM Antibody NEG Test 01/23/17 19:39 01/23/17 23:39 01/24/17 00:00 01/24/17 05:45 Bedside Lactic Acid Venous 0.71 mmol/L Bedside Glucose 196 mg/dl White Blood Count 24.58 K/uL Red Blood Count 3.02 M/uL Hemoglobin 8.6 g/dL Hematocrit 25.8 % Mean Corpuscular Volume 85.4 fL Mean Corpuscular Hemoglobin 28.5 pg Mean Corpuscular Hemoglobin Concent 33.3 g/dl Platelet Count 203 K/uL Mean Platelet Volume 9.6 fL Neutrophils (%) (Auto) 91.0 % Lymphocytes (%) (Auto) 4.6 % Monocytes (%) (Auto) 3.7 % Eosinophils (%) (Auto) 0.0 % Basophils (%) (Auto) 0.0 % Neutrophils # (Auto) 22.38 K/uL Lymphocytes # (Auto) 1.13 K/uL Monocytes # (Auto) 0.90 K/uL Eosinophils # (Auto) 0.00 K/uL Basophils # (Auto) 0.01 K/uL RDW Standard Deviation 40.7 fL RDW Coefficient of Variation 13.0 % Immature Granulocyte % (Auto) 0.7 % Immature Granulocyte # (Auto) 0.16 K/uL Red Blood Cell Morphology Unremarkable Sodium Level 153 mmol/L Potassium Level 3.9 mmol/L Chloride Level 125 mmol/L Carbon Dioxide Level 19 mmol/L Anion Gap 9.0 mmol/L Blood Urea Nitrogen 16 mg/dl Creatinine 0.72 mg/dl Est Creatinine Clear Calc Drug Dose 108.7 ml/min Estimated GFR () 125.8 Estimated GFR (Non- 108.5 BUN/Creatinine Ratio 21.8 Random Glucose 200 mg/dl Estimated Average Glucose 105 mg/dl Hemoglobin A1c 5.3 % Lactic Acid Level 1.4 mmol/L Calcium Level 6.7 mg/dl Phosphorus Level 0.9 mg/dl Magnesium Level 2.5 mg/dl Total Bilirubin 0.3 mg/dl Direct Bilirubin 0.1 mg/dl Aspartate Amino Transf (AST/SGOT) 13 U/L Alanine Aminotransferase (ALT/SGPT) 11 U/L Alkaline Phosphatase 51 U/L Total Protein 6.1 gm/dl Albumin 2.2 gm/dl HIV (1&2) Ab and P24 Ag, 4th Gener NEG Test 01/24/17 09:01 01/24/17 10:56 01/24/17 12:35 01/24/17 12:56 Sodium Level 152 mmol/L 154 mmol/L Potassium Level 3.9 mmol/L 3.8 mmol/L Chloride Level 125 mmol/L 126 mmol/L Carbon Dioxide Level 20 mmol/L 18 mmol/L Anion Gap 7.0 mmol/L 10.0 mmol/L Blood Urea Nitrogen 14 mg/dl 15 mg/dl Creatinine 0.74 mg/dl 0.62 mg/dl Est Creatinine Clear Calc Drug Dose 105.8 ml/min 126.3 ml/min Estimated GFR () 121.7 135.4 Estimated GFR (Non- 105.0 116.8 BUN/Creatinine Ratio 19.4 23.7 Random Glucose 165 mg/dl 143 mg/dl Calcium Level 7.1 mg/dl 6.8 mg/dl Bedside Glucose 124 mg/dl
[2017-01-24] MEDS: DEXTROSE 5% IV SCH (17:48)
[2017-01-24] MEDS: VANCOMYCIN IV SCH (17:48)
[2017-01-24] MEDS: ACYCLOVIR SOD INJ 550 MG in DEXTROSE 5% 100ML 100 ML IV SCH (17:48)
[2017-01-24] MEDS ORDERED: ALBUMIN HUMAN 5% 12.5 GM/250 ML VIAL IV STA (19:13)
[2017-01-24] MEDS ORDERED: KETOROLAC TROMETHAMINE 30 MG/ML VIAL IV STA (19:13)
[2017-01-24] MEDS ORDERED: KETOROLAC TROMETHAMINE 30 MG/ML VIAL ONE (19:32)
[2017-01-24] MEDS ORDERED: INSULIN GLARGINE SOLOSTAR 100 UNITS/ML 3 ML PEN SC ONE (21:45)
[2017-01-25] VITALS (17 sets, daily range): BP systolic 94–124; BP diastolic 45–78; PULSE 71–118; TEMP 36.5–38.2; O2SAT 92–99
[2017-01-25] MEDS: ACYCLOVIR SOD INJ 550 MG in DEXTROSE 5% 100ML 100 ML IV SCH ×3 (01:44→17:32)
[2017-01-25] MEDS ORDERED: LEVALBUTEROL 1.25MG/3ML NEB INH STA (03:04)
[2017-01-25] MEDS: AMPICILLIN IV 2,000 MG in SODIUM CHLORIDE 0.9% 100ML 100 ML IV SCH ×4 (03:05→21:32)
[2017-01-25] MEDS: DEXAMETHASONE IV SCH ×4 (03:05→21:33)
[2017-01-25] MEDS ORDERED: VANCOMYCIN TROUGH SCH (03:30)
[2017-01-25] MEDS: DEXTROSE 5% IV SCH ×3 (03:50→15:49)
[2017-01-25] MEDS: VANCOMYCIN IV SCH ×3 (03:50→15:49)
[2017-01-25 03:54] LABS: BASO % 0.1 %; BASO ABS # 0.01 K/uL (0-0.2); HEMATOCRIT 25.1 % (37-47); IG% 0.6 %; LYMPH % 9.5 %; LYMPH ABS # 1.82 K/uL (1.2-3.4); MEAN CELL VOLUME 85.7 fL (80-100); MEAN CORPUSCULAR HEMOGLOBIN 29.4 pg (25-34); MEAN CORPUSCULAR HGB CONC 34.3 g/dl (32-36); MEAN PLATELET VOLUME 10.2 fL (7.4-10.4); MONO % 3.3 %; NEUT % 86.5 %; PLATELET COUNT 198 K/uL (130-400); RED BLOOD COUNT 2.93 M/uL (4.2-5.4); WHITE BLOOD COUNT 19.23 K/uL (4.8-10.8)
[2017-01-25] MEDS ORDERED: KETOROLAC TROMETHAMINE 30 MG/ML VIAL IV STA (03:58)
[2017-01-25] MEDS ORDERED: KETOROLAC TROMETHAMINE 30 MG/ML VIAL ONE (04:01)
[2017-01-25 04:14] LABS: BUN/CREATININE RATIO 17.9 (10-20); CALCIUM 6.6 mg/dl (8.5-10.1); CREATININE 0.68 mg/dl (0.60-1.20); MAGNESIUM 2.4 mg/dl (1.8-2.4); POTASSIUM 3.4 mmol/L (3.5-5.1)
[2017-01-25 04:18] LABS: COMPLETE YES; ECHINOCYTES 1+
[2017-01-25 04:28] LABS: PHOSPHORUS 1.3 mg/dl (2.5-4.9)
[2017-01-25] MEDS ORDERED: POTASSIUM PHOS 3 MMOL/1 ML INFUSION IV STA ×2 (04:31→08:44)
[2017-01-25] MEDS ORDERED: POTASSIUM PHOSPHATE INJ 30 MMOL in SODIUM CHLORIDE 0.9% 500ML 500 ML IV ONE (04:45)
[2017-01-25] MEDS: CEFTRIAXONE SOD INJ 2,000 MG in DEXTROSE 5% 50ML 50 ML IV SCH ×2 (04:52→15:49)
[2017-01-25] MEDS: SODIUM CHLOR 0.45% + 20MEQ KCL 1,000 ML IV SCH (04:52)
[2017-01-25] MEDS: INSULIN ASPART 100 UNITS/ML 3 ML PEN SC SCH ×3 (06:23→18:16)
[2017-01-25] MEDS: ACETAMINOPHEN IV 100 ML IV SCH ×2 (08:38→15:49)
[2017-01-25] MEDS ORDERED: LEVALBUTEROL 1.25MG/3ML NEB INH PRN (09:00)
[2017-01-25] MEDS ORDERED: POTASSIUM PHOSPHATE INJ 15 MMOL in SODIUM CHLORIDE 0.9% 250ML 250 ML IV ONE (09:15)
[2017-01-25] MEDS ORDERED: INSULIN GLARGINE SOLOSTAR 100 UNITS/ML 3 ML PEN SC ONE (09:45)
[2017-01-25] MEDS: PANTOprazole INJ 40 MG in SYRINGE 0 ML IV SCH (10:00)
--- NOTE | 2017-01-25 10:44 | Critical Care Progress Note ---
Critical Care Progress Note Date of Service January 25, 2017. ICU Day ICU Day Number: [address] Ovalle Subjective Doing well today States that she is feeling much better No other issues overnight Objective Constitutional: Vital signs as above were reviewed. Eyes: Pupils equal, round, and reactive to light. Extraocular muscles are intact. No proptosis. No photophobia. ENT: Mucous membranes are moist. Oropharynx is clear. No sinus tenderness. TMs are clear bilaterally. Cardiovascular: Heart with a regular rate and rhythm. Pulses are palpable and symmetric in all 4 extremities. No pedal edema appreciated. Respiratory: Lungs clear to auscultation bilaterally. No wheezes, rales, or rhonchi appreciated. No accessory muscle use. No retractions. No increased work of breathing. GI: Abdomen soft, nontender, nondistended. Normal active bowel sounds. No abdominal hernias appreciated. No rebound. No guarding. : No CVA tenderness appreciated. Musculoskeletal: No midline cervical or vertebral tenderness. No gross deformities. No bony tenderness. No calf swelling or tenderness. Integumentary: Warm, dry, no rashes appreciated. No neck stiffness No photophobia Negative Kernig and Brudzinski Neurological: Patient awake, oriented x 1 Slurred speech Patient can follow simple commands at bedside Lymph: No cervical lymphadenopathy appreciated. Current SOFA Score SOFA Score Response (Comments) Value Platelets (x10) > 150 0 Bilirubin (mg/dL) < 1.2 0 [place] Coma Score 15 0 Level of Hypotension No Hypotension 0 Creatinine (mg/dL) < 1.2 0 Total 0 Previous SOFA Scores 1 on 01/24/2017 Assessment & Plan (1) Meningitis (2) Altered mental status (3) Anxiety (4) Sinusitis NEUROLOGICAL - GCS: 15 - Oriented to person, place and time Anxiety - Had panic attack - Given 0.5 mg IV Ativan yesterday, which helped CARDIAC - BP: MAP > 60 Patient likely has low/normal baseline BP given age and absence of other co- morbidities - HR mildly tachycardic Resolving infection, continue to monitor clinically; no evidence of arrhythmia - Vasopressor support: None - IV Fluids: None RESPIRATORY - RR: 20-25 SpO2: 99% on RA - No respiratory distress at the bedside or tachypnea; continue to monitor clinically GASTROINTESTINAL - Diet: Tolerating diet, advance as tolerated - GI Prophylaxis: Discontinue as patient is tolerating diet - Bowel regimen: last BM on 01/24 RENAL//ENDOCRINE - Cr: Stable at 0.68 - Electrolytes: Hypernatremia: Patient did receive 4 L NSS in the ED, Sodium level 151 this morning; Discontinue IV fluids and encourage PO free water intake Hypokalemia: K 3.4 today; repleted 30 mmol Phos this morning; additional 15 mmol KPhos now Hypophosphatemia: 1.3 today; replete as above with KPhos Repeat BMP at noon - IV Fluids: None Hyperglycemia - BS-200 - Insulin SSI started Carbohydrate ratio tightened to 1 per 10 g - If cultures show no growth by 1700 today (48 hours since first dose), Dexamethasone will be discontinued HEMATOLOGY/INFECTIOUS DISEASE Bacterial Meningitis - No fevers overnight; Last fever yesterday at 38.6 @1400 WBC improved today to 19 - Antibiotics - Continue Vancomycin, Ceftriaxone, Ampicillin and Acyclovir Day 2 of treatment - Consult ID for recommendations on duration of treatment - CSF Viral Studies pending HSV cultures pending; D/C acyclovir if negative Other studies could not be performed due to low CSF volume: Echovirus, WNV, Easter Equine Encephalitis, [place] Equine Encephalitis, Suraj Equine Encephalitis - Hb/Hct stable 8.6 and 11; likely 2/2 dilutional - DVT Prophylaxis: Lovenox 40 mg daily LINES/IV ACCESS - PICC line placed 01/24/2017 CODE STATUS - Full Code DISPOSITION - Stable for transfer to medical/surgical floor Resident Physician Supervision Note: Dr. Snow was resident physician during care of patient. I separately evaluated patient and did history and exam. I discussed the case with the resident and generally agree with the findings and plan. Significant improvement in mental status, no growth to date on CSF culture. Patient high risk for neurologic complications therefore we'll continue empiric therapy as it stands. Viral PCR is still outstanding will continue acyclovir. Discussed with pharmacy with regards to increasing vancomycin dosing and interval given that trough is 10 1 to achieve vancomycin level of 20. Also will de-escalate steroids at 48 hours, we do not have definitive evidence of strep pneumoniae infection, she has significant improvement in her mental status and is now dealing with subsequent hyperglycemia. I have discussed the case with Dr. Davalos and she is stable for downgraded out of the ICU. Documented By: Elier Ovalle DO Consults & Procedures Consultants: . Procedures: LP in the emergency department, 01/23/2017 PICC line placement 01/24/2017 Data Medications: Current Inpatient Medications Medications (Trade) Dose Ordered Sig/Barney Route Start Time Stop Time Status Last Admin Dose Admin Ondansetron HCl 4 mg 4 mg Q6H PRN IV 01/23/17 20:00 02/22/17 19:59 Pantoprazole Sodium/Syringe (Protonix Inj/ Syringe) 10 ml @ 5 mls/min DAILY@1100 IV 01/24/17 11:00 02/23/17 08:59 01/25/17 10:00 5 MLS/MIN Morphine Sulfate (MoRPHine SULFATE INJ) 2 mg Q2H PRN IV 01/23/17 20:00 02/06/17 19:59 Morphine Sulfate 4 mg 4 mg Q2H PRN IV 01/23/17 20:00 02/06/17 19:59 Ceftriaxone Sodium 2000 mg/ Dextrose 70 ml @ 100 mls/hr Q12H IV 01/24/17 05:00 02/03/17 04:59 01/25/17 04:52 100 MLS/HR Dexamethasone Sodium Phosphate 12 mg/Syringe 3 ml @ 1 mls/min Q6H IV 01/24/17 00:00 02/23/17 00:00 01/25/17 08:37 1 MLS/MIN Ampicillin Sodium/ Sodium Chloride (Ampicillin Iv/ Nss 100ml) 100 ml @ 200 mls/hr Q6H IV 01/24/17 03:00 02/03/17 02:59 01/25/17 08:37 200 MLS/HR Vancomycin HCl 1 ea 1 ea UD PRN N/A 01/23/17 21:45 02/22/17 21:44 Potassium Chloride/Sodium Chloride (1/2 Nss + 20meq KCl 1000ml) 1,000 ml @ 25 mls/hr Q24H IV 01/24/17 07:15 01/25/17 04:52 25 MLS/HR Insulin Aspart SLIDING SCALE G... Q6 SC 01/24/17 09:15 02/23/17 09:14 01/25/17 06:23 1 UNITS Acetaminophen (Ofirmev Iv) 100 ml @ 400 mls/hr Q8H IV 01/24/17 16:00 02/23/17 15:59 01/25/17 08:38 400 MLS/HR Enoxaparin Sodium (Lovenox Inj) 40 mg Q24H SQ 01/25/17 12:00 02/24/17 11:59 Miscellaneous Information 1 ea 1 ea UD PRN N/A 01/24/17 11:45 02/23/17 11:44 Acyclovir Sodium/ Dextrose (Zovirax Inj/D5 100ml) 111 ml @ 110 mls/hr Q8H IV 01/24/17 18:00 02/03/17 01:59 01/25/17 10:00 110 MLS/HR Heparin Sodium (Porcine) (Heparin 10 Unit/ ml 5 ml Flush) 5 ml PRN PRN FLUSH 01/24/17 13:30 02/23/17 13:29 Levalbuterol 1.25 mg 1.25 mg Q6R PRN INH 01/25/17 09:00 02/24/17 08:59 Vancomycin HCl 1350 mg/Dextrose 277 ml @ 125 mls/hr Q7H IV 01/25/17 10:00 02/04/17 09:59 01/25/17 10:00 125 MLS/HR Potassium Phosphate/Sodium Chloride (Potassium Phosphate Inj/Nss 250ml) 255 ml @ 88 mls/hr TODAY@0915 ONCE IV 01/25/17 09:15 01/25/17 12:08 01/25/17 10:00 88 MLS/HR I & O: 24-Hour Column 01/25/17 08:00 Intake Total 5287 ml Output Total 2025 ml Balance 3262 ml Vital Signs: Date Time Temp Pulse Resp B/P Pulse Ox O2 Delivery O2 Flow Rate FiO2 01/25/17 06:38 37.3 97 20 107/65 97 01/25/17 04:01 36.5 107 29 104/68 99 01/25/17 04:00 94 Nasal Cannula 2.0 01/25/17 04:00 36.5 108 26 99 01/25/17 03:20 100 24 98 Nasal Cannula 2.0 01/25/17 02:01 36.7 74 25 124/64 93 01/25/17 02:00 36.7 71 24 92 01/25/17 00:01 37.3 80 33 109/59 98 01/24/17 23:59 94 Nasal Cannula 2.0 01/24/17 22:00 36.8 100 21 110/79 97 01/24/17 20:00 37.4 80 30 85/55 94 01/24/17 20:00 94 Nasal Cannula 2.0 01/24/17 19:15 37.5 79 27 97/63 93 01/24/17 19:00 37.2 102 27 88/54 95 01/24/17 16:00 Room Air 01/24/17 16:00 37.4 100 31 100/57 96 Room Air 01/24/17 14:00 38.6 106 38 98/73 94 01/24/17 14:00 106 38 98/73 94 01/24/17 12:30 100 25 96 Room Air 01/24/17 12:18 Nasal Cannula 2.0 01/24/17 12:00 37.1 106 27 129/79 96 Laboratory Results: Last 24 Hours Test 01/24/17 10:56 01/24/17 12:35 01/24/17 12:56 01/24/17 15:56 Bedside Glucose 124 mg/dl Sodium Level 154 mmol/L 152 mmol/L Potassium Level 3.8 mmol/L Chloride Level 126 mmol/L Carbon Dioxide Level 18 mmol/L Anion Gap 10.0 mmol/L Blood Urea Nitrogen 15 mg/dl Creatinine 0.62 mg/dl Est Creatinine Clear Calc Drug Dose 126.3 ml/min Estimated GFR () 135.4 Estimated GFR (Non- 116.8 BUN/Creatinine Ratio 23.7 Random Glucose 143 mg/dl Calcium Level 6.8 mg/dl Test 01/24/17 17:53 01/24/17 19:55 01/24/17 20:54 01/24/17 23:30 Bedside Glucose 185 mg/dl 187 mg/dl 139 mg/dl Sodium Level 151 mmol/L 151 mmol/L Test 01/25/17 03:45 01/25/17 05:46 01/25/17 10:00 White Blood Count 19.23 K/uL Red Blood Count 2.93 M/uL Hemoglobin 8.6 g/dL Hematocrit 25.1 % Mean Corpuscular Volume 85.7 fL Mean Corpuscular Hemoglobin 29.4 pg Mean Corpuscular Hemoglobin Concent 34.3 g/dl Platelet Count 198 K/uL Mean Platelet Volume 10.2 fL Neutrophils (%) (Auto) 86.5 % Lymphocytes (%) (Auto) 9.5 % Monocytes (%) (Auto) 3.3 % Eosinophils (%) (Auto) 0.0 % Basophils (%) (Auto) 0.1 % Neutrophils # (Auto) 16.65 K/uL Lymphocytes # (Auto) 1.82 K/uL Monocytes # (Auto) 0.63 K/uL Eosinophils # (Auto) 0.00 K/uL Basophils # (Auto) 0.01 K/uL RDW Standard Deviation 42.4 fL RDW Coefficient of Variation 13.5 % Immature Granulocyte % (Auto) 0.6 % Immature Granulocyte # (Auto) 0.12 K/uL Nucleated RBC Absolute Count (auto) 0.02 K/uL Nucleated Red Blood Cells % 0.1 % Echinocytes 1+ Sodium Level 151 mmol/L Potassium Level 3.4 mmol/L Chloride Level 122 mmol/L Carbon Dioxide Level 19 mmol/L Anion Gap 10.0 mmol/L Blood Urea Nitrogen 12 mg/dl Creatinine 0.68 mg/dl Est Creatinine Clear Calc Drug Dose 115.1 ml/min Estimated GFR () 131.3 Estimated GFR (Non- 113.3 BUN/Creatinine Ratio 17.9 Random Glucose 162 mg/dl Calcium Level 6.6 mg/dl Phosphorus Level 1.3 mg/dl Magnesium Level 2.4 mg/dl Total Bilirubin 0.4 mg/dl Direct Bilirubin 0.1 mg/dl Aspartate Amino Transf (AST/SGOT) 15 U/L Alanine Aminotransferase (ALT/SGPT) 16 U/L Alkaline Phosphatase 46 U/L Total Protein 5.9 gm/dl Albumin 2.3 gm/dl Vancomycin Level Trough 10.9 mcg/ml Bedside Glucose 195 mg/dl Problem Qualifiers (1) Altered mental status: Coma timing: at arrival to emergency department
[2017-01-25] MEDS: ENOXAPARIN 40 MG/0.4 ML SYR SQ SCH (11:54)
--- NOTE | 2017-01-25 13:07 | Pharmacy Progress Note ---
Glycemic Control: Progress Nt Date of Service January 25, 2017. Scope Glycemic Pharmacist consulted by Dr Ovalle on 01/24/17 for glycemic control and to write orders per [facility] inpatient glycemic control protocol. Objective Accuchecks BSG (last 24hrs): Item Value Date Time Bedside Glucose 244 mg/dl H 01/25/17 1149 Bedside Glucose 195 mg/dl H 01/25/17 0546 Bedside Glucose 139 mg/dl H 01/24/17 2330 Bedside Glucose 187 mg/dl H 01/24/17 2054 Bedside Glucose 185 mg/dl H 01/24/17 1753 Bedside Glucose 124 mg/dl H 01/24/17 1235 Random Glucose 200 mg/dl H 01/24/17 0545 HbA1c: Test 01/24/17 05:45 Hemoglobin A1c 5.3 % (4.5-5.6) Recent Pertinent Medications Outpatient Anti-diabetic Regimen: * N/A no previous history of DM, A1c normal The patient is currently receiving: * Basal insulin: Lantus 6 units x 1 for BSG > 160 {received last night 01/24 PM} * Correctional Insulin: Novolog Correction per scale ACHS Goal Range: Low 140 mg/dL - High 180 mg/dL Correction Factor: 30 mg/dL/unit * Prandial insulin: Per carb ratio of 1 unit per 20 grams CHO consumed Risk Factors for Insulin Resistance: * Steroids * Infection * Diet Assessment & Plan ASSESSMENT: * 37yo non-diabetic with severe stress/infection + steroid induced hyperglycemia * BSGs above goal range x 24hrs secondary to dexamethasone 12mg IV Q6hrs + infection * Pt initiated on extremely conservative insulin regimen 01/24 d/t no hx of DM * Lantus 6 units SQ x 1 dose given 01/24 HS for BSG > 160mg/dl {BSG 187 @ HS and then increased to 195mg/dl in AM despite Lantus} * Pt with significant risk factors for insulin resistance. Diet advancing. Steroids have their most profound effect on post-prandial hyperglycemia and expect hyperglycemia to worsen with ongoing dxm + PO intake * Pt meets criteria for severe stress insulin dosing despite no hx of DM * More stringent goal range/target warranted for young patient and to facilitate infection healing. PLAN FOR INPATIENT GLYCEMIC CONTROL: Schedule SQ basal bolus insulin regimen per weight & stress of 2-3. Titrate dosing to maintain AM fasting BSG 80-130mg/ dl and post-prandial BSGs < 180mg/dl * Basal insulin * Needed to cover RTC dosing of dxm. Long acting insulin needed to help cover long acting steroid * Lantus 20units SQ x 1 dose this AM, then Lantus based on BSG BID: Lantus 20 units for BSG > 180mg/dl (stress of 3 dosing) Lantus 13 units for BSG 180mg/dl or below (stress of 2 dosing) * Bolus Insulin per weight & stress of 3 dosing * NovoLog per scale ACHS or Q6hrs while NPO * Goal Range: Low 110 mg/dL - High 140 mg/dL * Correction Factor: 20 mg/dL/unit * Nutritional / Prandial insulin per carb ratio of 1 unit per 7 grams CHO consumed * Pharmacy to continue titrating insulin doses per BSG trends and steroid dosing * Goal to maintain BSGs in 110-140mg/dl range * Please note that the plan above was derived based on current level of insulin resistance and hospital stress. These recommendations are appropriate for inpatient admission only. Plan of care upon discharge will need to be reassessed to avoid potential outpatient hypo/hyperglycemia. Thank you.
--- NOTE | 2017-01-25 14:59 | Pharmacy Progress Note ---
Pharmacy Abx Dose Progress Nt Date of Service January 25, 2017. Pharmacy Dosing Scope The patient WAS receiving the following antimicrobial agents per Pharmacy consult: Vancomycin 1250 mg IV q10h. Dosing was increased to 1350 mg IV q7h this morning. Objective Height (Feet): 5 Height (Inches): 4.00 Weight (Kilograms): 78.400 Vital Signs (Past 12Hrs) Vital Signs Past 12 Hours Date Time Temp Pulse Resp B/P Pulse Ox O2 Delivery O2 Flow Rate FiO2 01/25/17 14:04 37.3 90 28 97 Room Air 89 01/25/17 12:02 37.2 98 24 115/73 92 Room Air 91 01/25/17 12:00 Room Air 01/25/17 10:00 37.3 90 32 94/68 96 Room Air 91 01/25/17 08:00 Room Air 01/25/17 08:00 37.3 100 26 120/45 97 Room Air 91 01/25/17 06:38 37.3 97 20 107/65 97 01/25/17 04:01 36.5 107 29 104/68 99 01/25/17 04:00 94 Nasal Cannula 2.0 01/25/17 04:00 36.5 108 26 99 01/25/17 03:20 100 24 98 Nasal Cannula 2.0 Lab Results (24Hrs) Test 01/25/17 03:45 01/25/17 05:46 01/25/17 11:49 01/25/17 14:41 White Blood Count 19.23 K/uL (4.8-10.8) Red Blood Count 2.93 M/uL (4.2-5.4) Hemoglobin 8.6 g/dL (12.0-16.0) Hematocrit 25.1 % (37-47) Mean Corpuscular Volume 85.7 fL (80-100) Mean Corpuscular Hemoglobin 29.4 pg (25-34) Mean Corpuscular Hemoglobin Concent 34.3 g/dl (32-36) Platelet Count 198 K/uL (130-400) Mean Platelet Volume 10.2 fL (7.4-10.4) Neutrophils (%) (Auto) 86.5 % Lymphocytes (%) (Auto) 9.5 % Monocytes (%) (Auto) 3.3 % Eosinophils (%) (Auto) 0.0 % Basophils (%) (Auto) 0.1 % Neutrophils # (Auto) 16.65 K/uL (1.4-6.5) Lymphocytes # (Auto) 1.82 K/uL (1.2-3.4) Monocytes # (Auto) 0.63 K/uL (0.11-0.59) Eosinophils # (Auto) 0.00 K/uL (0-0.5) Basophils # (Auto) 0.01 K/uL (0-0.2) RDW Standard Deviation 42.4 fL (36.4-46.3) RDW Coefficient of Variation 13.5 % (11.5-14.5) Immature Granulocyte % (Auto) 0.6 % Immature Granulocyte # (Auto) 0.12 K/uL (0.00-0.02) Nucleated RBC Absolute Count (auto) 0.02 K/uL (0-0) Nucleated Red Blood Cells % 0.1 % Echinocytes 1+ Sodium Level 151 mmol/L (136-145) Potassium Level 3.4 mmol/L (3.5-5.1) Chloride Level 122 mmol/L (98-107) Carbon Dioxide Level 19 mmol/L (21-32) Anion Gap 10.0 mmol/L (3-11) Blood Urea Nitrogen 12 mg/dl (7-18) Creatinine 0.68 mg/dl (0.60-1.20) Est Creatinine Clear Calc Drug Dose 115.1 ml/min Estimated GFR () 131.3 Estimated GFR (Non- 113.3 BUN/Creatinine Ratio 17.9 (10-20) Random Glucose 162 mg/dl (70-99) Calcium Level 6.6 mg/dl (8.5-10.1) Phosphorus Level 1.3 mg/dl (2.5-4.9) Magnesium Level 2.4 mg/dl (1.8-2.4) Total Bilirubin 0.4 mg/dl (0.2-1) Direct Bilirubin 0.1 mg/dl (0-0.2) Aspartate Amino Transf (AST/SGOT) 15 U/L (15-37) Alanine Aminotransferase (ALT/SGPT) 16 U/L (12-78) Alkaline Phosphatase 46 U/L (45-117) Total Protein 5.9 gm/dl (6.4-8.2) Albumin 2.3 gm/dl (3.4-5.0) Vancomycin Level Trough 10.9 mcg/ml (SEE COMMENT) Bedside Glucose 195 mg/dl (70-90) 244 mg/dl (70-90) Micro Results Date/Time Source Procedure Growth Status 01/23/17 18:15 Blood Blood Culture - Preliminary NO GROWTH TO DATE. Resulted 01/23/17 17:25 Blood Blood Culture - Preliminary NO GROWTH TO DATE. Resulted 01/23/17 19:10 Cerebral Spinal Fluid Gram Stain - Final Complete 01/23/17 19:10 Cerebral Spinal Fluid CSF Culture - Final NO GROWTH Complete 01/23/17 21:30 Nasal MRSA DNA Surveillance Screen - Final Specimen Negative for MRSA by DNA Probe Complete 01/23/17 00:00 Urine,Catheterized Urine Culture - Preliminary NO GROWTH - LESS THAN 1,000 COLONIES/... Resulted Assessment & Plan Assessment 37 year old female receiving Vancomycin for treatment of bacterial meningitis. Day # 3/ of antimicrobial therapy Plan Vancomycin IV * Trough level of 10.9 mcg/mL obtained today at 0345 AM is subtherapeutic for Meningitis. * Ke = 0.114, t1/2 ~ 6 hrs. * Hence Vancomycin has been increased to 1350 mg IV q7h starting at 1000 today. * Goal trough level for = 20 mcg/mL per Dr. Ovalle. * Trough Vanco level after 3 doses of this new regimen has been ordered for before dose at 0700. Pharmacy will continue to follow and will adjust dose/frequency as necessary. Thank you.
[2017-01-25 15:07] LABS: BUN/CREATININE RATIO 9.6 (10-20); C-REACTIVE PROTEIN 11.9 mg/dl (0-0.29); CALCIUM 6.8 mg/dl (8.5-10.1); CREATININE 0.75 mg/dl (0.60-1.20); POTASSIUM 3.5 mmol/L (3.5-5.1)
[2017-01-25] MEDS ORDERED: NURSING VERBAL MED ORDER ONE (17:30)
[2017-01-25] MEDS ORDERED: POTASSIUM PHOSPHATE IV ONE (18:00)
[2017-01-25] MEDS ORDERED: DEXTROSE 5% IV ONE (18:00)
--- NOTE | 2017-01-25 18:39 | Family Medicine Progress Note ---
Progress Note Date of Service January 25, 2017. Subjective Pt seen and examined at bedside. Reports no headache, vision/hearing changes, n/ v, neck pain, rashes, sensory changes. Some word finding and speech difficulty which is baseline per patient and friend. 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 No fevers reported. Constitutional: No chills, No fever, No sweats Eyes: No discharge, No redness, No worsening of vision ENT: No hearing loss, No nasal symptoms, No sore throat Respiratory: No cough, No shortness of breath, No wheezing Cardiovascular: No chest pain, No edema, No palpitations Abdomen: No diarrhea, No nausea, No pain, No vomiting Neurologic: + memory loss, No numbness/tingling, No weakness Medications Current Inpatient Medications Medications (Trade) Dose Ordered Sig/Barney Route Start Time Stop Time Status Last Admin Dose Admin Ondansetron HCl (Zofran Inj) 4 mg Q6H PRN IV 01/23/17 20:00 02/22/17 19:59 Morphine Sulfate (MoRPHine SULFATE INJ) 2 mg Q2H PRN IV 01/23/17 20:00 02/06/17 19:59 Morphine Sulfate 4 mg 4 mg Q2H PRN IV 01/23/17 20:00 02/06/17 19:59 Ceftriaxone Sodium 2000 mg/ Dextrose 70 ml @ 100 mls/hr Q12H IV 01/24/17 05:00 02/03/17 04:59 01/25/17 15:49 100 MLS/HR Ampicillin Sodium/ Sodium Chloride (Ampicillin Iv/ Nss 100ml) 100 ml @ 200 mls/hr Q6H IV 01/24/17 03:00 02/03/17 02:59 01/25/17 15:49 200 MLS/HR Vancomycin HCl (Consult) 1 ea UD PRN N/A 01/23/17 21:45 02/22/17 21:44 Insulin Aspart SLIDING SCALE G... Q6 SC 01/24/17 09:15 02/23/17 09:14 01/25/17 18:16 9 UNITS Acetaminophen (Ofirmev Iv) 100 ml @ 400 mls/hr Q8H IV 01/24/17 16:00 02/23/17 15:59 01/25/17 15:49 400 MLS/HR Enoxaparin Sodium (Lovenox Inj) 40 mg Q24H SQ 01/25/17 12:00 02/24/17 11:59 01/25/17 11:54 40 MG Miscellaneous Information 1 ea 1 ea UD PRN N/A 01/24/17 11:45 02/23/17 11:44 Acyclovir Sodium/ Dextrose (Zovirax Inj/D5 100ml) 111 ml @ 110 mls/hr Q8H IV 01/24/17 18:00 02/03/17 01:59 01/25/17 17:32 110 MLS/HR Heparin Sodium (Porcine) (Heparin 10 Unit/ ml 5 ml Flush) 5 ml PRN PRN FLUSH 01/24/17 13:30 02/23/17 13:29 Levalbuterol 1.25 mg 1.25 mg Q6R PRN INH 01/25/17 09:00 02/24/17 08:59 Vancomycin HCl 1350 mg/Dextrose 277 ml @ 125 mls/hr Q7H IV 01/25/17 10:00 02/04/17 09:59 01/25/17 15:49 125 MLS/HR Dexamethasone Sodium Phosphate/ Syringe (Decadron Inj/ Syringe) 3 ml @ 1 mls/min Q6H IV 01/25/17 21:00 02/24/17 20:59 Insulin Glargine see protocol text BID SC 01/25/17 21:00 02/24/17 20:59 Potassium Phosphate/Dextrose (Potassium Phosphate Inj/D5W 1000ml) 1,015 ml @ 126.875 mls/hr TODAY@1800 ONCE IV 01/25/17 18:00 01/26/17 01:59 01/25/17 18:15 126.875 MLS/HR Objective Vital Signs Date Time Temp Pulse Resp B/P Pulse Ox O2 Delivery O2 Flow Rate FiO2 01/25/17 18:24 37.2 118 24 92 Room Air 01/25/17 16:09 37.6 90 26 121/74 99 Room Air 01/25/17 16:00 Room Air 01/25/17 14:04 37.3 90 28 97 Room Air 89 01/25/17 12:02 37.2 98 24 115/73 92 Room Air 91 01/25/17 12:00 Room Air 01/25/17 10:00 37.3 90 32 94/68 96 Room Air 91 01/25/17 08:00 Room Air 01/25/17 08:00 37.3 100 26 120/45 97 Room Air 91 01/25/17 06:38 37.3 97 20 107/65 97 01/25/17 04:01 36.5 107 29 104/68 99 01/25/17 04:00 94 Nasal Cannula 2.0 01/25/17 04:00 36.5 108 26 99 01/25/17 03:20 100 24 98 Nasal Cannula 2.0 01/25/17 02:01 36.7 74 25 124/64 93 01/25/17 02:00 36.7 71 24 92 01/25/17 00:01 37.3 80 33 109/59 98 01/24/17 23:59 94 Nasal Cannula 2.0 01/24/17 22:00 36.8 100 21 110/79 97 01/24/17 20:00 37.4 80 30 85/55 94 01/24/17 20:00 94 Nasal Cannula 2.0 01/24/17 19:15 37.5 79 27 97/63 93 01/24/17 19:00 37.2 102 27 88/54 95 Physical Exam General Appearance: WD/WN, no apparent distress Eyes: PERRL, EOMI ENT: normal ENT inspection, hearing grossly normal, pharynx normal Neck: supple, no adenopathy Respiratory/Chest: chest non-tender, lungs clear, normal breath sounds, no respiratory distress Cardiovascular: regular rate, rhythm, no edema, no murmur Abdomen: normal bowel sounds, non tender, soft, no organomegaly Skin: normal color, warm/dry, no rash Laboratory Results 01/25/17 03:45 Red Blood Count 2.93, Mean Corpuscular Volume 85.7, Mean Corpuscular Hemoglobin 29.4, Mean Corpuscular Hemoglobin Concent 34.3, Mean Platelet Volume 10.2, Neutrophils (%) (Auto) 86.5, Lymphocytes (%) (Auto) 9.5, Monocytes (%) (Auto) 3.3, Eosinophils (%) (Auto) 0.0, Basophils (%) (Auto) 0.1, Neutrophils # (Auto) 16.65, Lymphocytes # (Auto) 1.82, Monocytes # (Auto) 0.63, Eosinophils # (Auto) 0.00, Basophils # (Auto) 0.01 01/25/17 14:41 Test 01/25/17 03:45 01/25/17 14:41 01/25/17 17:30 White Blood Count 19.23 K/uL (4.8-10.8) Red Blood Count 2.93 M/uL (4.2-5.4) Hemoglobin 8.6 g/dL (12.0-16.0) Hematocrit 25.1 % (37-47) Mean Corpuscular Volume 85.7 fL (80-100) Mean Corpuscular Hemoglobin 29.4 pg (25-34) Mean Corpuscular Hemoglobin Concent 34.3 g/dl (32-36) Platelet Count 198 K/uL (130-400) Mean Platelet Volume 10.2 fL (7.4-10.4) Neutrophils (%) (Auto) 86.5 % Lymphocytes (%) (Auto) 9.5 % Monocytes (%) (Auto) 3.3 % Eosinophils (%) (Auto) 0.0 % Basophils (%) (Auto) 0.1 % Neutrophils # (Auto) 16.65 K/uL (1.4-6.5) Lymphocytes # (Auto) 1.82 K/uL (1.2-3.4) Monocytes # (Auto) 0.63 K/uL (0.11-0.59) Eosinophils # (Auto) 0.00 K/uL (0-0.5) Basophils # (Auto) 0.01 K/uL (0-0.2) RDW Standard Deviation 42.4 fL (36.4-46.3) RDW Coefficient of Variation 13.5 % (11.5-14.5) Immature Granulocyte % (Auto) 0.6 % Immature Granulocyte # (Auto) 0.12 K/uL (0.00-0.02) Nucleated RBC Absolute Count (auto) 0.02 K/uL (0-0) Nucleated Red Blood Cells % 0.1 % Echinocytes 1+ Magnesium Level 2.4 mg/dl (1.8-2.4) Total Bilirubin 0.4 mg/dl (0.2-1) Direct Bilirubin 0.1 mg/dl (0-0.2) Aspartate Amino Transf (AST/SGOT) 15 U/L (15-37) Alanine Aminotransferase (ALT/SGPT) 16 U/L (12-78) Alkaline Phosphatase 46 U/L (45-117) Total Protein 5.9 gm/dl (6.4-8.2) Albumin 2.3 gm/dl (3.4-5.0) Vancomycin Level Trough 10.9 mcg/ml (SEE COMMENT) Anion Gap 12.0 mmol/L (3-11) Est Creatinine Clear Calc Drug Dose 106.1 ml/min Estimated GFR () 119.7 Estimated GFR (Non- 103.3 BUN/Creatinine Ratio 9.6 (10-20) Calcium Level 6.8 mg/dl (8.5-10.1) Phosphorus Level 1.6 mg/dl (2.5-4.9) C-Reactive Protein 11.90 mg/dl (0-0.29) Procalcitonin 5.39 ng/ml (0-0.5) Bedside Glucose 192 mg/dl (70-90) Assessment and Plan 37 y/o female h/o anxiety presents w/ delirium 2/2 ?bacterial meningitis Delirium/obtunded, concern for meningitis - significantly improved - continue empiric management w/ ABx, AVx while cultures process. Continue dexamethasone until 48hr lala. Trend CBC daily. F/U Viral panel. Anxiety - h/o mood disorder per patient - recommend PO Ativan 0.5mg BID PRN Electrolyte disturbances - trend BMP daily, correct as needed.
[2017-01-25] MEDS ORDERED: INSULIN GLARGINE SOLOSTAR 100 UNITS/ML 3 ML PEN SC SCH (21:00)
--- NOTE | 2017-01-25 21:00 | Medical Consult ---
Consultation Date of Consultation: January 25, 2017. Attending Physician: Toro Garibay MD Reason for Consultation: Duration of antibiotics History of Present Illness 37-year-old female in reported prior good health, apparently was treated for sinus infection approximately 1 week ago with unknown antibiotic, was found at home January 23 with severely altered mental status with high fever. She was brought to the emergency department, and underwent lumbar puncture which revealed marked pleocytosis, predominantly neutrophils, with elevated protein and severe hypoglycorrhachia. Gram stain of the spinal fluid revealed polys, but no organisms. Cultures thus far have been no growth. Patient has been treated empirically with IV vancomycin, ceftriaxone, ampicillin, and acyclovir. Mental status has improved since admission. No report of significant travel or ill contacts. 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[employer]) Allergies Coded Allergies: Penicillin V (Verified Adverse Reaction, Intermediate, VOMITTING, 01/23/17) Current Inpatient Medications Current Inpatient Medications Medications (Trade) Dose Ordered Sig/Barney Route Start Time Stop Time Status Last Admin Dose Admin Ondansetron HCl (Zofran Inj) 4 mg Q6H PRN IV 01/23/17 20:00 02/22/17 19:59 Morphine Sulfate (MoRPHine SULFATE INJ) 2 mg Q2H PRN IV 01/23/17 20:00 02/06/17 19:59 Morphine Sulfate 4 mg 4 mg Q2H PRN IV 01/23/17 20:00 02/06/17 19:59 Ceftriaxone Sodium 2000 mg/ Dextrose 70 ml @ 100 mls/hr Q12H IV 01/24/17 05:00 02/03/17 04:59 01/25/17 15:49 100 MLS/HR Ampicillin Sodium/ Sodium Chloride (Ampicillin Iv/ Nss 100ml) 100 ml @ 200 mls/hr Q6H IV 01/24/17 03:00 02/03/17 02:59 01/25/17 15:49 200 MLS/HR Vancomycin HCl (Consult) 1 ea UD PRN N/A 01/23/17 21:45 02/22/17 21:44 Insulin Aspart SLIDING SCALE G... Q6 SC 01/24/17 09:15 02/23/17 09:14 01/25/17 18:16 9 UNITS Acetaminophen (Ofirmev Iv) 100 ml @ 400 mls/hr Q8H IV 01/24/17 16:00 02/23/17 15:59 01/25/17 15:49 400 MLS/HR Enoxaparin Sodium (Lovenox Inj) 40 mg Q24H SQ 01/25/17 12:00 02/24/17 11:59 01/25/17 11:54 40 MG Miscellaneous Information 1 ea 1 ea UD PRN N/A 01/24/17 11:45 02/23/17 11:44 Acyclovir Sodium/ Dextrose (Zovirax Inj/D5 100ml) 111 ml @ 110 mls/hr Q8H IV 01/24/17 18:00 02/03/17 01:59 01/25/17 17:32 110 MLS/HR Heparin Sodium (Porcine) (Heparin 10 Unit/ ml 5 ml Flush) 5 ml PRN PRN FLUSH 01/24/17 13:30 02/23/17 13:29 Levalbuterol 1.25 mg 1.25 mg Q6R PRN INH 01/25/17 09:00 02/24/17 08:59 Vancomycin HCl 1350 mg/Dextrose 277 ml @ 125 mls/hr Q7H IV 01/25/17 10:00 02/04/17 09:59 01/25/17 15:49 125 MLS/HR Dexamethasone Sodium Phosphate/ Syringe (Decadron Inj/ Syringe) 3 ml @ 1 mls/min Q6H IV 01/25/17 21:00 02/24/17 20:59 Insulin Glargine see protocol text BID SC 01/25/17 21:00 02/24/17 20:59 Potassium Phosphate/Dextrose (Potassium Phosphate Inj/D5W 1000ml) 1,015 ml @ 126.875 mls/hr TODAY@1800 ONCE IV 01/25/17 18:00 01/26/17 01:59 01/25/17 18:15 126.875 MLS/HR Review of Systems Constitutional: + fever Eyes: No problem reported ENT: + nasal symptoms Respiratory: No problem reported Cardiovascular: No problem reported Abdomen: No problem reported Musculoskeletal: No problem reported Genitourinary - Female: No problem reported Neurologic: + problem reported ( see HPI) Psychiatric: No problem reported Endocrine: No problem reported Hematologic / Lymphatic: No problem reported Integumentary: No problem reported Allergic / Immunologic: No problem reported Physical Exam Date Time Temp Pulse Resp B/P Pulse Ox O2 Delivery O2 Flow Rate FiO2 01/25/17 20:17 92 Room Air 01/25/17 19:36 37.5 96 29 107/67 98 Room Air 01/25/17 18:24 37.2 118 24 92 Room Air 01/25/17 16:09 37.6 90 26 121/74 99 Room Air 01/25/17 16:00 Room Air 01/25/17 14:04 37.3 90 28 97 Room Air 89 01/25/17 12:02 37.2 98 24 115/73 92 Room Air 91 01/25/17 12:00 Room Air 01/25/17 10:00 37.3 90 32 94/68 96 Room Air 91 01/25/17 08:00 Room Air 01/25/17 08:00 37.3 100 26 120/45 97 Room Air 91 01/25/17 06:38 37.3 97 20 107/65 97 01/25/17 04:01 36.5 107 29 104/68 99 01/25/17 04:00 94 Nasal Cannula 2.0 01/25/17 04:00 36.5 108 26 99 01/25/17 03:20 100 24 98 Nasal Cannula 2.0 01/25/17 02:01 36.7 74 25 124/64 93 01/25/17 02:00 36.7 71 24 92 01/25/17 00:01 37.3 80 33 109/59 98 01/24/17 23:59 94 Nasal Cannula 2.0 01/24/17 22:00 36.8 100 21 110/79 97 General Appearance: WD/WN, no apparent distress Head: normocephalic, atraumatic Eyes: normal inspection, EOMI, sclerae normal ENT: normal ENT inspection, hearing grossly normal, pharynx normal Neck: supple, no adenopathy, thyroid normal, trachea midline Respiratory/Chest: chest non-tender, lungs clear, normal breath sounds, no respiratory distress Cardiovascular: regular rate, rhythm, no gallop, no murmur Abdomen/GI: normal bowel sounds, non tender, soft, no organomegaly Back: normal inspection, no CVA tenderness Extremities/Musculoskelatal: normal inspection, no calf tenderness, normal capillary refill Neurologic/Psych: alert, oriented x 3 Skin: normal color, warm/dry, no rash Lymphatic: no adenopathy Laboratory Results RUN DATE: 01/25/17 [facility] PAGE 1 RUN TIME: 1211 Specimen Inquiry PATIENT: KRYSTA ASTORGA LOC: [facility] U # : [id number] AGE/SX: 37/F ROOM: [facility] REG : 01/23/[address]: Toro Garibay, : 1980 BED: 1 DIS : STATUS: ADM IN TLOC: SPEC #: [id number] LEATHA: [birth year]17-1910 STATUS: COMP REQ #: [id number] RECD: 01/23/[address] [facility] [address]: Perez Cisneros MD SOURCE: CSF ENTR: 01/23/[address]: Bina Pantoja, Assigned [facility]: ORDERED: CSF CULT/SMR COMMENTS: Comments to Business Management Specialist TUBE # 3 TUBE # TO USE FOR SPINAL FLUID CELL CULTURE= 3 Procedure Result Verified Site GRAM STAIN Final 01/23/17-2002 RESULT MODERATE POLYS NO ORGANISMS SEEN CSF CULTURE Final 01/25/17-121 NO GROWTH Last 24 Hours Test 01/24/17 23:30 01/25/17 03:45 01/25/17 05:46 01/25/17 11:49 Sodium Level 151 mmol/L 151 mmol/L Bedside Glucose 139 mg/dl 195 mg/dl 244 mg/dl White Blood Count 19.23 K/uL Red Blood Count 2.93 M/uL Hemoglobin 8.6 g/dL Hematocrit 25.1 % Mean Corpuscular Volume 85.7 fL Mean Corpuscular Hemoglobin 29.4 pg Mean Corpuscular Hemoglobin Concent 34.3 g/dl Platelet Count 198 K/uL Mean Platelet Volume 10.2 fL Neutrophils (%) (Auto) 86.5 % Lymphocytes (%) (Auto) 9.5 % Monocytes (%) (Auto) 3.3 % Eosinophils (%) (Auto) 0.0 % Basophils (%) (Auto) 0.1 % Neutrophils # (Auto) 16.65 K/uL Lymphocytes # (Auto) 1.82 K/uL Monocytes # (Auto) 0.63 K/uL Eosinophils # (Auto) 0.00 K/uL Basophils # (Auto) 0.01 K/uL RDW Standard Deviation 42.4 fL RDW Coefficient of Variation 13.5 % Immature Granulocyte % (Auto) 0.6 % Immature Granulocyte # (Auto) 0.12 K/uL Nucleated RBC Absolute Count (auto) 0.02 K/uL Nucleated Red Blood Cells % 0.1 % Echinocytes 1+ Potassium Level 3.4 mmol/L Chloride Level 122 mmol/L Carbon Dioxide Level 19 mmol/L Anion Gap 10.0 mmol/L Blood Urea Nitrogen 12 mg/dl Creatinine 0.68 mg/dl Est Creatinine Clear Calc Drug Dose 115.1 ml/min Estimated GFR () 131.3 Estimated GFR (Non- 113.3 BUN/Creatinine Ratio 17.9 Random Glucose 162 mg/dl Calcium Level 6.6 mg/dl Phosphorus Level 1.3 mg/dl Magnesium Level 2.4 mg/dl Total Bilirubin 0.4 mg/dl Direct Bilirubin 0.1 mg/dl Aspartate Amino Transf (AST/SGOT) 15 U/L Alanine Aminotransferase (ALT/SGPT) 16 U/L Alkaline Phosphatase 46 U/L Total Protein 5.9 gm/dl Albumin 2.3 gm/dl Vancomycin Level Trough 10.9 mcg/ml Test 01/25/17 14:41 01/25/17 17:30 Sodium Level 152 mmol/L Potassium Level 3.5 mmol/L Chloride Level 120 mmol/L Carbon Dioxide Level 20 mmol/L Anion Gap 12.0 mmol/L Blood Urea Nitrogen 7 mg/dl Creatinine 0.75 mg/dl Est Creatinine Clear Calc Drug Dose 106.1 ml/min Estimated GFR () 119.7 Estimated GFR (Non- 103.3 BUN/Creatinine Ratio 9.6 Random Glucose 136 mg/dl Calcium Level 6.8 mg/dl Phosphorus Level 1.6 mg/dl C-Reactive Protein 11.90 mg/dl Procalcitonin 5.39 ng/ml Bedside Glucose 192 mg/dl Patient Name: KRYSTA NAVARRO Unit Number: [id number] Dictated: 01/23/171808 Transcribed: 01/23/171808 MS Printed Date/Time: [~ rep prt dt]/[~ rep prt tm] [~ rep ct labl] - [~ rep ct ivnm] [facility] [place] [address] Dictated: 01/23/171808 Transcribed: 01/23/171808 MS Printed Date/Time: [~ rep prt dt]/[~ rep prt tm] [~ rep ct labl] - [~ rep ct ivnm] HEAD CT NONCONTRAST CT DOSE: HISTORY: Mental status change OVERDOSE TECHNIQUE: Multiaxial CT images of the head were performed without the use of intravenous contrast. Comparison: None. Findings: Moderate mucosal thickening of the bulk of the right maxillary ethmoid and sphenoid sinuses The calvarium and skull base are intact. The ventricles and sulci are within normal limits. There is no mass, hematoma, midline shift, or acute infarct. Impression: No acute intracranial abnormality. Sinusitis Electronically signed by: Henry Emanuel M.D. 01/23/2017 6:11 PM Dictated Date/Time: 01/23/2017 6:09 PM The status of this report is Signed. Draft = Not yet reviewed or approved by Radiologist. Signed = Reviewed and approved by Radiologist. <AttendingPhy></AttendingPhy> <FamilyPhy>No Doctor, Assigned</FamilyPhy> < PrimaryPhy>No Doctor, Assigned</PrimaryPhy> <UnitNumber>[id number]</UnitNumber> <VisitNumber>[id number]</VisitNumber> <PatientName>KRYSTA NAVARRO</PatientName > <DateOfBirth>1980</DateOfBirth> <Location>C.EDB</Location> <ServiceDate> 01/23/17</ServiceDate> <MNE>ESINDI</MNE> <OrderingPhy>Maciejczyk, Perez F MD</ OrderingPhy> <OrderingPhyMNE>f rep ord dr varela</OrderingPhyMNE> <DictatingPhyMNE> f rep dict dr varela</DictatingPhyMNE> <CCListMNE>f rep ct mne</CCListMNE> < AdmittingPhyMNE>f pt admit dr varela</AdmittingPhyMNE> <AttendingPhyMNE>f pt attend dr varela</AttendingPhyMNE> <ConsultingPhyMNE>f pt consult dr varela</ConsultingPhyMNE> <FamilyPhyMNE>f pt fam dr varela</FamilyPhyMNE> <OtherPhyMNE>f pt other dr varela</OtherPhyMNE> < PrimaryPhyMNE>f pt prim care dr varela</PrimaryPhyMNE> <ReferringPhyMNE>f pt referring dr varela</ReferringPhyMNE> Assessment & Plan 37-year-old female with what appears to be acute meningitis, with CSF findings consistent with acute bacterial process, but rapid clinical response and negative cultures and Gram stain speaks against this diagnosis. Worry about possibility of acute herpetic meningitis, as well as listeria meningitis,and await PCR studies of CSF. For now, patient should be continued on current regimen pending final culture results and PCR studies. will adjust antibiotics once final culture results are available. We will follow.
[2017-01-26] VITALS (14 sets, daily range): BP systolic 95–129; BP diastolic 58–79; PULSE 69–119; TEMP 36.9–38.2; O2SAT 92–100
[2017-01-26] MEDS: ACETAMINOPHEN IV 100 ML IV SCH ×3 (00:13→16:18)
[2017-01-26] MEDS: VANCOMYCIN IV SCH ×2 (00:14→08:11)
[2017-01-26] MEDS: DEXTROSE 5% IV SCH ×2 (00:14→08:11)
[2017-01-26] MEDS: INSULIN ASPART 100 UNITS/ML 3 ML PEN SC SCH ×5 (00:43→21:00)
[2017-01-26] MEDS: ACYCLOVIR SOD INJ 550 MG in DEXTROSE 5% 100ML 100 ML IV SCH ×3 (02:59→18:37)
[2017-01-26] MEDS: DEXAMETHASONE IV SCH (05:17)
[2017-01-26] MEDS: AMPICILLIN IV 2,000 MG in SODIUM CHLORIDE 0.9% 100ML 100 ML IV SCH ×4 (05:17→22:50)
[2017-01-26] MEDS: CEFTRIAXONE SOD INJ 2,000 MG in DEXTROSE 5% 50ML 50 ML IV SCH (05:23)
[2017-01-26 06:08] LABS: BASO % 0.1 %; BASO ABS # 0.01 K/uL (0-0.2); HEMATOCRIT 23.5 % (37-47); IG% 1.3 %; LYMPH % 10.2 %; LYMPH ABS # 1.06 K/uL (1.2-3.4); MEAN CELL VOLUME 85.8 fL (80-100); MEAN CORPUSCULAR HEMOGLOBIN 29.2 pg (25-34); MEAN PLATELET VOLUME 10.1 fL (7.4-10.4); MONO % 7.1 %; NEUT % 81.3 %; PLATELET COUNT 211 K/uL (130-400); RED BLOOD COUNT 2.74 M/uL (4.2-5.4); WHITE BLOOD COUNT 10.42 K/uL (4.8-10.8)
[2017-01-26] MEDS ORDERED: VANCOMYCIN TROUGH SCH (06:30)
[2017-01-26 06:50] LABS: COMPLETE YES
[2017-01-26 06:53] LABS: ALKALINE PHOSPHATASE 40 U/L (45-117); ALT/SGPT 14 U/L (12-78); AST/SGOT 9 U/L (15-37); BLOOD UREA NITROGEN 6 mg/dl (7-18); BUN/CREATININE RATIO 7.9 (10-20); C-REACTIVE PROTEIN 8.24 mg/dl (0-0.29); CALCIUM 6.7 mg/dl (8.5-10.1); CARBON DIOXIDE 20 mmol/L (21-32); CHLORIDE 111 mmol/L (98-107); GLUCOSE 344 mg/dl (70-99); MAGNESIUM 2.3 mg/dl (1.8-2.4); PHOSPHORUS 3.1 mg/dl (2.5-4.9); POTASSIUM 3.6 mmol/L (3.5-5.1); SODIUM 145 mmol/L (136-145)
[2017-01-26 07:05] LABS: BETA-HYDROXYBUTYRATE 0.49 mg/dL (0.2-2.81)
[2017-01-26] MEDS ORDERED: INSULIN ASPART 100 UNITS/ML 3 ML PEN SC SCH (07:30)
[2017-01-26] MEDS ORDERED: NURSING VERBAL MED ORDER ONE ×2 (07:45→21:00)
--- NOTE | 2017-01-26 09:19 | Critical Care Progress Note ---
Critical Care Progress Note Date of Service January 26, 2017. ICU Day ICU Day Number: [address] Ovalle Subjective No complaints No overnight issues Continues to feel better Objective Constitutional: Vital signs as above were reviewed. Eyes: Pupils equal, round, and reactive to light. Extraocular muscles are intact. No proptosis. No photophobia. ENT: Mucous membranes are moist. Oropharynx is clear. No sinus tenderness. TMs are clear bilaterally. Cardiovascular: Heart with a regular rate and rhythm. Pulses are palpable and symmetric in all 4 extremities. No pedal edema appreciated. Respiratory: Lungs clear to auscultation bilaterally. No wheezes, rales, or rhonchi appreciated. No accessory muscle use. No retractions. No increased work of breathing. GI: Abdomen soft, nontender, nondistended. Normal active bowel sounds. No abdominal hernias appreciated. No rebound. No guarding. : No CVA tenderness appreciated. Musculoskeletal: No midline cervical or vertebral tenderness. No gross deformities. No bony tenderness. No calf swelling or tenderness. Integumentary: Warm, dry, no rashes appreciated. No neck stiffness No photophobia Negative Kernig and Brudzinski Neurological: Alert and oriented x 3; speech appropriate; CAM-ICU negative Lymph: No cervical lymphadenopathy appreciated. Current SOFA Score SOFA Score Response (Comments) Value Platelets (x10) > 150 0 Bilirubin (mg/dL) < 1.2 0 [place] Coma Score 15 0 Level of Hypotension No Hypotension 0 Creatinine (mg/dL) < 1.2 0 Total 0 Previous SOFA Scores 1 on 01/24/2017 Assessment & Plan (1) Meningitis (2) Altered mental status (3) Anxiety (4) Sinusitis NEUROLOGICAL - GCS: 15; Oriented to person, place and time; back to baseline mental status Anxiety/Panic - Ativan 0.5 mg PO can be given if she has panic attack CARDIAC - BP: MAP > 60, stable - Tachycardia resolved: HR 70-80 - No vasopressor support or IVF RESPIRATORY - RR: 20-25 SpO2: 94% on room air - No respiratory distress at the bedside or tachypnea; continue to monitor clinically GASTROINTESTINAL - Diet: Tolerating diet, advance as tolerated - GI Prophylaxis: Discontinue as patient is tolerating diet - Bowel regimen: last BM on 01/24 RENAL//ENDOCRINE - Cr: Stable at 0.70 - Electrolytes: Na improved to 145 K 3.6 Phos 3.1 - IV Fluids: None Hyperglycemia - BS-190 - Continue SSI - AC/HS checks - Watch for improvement as patent is now off corticosteroids HEMATOLOGY/INFECTIOUS DISEASE Bacterial Meningitis - WBC improved to 10 - Continue current antibiotics; ID consulted and recommendations are appreciated - Continue Vancomycin, Ceftriaxone, Ampicillin and Acyclovir Day 3 of treatment - CSF HSV studies pending - Hb/Hct stable 8.0/23.5 11 on admission Likely bone marrow suppression, follow daily Smear unremarkable - DVT Prophylaxis: Lovenox 40 mg daily LINES/IV ACCESS - PICC line placed 01/24/2017 CODE STATUS - Full Code DISPOSITION - Stable for transfer to medical/surgical floor Resident Physician Supervision Note: Dr. Snow was resident physician during care of patient. I separately evaluated patient and did history and exam. I discussed the case with the resident and generally agree with the findings and plan. Continued improvement, low-grade temps. Reviewed ID recommendations, still awaiting viral studies, no growth on CSF. Dosing increased yesterday for vancomycin, random trough improved. Stable for downgraded out of ICU. Documented By: Elier Ovalle DO Consults & Procedures Consultants: . Procedures: LP in the emergency department, 01/23/2017 PICC line placement 01/24/2017 Data Medications: Current Inpatient Medications Medications (Trade) Dose Ordered Sig/Barney Route Start Time Stop Time Status Last Admin Dose Admin Ondansetron HCl (Zofran Inj) 4 mg Q6H PRN IV 01/23/17 20:00 02/22/17 19:59 Morphine Sulfate (MoRPHine SULFATE INJ) 2 mg Q2H PRN IV 01/23/17 20:00 02/06/17 19:59 Morphine Sulfate 4 mg 4 mg Q2H PRN IV 01/23/17 20:00 02/06/17 19:59 Ceftriaxone Sodium 2000 mg/ Dextrose 70 ml @ 100 mls/hr Q12H IV 01/24/17 05:00 02/03/17 04:59 01/26/17 05:23 100 MLS/HR Ampicillin Sodium/ Sodium Chloride (Ampicillin Iv/ Nss 100ml) 100 ml @ 200 mls/hr Q6H IV 01/24/17 03:00 02/03/17 02:59 01/26/17 08:11 200 MLS/HR Vancomycin HCl 1 ea 1 ea UD PRN N/A 01/23/17 21:45 02/22/17 21:44 Acetaminophen (Ofirmev Iv) 100 ml @ 400 mls/hr Q8H IV 01/24/17 16:00 02/23/17 15:59 01/26/17 08:11 400 MLS/HR Enoxaparin Sodium (Lovenox Inj) 40 mg Q24H SQ 01/25/17 12:00 02/24/17 11:59 01/25/17 11:54 40 MG Miscellaneous Information 1 ea 1 ea UD PRN N/A 01/24/17 11:45 02/23/17 11:44 Acyclovir Sodium/ Dextrose (Zovirax Inj/D5 100ml) 111 ml @ 110 mls/hr Q8H IV 01/24/17 18:00 02/03/17 01:59 01/26/17 08:11 110 MLS/HR Heparin Sodium (Porcine) (Heparin 10 Unit/ ml 5 ml Flush) 5 ml PRN PRN FLUSH 01/24/17 13:30 02/23/17 13:29 Levalbuterol 1.25 mg 1.25 mg Q6R PRN INH 01/25/17 09:00 02/24/17 08:59 Vancomycin HCl/ Dextrose (Vancomycin Inj/ D5 250ml) 277 ml @ 125 mls/hr Q7H IV 01/25/17 10:00 02/04/17 09:59 01/26/17 08:11 125 MLS/HR Insulin Glargine (Lantus Solostar Pen) see protocol text BID SC 01/25/17 21:00 02/24/17 20:59 Future Hold 01/25/17 21:44 13 UNIT Insulin Aspart (novoLOG ASPART) SLIDING SCALE G... ACHS ID 01/26/17 11:00 02/25/17 10:59 Insulin Aspart (novoLOG ASPART) SLIDING SCALE G... Marshall@0730 ID 01/26/17 07:30 01/26/17 10:00 01/26/17 08:13 3 UNITS I & O: 24-Hour Column 01/26/17 07:59 Intake Total 6629 ml Output Total 7900 ml Balance -1271 ml Vital Signs: Date Time Temp Pulse Resp B/P Pulse Ox O2 Delivery O2 Flow Rate FiO2 01/26/17 06:01 37.7 79 18 121/77 100 Room Air 01/26/17 05:55 37.7 79 25 129/79 100 Room Air 01/26/17 04:51 92 Room Air 01/26/17 04:01 37.6 78 19 117/73 100 Room Air 01/26/17 03:01 37.8 87 24 121/75 100 Room Air 01/26/17 02:01 37.8 73 28 112/79 98 Room Air 01/26/17 01:01 38.1 82 24 114/64 96 Room Air 01/26/17 00:36 92 Room Air 01/26/17 00:01 38.2 88 24 119/77 100 Room Air 01/25/17 23:57 38.2 80 27 122/78 98 Room Air 01/25/17 22:00 37.9 87 27 108/74 94 Room Air 01/25/17 20:17 92 Room Air 01/25/17 19:36 37.5 96 29 107/67 98 Room Air 01/25/17 18:24 37.2 118 24 92 Room Air 01/25/17 16:09 37.6 90 26 121/74 99 Room Air 01/25/17 16:00 Room Air 01/25/17 14:04 37.3 90 28 97 Room Air 89 01/25/17 12:02 37.2 98 24 115/73 92 Room Air 91 01/25/17 12:00 Room Air 01/25/17 10:00 37.3 90 32 94/68 96 Room Air 91 Laboratory Results: Last 24 Hours Test 01/25/17 11:49 01/25/17 14:41 01/25/17 17:30 01/25/17 21:35 Bedside Glucose 244 mg/dl 192 mg/dl 163 mg/dl Sodium Level 152 mmol/L Potassium Level 3.5 mmol/L Chloride Level 120 mmol/L Carbon Dioxide Level 20 mmol/L Anion Gap 12.0 mmol/L Blood Urea Nitrogen 7 mg/dl Creatinine 0.75 mg/dl Est Creatinine Clear Calc Drug Dose 106.1 ml/min Estimated GFR () 119.7 Estimated GFR (Non- 103.3 BUN/Creatinine Ratio 9.6 Random Glucose 136 mg/dl Calcium Level 6.8 mg/dl Phosphorus Level 1.6 mg/dl C-Reactive Protein 11.90 mg/dl Procalcitonin 5.39 ng/ml Test 01/26/17 00:39 01/26/17 05:33 01/26/17 05:53 01/26/17 06:32 Bedside Glucose 191 mg/dl 176 mg/dl Sodium Level 145 mmol/L Potassium Level 3.6 mmol/L Chloride Level 111 mmol/L Carbon Dioxide Level 20 mmol/L Anion Gap 14.0 mmol/L Blood Urea Nitrogen 6 mg/dl Creatinine 0.70 mg/dl Est Creatinine Clear Calc Drug Dose 113.7 ml/min Estimated GFR () 130.1 Estimated GFR (Non- 112.3 BUN/Creatinine Ratio 7.9 Random Glucose 344 mg/dl Calcium Level 6.7 mg/dl Phosphorus Level 3.1 mg/dl Magnesium Level 2.3 mg/dl Total Bilirubin 0.2 mg/dl Direct Bilirubin < 0.1 mg/dl Aspartate Amino Transf (AST/SGOT) 9 U/L Alanine Aminotransferase (ALT/SGPT) 14 U/L Alkaline Phosphatase 40 U/L C-Reactive Protein 8.24 mg/dl Total Protein 6.1 gm/dl Albumin 1.9 gm/dl Beta-Hydroxybutyric Acid 0.49 mg/dL Procalcitonin 2.61 ng/ml Vancomycin Level Trough 20.4 mcg/ml White Blood Count 10.42 K/uL Red Blood Count 2.74 M/uL Hemoglobin 8.0 g/dL Hematocrit 23.5 % Mean Corpuscular Volume 85.8 fL Mean Corpuscular Hemoglobin 29.2 pg Mean Corpuscular Hemoglobin Concent 34.0 g/dl Platelet Count 211 K/uL Mean Platelet Volume 10.1 fL Neutrophils (%) (Auto) 81.3 % Lymphocytes (%) (Auto) 10.2 % Monocytes (%) (Auto) 7.1 % Eosinophils (%) (Auto) 0.0 % Basophils (%) (Auto) 0.1 % Neutrophils # (Auto) 8.47 K/uL Lymphocytes # (Auto) 1.06 K/uL Monocytes # (Auto) 0.74 K/uL Eosinophils # (Auto) 0.00 K/uL Basophils # (Auto) 0.01 K/uL RDW Standard Deviation 42.7 fL RDW Coefficient of Variation 13.5 % Immature Granulocyte % (Auto) 1.3 % Immature Granulocyte # (Auto) 0.14 K/uL Nucleated RBC Absolute Count (auto) 0.03 K/uL Nucleated Red Blood Cells % 0.2 % Red Blood Cell Morphology Unremarkable Problem Qualifiers (1) Altered mental status: Coma timing: at arrival to emergency department
--- NOTE | 2017-01-26 10:35 | Pharmacy Progress Note ---
Glycemic Control: Progress Nt Date of Service January 26, 2017. Scope Glycemic Pharmacist consulted by Dr Ovalle on 01/24/17 for glycemic control and to write orders per [facility] inpatient glycemic control protocol. Objective Accuchecks BSG (last 24hrs): Test 01/25/17 11:49 01/25/17 17:30 01/25/17 21:35 Bedside Glucose 244 mg/dl (70-90) 192 mg/dl (70-90) 163 mg/dl (70-90) Test 01/26/17 00:39 01/26/17 06:32 Bedside Glucose 191 mg/dl (70-90) 176 mg/dl (70-90) Laboratory Data (last 24hrs) HbA1c: Test 01/24/17 05:45 Hemoglobin A1c 5.3 % (4.5-5.6) Recent Pertinent Medications Outpatient Anti-diabetic Regimen: * N/A no previous history of DM, A1c normal The patient is currently receiving: * Basal insulin: Lantus 20-13 units SQ BID based on BSG * Correctional Insulin: Novolog Correction per scale ACHS Goal Range: Low 140 mg/dL - High 180 mg/dL Correction Factor: 20 mg/dL/unit * Prandial insulin: Per carb ratio of 1 unit per 7 grams CHO consumed Risk Factors for Insulin Resistance: * Steroids: -W-z-[id number]-b-q-t-z-u-i-s-o-n-e- -1-2-m-g- -I-V- -Q-6-h-r-s- --> Discontinued * Infection * Diet Assessment & Plan ASSESSMENT: * See note from 01/25 for more background info, in short: 01/24 01/25 01/26 Risk factors for insulin resistance DXM 12mg IV Q6hrs Infection Dextrose IVF DXM 12mg IV Q6hrs Infection Dextrose IVF -D-X-M- -1-2-m-g- -I-V- -Q-6-h-r-s- Infection -A-v-h-t-r-o-s-e- -I-V-F- Insulin Orders Lantus 6 units in PM NovoLog Q6 CF 30 CR 20 Lantus 20 units in AM + 13 units in PM NovoLog Q6 CF 20 CR 7 Need to empirically decrease Total daily insulin dose 7 units 6 units basal 1 units prandial/correctional insulin 52 units 33 units basal 19 units prandial/correctional insulin BSGs 165, 124, 185, 187 195, 244, 192, 163, 191 176 {GLU = 344?} * Pt receiving weight based SQ basal bolus insulin regimen for hyperglycemia secondary to severe stress/infection + steroid induced hyperglycemia * Changes needed to insulin regimen: * Dexamethasone D/c --> this should result in markedly improved BSGs. However, d.t extremely long and variable duration of action of dxm hyperglycemia may persist for another 24hrs or so * AM Fasting BSG = 176 mg/dl. This is in slightly above goal range for patient based on inpatient targets and co-morbidities. However, now that dxm d/c expect this to trend downwards without exogenous insulin. Therefore Basal insulin needs decreased vs. stopped? * Steroids have their most profound effect on post-prandial hyperglycemia. Aggressive {wt & st =3} bolus parameters initiated with dxm. Expect this will no longer be needed. Will empirically reduce to prevent hypo. * Hypernatremia resolving --> diluents for abx to be changed back to NSS {were in dextrose} Stopping dextrose IVF should improve sustained hyperglycemia as well. PLAN FOR INPATIENT GLYCEMIC CONTROL: Empirically reduce SQ basal bolus insulin regimen secondary to dxm & dextrose IV d/c. Titrate dosing to maintain AM fasting BSG 80-130mg/dl and post-prandial BSGs < 180mg/dl * Basal insulin * HOLD Lantus this AM. * Will redose with low stress based dosing if/when BSG > 180mg/dl * Lantus 10-15 units SQ Q24hrs * Bolus Insulin * Decrease to weight & stress of 2 dosing * NovoLog per scale ACHS or Q6hrs while NPO * Goal Range: Low 110 mg/dL - High 140 mg/dL * Correction Factor: 30 mg/dL/unit * Nutritional / Prandial insulin per carb ratio of 1 unit per 10 grams CHO consumed * Pharmacy to continue titrating insulin doses per BSG trends and steroid dosing * Goal to maintain BSGs in 110-140mg/dl range * More stringent goal range/target warranted for young patient and to facilitate infection healing. * Please note that the plan above was derived based on current level of insulin resistance and hospital stress. These recommendations are appropriate for inpatient admission only. Plan of care upon discharge will need to be reassessed to avoid potential outpatient hypo/hyperglycemia. Thank you.
--- NOTE | 2017-01-26 11:43 | Pharmacy Progress Note ---
Pharmacy Abx Dose Short Note Date of Service January 26, 2017. Assessment & Plan Assessment 37 year old female receiving Vancomycin for treatment of Meningitis Day # 12/09 of antimicrobial therapy. Plan Vancomycin * Trough level of 20.4 mcg/mL was drawn 1.5 hrs before the next dose was due, however is still therapeutic for Meningitis. * Goal trough = 20 mcg/ml and this level is very close to goal. * Therefore, will continue with Vancomycin 1350 mg IV q7h. * Another trough Vanco level has been ordered for tomorrow AM before dose at 1100. Pharmacy will continue to follow and will adjust dose/frequency as necessary. Thank you.
[2017-01-26] MEDS: ENOXAPARIN 40 MG/0.4 ML SYR SQ SCH (12:15)
[2017-01-26] MEDS ORDERED: INSULIN GLARGINE SOLOSTAR 100 UNITS/ML 3 ML PEN SC ONE (12:30)
[2017-01-26] MEDS: VANCOMYCIN INJ 1,350 MG in SODIUM CHLORIDE 0.9% 250ML 250 ML IV SCH ×2 (13:22→22:50)
--- NOTE | 2017-01-26 18:04 | Family Medicine Progress Note ---
Progress Note Date of Service January 26, 2017. Subjective Pt seen and examined at bedside. no acute events overnight. Mild b/l proximal thigh pain which is alleviated by mobility. Presently reports no SARGENT, vision changes, CP/SOB, palpitation, n/v/d/c, rashes, lightheadedness. Constitutional: No chills, No fever, No sweats Eyes: No diplopia, No redness, No worsening of vision ENT: No hearing loss, No nasal symptoms, No tinnitus Respiratory: No cough, No sputum, No wheezing Cardiovascular: No chest pain, No edema, No palpitations Abdomen: No diarrhea, No nausea, No pain, No vomiting Neurologic: No memory loss, No numbness/tingling, No weakness Medications Current Inpatient Medications Medications (Trade) Dose Ordered Sig/Barney Route Start Time Stop Time Status Last Admin Dose Admin Ondansetron HCl (Zofran Inj) 4 mg Q6H PRN IV 01/23/17 20:00 02/22/17 19:59 Morphine Sulfate (MoRPHine SULFATE INJ) 2 mg Q2H PRN IV 01/23/17 20:00 02/06/17 19:59 Morphine Sulfate 4 mg 4 mg Q2H PRN IV 01/23/17 20:00 02/06/17 19:59 Ceftriaxone Sodium 2000 mg/ Dextrose 70 ml @ 100 mls/hr Q12H IV 01/24/17 05:00 02/03/17 04:59 01/26/17 05:23 100 MLS/HR Ampicillin Sodium/ Sodium Chloride (Ampicillin Iv/ Nss 100ml) 100 ml @ 200 mls/hr Q6H IV 01/24/17 03:00 02/03/17 02:59 01/26/17 14:42 200 MLS/HR Vancomycin HCl 1 ea 1 ea UD PRN N/A 01/23/17 21:45 02/22/17 21:44 Acetaminophen (Ofirmev Iv) 100 ml @ 400 mls/hr Q8H IV 01/24/17 16:00 02/23/17 15:59 01/26/17 16:18 400 MLS/HR Enoxaparin Sodium (Lovenox Inj) 40 mg Q24H SQ 01/25/17 12:00 02/24/17 11:59 01/26/17 12:15 40 MG Miscellaneous Information 1 ea 1 ea UD PRN N/A 01/24/17 11:45 02/23/17 11:44 Acyclovir Sodium/ Dextrose (Zovirax Inj/D5 100ml) 111 ml @ 110 mls/hr Q8H IV 01/24/17 18:00 02/03/17 01:59 01/26/17 08:11 110 MLS/HR Heparin Sodium (Porcine) (Heparin 10 Unit/ ml 5 ml Flush) 5 ml PRN PRN FLUSH 01/24/17 13:30 02/23/17 13:29 Levalbuterol (Xopenex 1.25MG/ 3ML Neb) 1.25 mg Q6R PRN INH 01/25/17 09:00 02/24/17 08:59 Insulin Aspart SLIDING SCALE G... ACHS SC 01/26/17 11:00 02/25/17 10:59 01/26/17 12:16 5 UNITS Vancomycin HCl/ Sodium Chloride (Vancomycin Inj/ Nss 250ml) 277 ml @ 125 mls/hr Q7H IV 01/26/17 14:00 02/04/17 09:59 01/26/17 13:22 125 MLS/HR Insulin Glargine (Lantus Solostar Pen) see protocol text BID SC 01/26/17 21:00 02/25/17 20:59 Insulin Aspart (novoLOG ASPART) SLIDING SCALE G... TODAY@0000,0400 [place] 01/27/17 00:00 01/27/17 04:01 Objective Vital Signs Date Time Temp Pulse Resp B/P Pulse Ox O2 Delivery O2 Flow Rate FiO2 01/26/17 16:00 Room Air 01/26/17 12:21 104 22 99 Room Air 01/26/17 12:13 Room Air 01/26/17 10:26 90 20 Room Air 01/26/17 08:00 37.3 119 18 95/58 100 Room Air 01/26/17 08:00 Room Air 01/26/17 06:01 37.7 79 18 121/77 100 Room Air 01/26/17 05:55 37.7 79 25 129/79 100 Room Air 01/26/17 04:51 92 Room Air 01/26/17 04:01 37.6 78 19 117/73 100 Room Air 01/26/17 03:01 37.8 87 24 121/75 100 Room Air 01/26/17 02:01 37.8 73 28 112/79 98 Room Air 01/26/17 01:01 38.1 82 24 114/64 96 Room Air 01/26/17 00:36 92 Room Air 01/26/17 00:01 38.2 88 24 119/77 100 Room Air 01/25/17 23:57 38.2 80 27 122/78 98 Room Air 01/25/17 22:00 37.9 87 27 108/74 94 Room Air 01/25/17 20:17 92 Room Air 01/25/17 19:36 37.5 96 29 107/67 98 Room Air 01/25/17 18:24 37.2 118 24 92 Room Air Physical Exam General Appearance: WD/WN, no apparent distress Eyes: PERRL, EOMI ENT: hearing grossly normal, pharynx normal Neck: supple, no adenopathy, thyroid normal Respiratory/Chest: chest non-tender, lungs clear, normal breath sounds, no respiratory distress Cardiovascular: regular rate, rhythm, no edema, no murmur Abdomen: normal bowel sounds, non tender, soft, no organomegaly Extremities: normal range of motion, non-tender Laboratory Results 01/26/17 05:53 Red Blood Count 2.74, Mean Corpuscular Volume 85.8, Mean Corpuscular Hemoglobin 29.2, Mean Corpuscular Hemoglobin Concent 34.0, Mean Platelet Volume 10.1, Neutrophils (%) (Auto) 81.3, Lymphocytes (%) (Auto) 10.2, Monocytes (%) (Auto) 7.1, Eosinophils (%) (Auto) 0.0, Basophils (%) (Auto) 0.1, Neutrophils # (Auto) 8.47, Lymphocytes # (Auto) 1.06, Monocytes # (Auto) 0.74, Eosinophils # (Auto) 0.00, Basophils # (Auto) 0.01 01/26/17 05:33 Test 01/26/17 05:33 01/26/17 05:53 01/26/17 16:43 Anion Gap 14.0 mmol/L (3-11) Est Creatinine Clear Calc Drug Dose 113.7 ml/min Estimated GFR () 130.1 Estimated GFR (Non- 112.3 BUN/Creatinine Ratio 7.9 (10-20) Calcium Level 6.7 mg/dl (8.5-10.1) Phosphorus Level 3.1 mg/dl (2.5-4.9) Magnesium Level 2.3 mg/dl (1.8-2.4) Total Bilirubin 0.2 mg/dl (0.2-1) Direct Bilirubin < 0.1 mg/dl (0-0.2) Aspartate Amino Transf (AST/SGOT) 9 U/L (15-37) Alanine Aminotransferase (ALT/SGPT) 14 U/L (12-78) Alkaline Phosphatase 40 U/L (45-117) C-Reactive Protein 8.24 mg/dl (0-0.29) Total Protein 6.1 gm/dl (6.4-8.2) Albumin 1.9 gm/dl (3.4-5.0) Beta-Hydroxybutyric Acid 0.49 mg/dL (0.2-2.81) Procalcitonin 2.61 ng/ml (0-0.5) Vancomycin Level Trough 20.4 mcg/ml (SEE COMMENT) White Blood Count 10.42 K/uL (4.8-10.8) Red Blood Count 2.74 M/uL (4.2-5.4) Hemoglobin 8.0 g/dL (12.0-16.0) Hematocrit 23.5 % (37-47) Mean Corpuscular Volume 85.8 fL (80-100) Mean Corpuscular Hemoglobin 29.2 pg (25-34) Mean Corpuscular Hemoglobin Concent 34.0 g/dl (32-36) Platelet Count 211 K/uL (130-400) Mean Platelet Volume 10.1 fL (7.4-10.4) Neutrophils (%) (Auto) 81.3 % Lymphocytes (%) (Auto) 10.2 % Monocytes (%) (Auto) 7.1 % Eosinophils (%) (Auto) 0.0 % Basophils (%) (Auto) 0.1 % Neutrophils # (Auto) 8.47 K/uL (1.4-6.5) Lymphocytes # (Auto) 1.06 K/uL (1.2-3.4) Monocytes # (Auto) 0.74 K/uL (0.11-0.59) Eosinophils # (Auto) 0.00 K/uL (0-0.5) Basophils # (Auto) 0.01 K/uL (0-0.2) RDW Standard Deviation 42.7 fL (36.4-46.3) RDW Coefficient of Variation 13.5 % (11.5-14.5) Immature Granulocyte % (Auto) 1.3 % Immature Granulocyte # (Auto) 0.14 K/uL (0.00-0.02) Nucleated RBC Absolute Count (auto) 0.03 K/uL (0-0) Nucleated Red Blood Cells % 0.2 % Red Blood Cell Morphology Unremarkable Bedside Glucose 178 mg/dl (70-90) Assessment and Plan 37 y/o female h/o anxiety presents w/ delirium 2/2 ?bacterial meningitis Delirium/obtunded, concern for meningitis - returned to baseline - Cx neg x 3 days - continue empiric management w/ ABx, AVx. Trend CBC daily. F/U Viral panel. Anxiety - h/o mood disorder per patient - recommend PO Ativan 0.5mg BID PRN Electrolyte disturbances - trend BMP daily, correct as needed.
[2017-01-26] MEDS ORDERED: INSULIN GLARGINE SOLOSTAR 100 UNITS/ML 3 ML PEN SC SCH (21:00)
[2017-01-26] MEDS ORDERED: ALTEPLASE, RECOMBINANT 1 MG/ML 2 ML VIAL IV ONE (21:15)
[2017-01-27] MEDS: ACETAMINOPHEN IV 100 ML IV SCH ×2 (00:18→09:05)
[2017-01-27] MEDS: ACYCLOVIR SOD INJ 550 MG in DEXTROSE 5% 100ML 100 ML IV SCH ×3 (02:10→18:00)
[2017-01-27] MEDS: AMPICILLIN IV 2,000 MG in SODIUM CHLORIDE 0.9% 100ML 100 ML IV SCH ×2 (02:49→09:00)
[2017-01-27] MEDS: INSULIN ASPART 100 UNITS/ML 3 ML PEN SC SCH ×6 (04:00→21:00)
[2017-01-27] MEDS: VANCOMYCIN INJ 1,350 MG in SODIUM CHLORIDE 0.9% 250ML 250 ML IV SCH (04:00)
[2017-01-27 04:25] VITALS: BP 120/72; PULSE 78; TEMP 36.5; O2SAT 97
[2017-01-27] MEDS: CEFTRIAXONE SOD INJ 2,000 MG in DEXTROSE 5% 50ML 50 ML IV SCH ×2 (05:00→16:39)
[2017-01-27 06:12] LABS: HEMATOCRIT 23.6 % (37-47); MEAN CELL VOLUME 87.1 fL (80-100); MEAN CORPUSCULAR HEMOGLOBIN 29.5 pg (25-34); MEAN CORPUSCULAR HGB CONC 33.9 g/dl (32-36); MEAN PLATELET VOLUME 10.3 fL (7.4-10.4); PLATELET COUNT 235 K/uL (130-400); RED BLOOD COUNT 2.71 M/uL (4.2-5.4)
[2017-01-27 06:42] LABS: ALT/SGPT 23 U/L (12-78); AST/SGOT 10 U/L (15-37); BLOOD UREA NITROGEN 9 mg/dl (7-18); BUN/CREATININE RATIO 16.5 (10-20); CALCIUM 7.2 mg/dl (8.5-10.1); CARBON DIOXIDE 26 mmol/L (21-32); CHLORIDE 117 mmol/L (98-107); CREATININE 0.53 mg/dl (0.60-1.20); GLUCOSE 89 mg/dl (70-99); MAGNESIUM 2.3 mg/dl (1.8-2.4); POTASSIUM 3.1 mmol/L (3.5-5.1); SODIUM 150 mmol/L (136-145)
[2017-01-27 06:47] LABS: ALKALINE PHOSPHATASE 36 U/L (45-117)
[2017-01-27 07:04] LABS: COMPLETE YES; LYMPH ABS # 3.13 K/uL (1.2-3.4); LYMPHOCYTE % 25.9 %; META ABS # 0.11 K/uL (0-0); METAMYELOCYTE % 0.9 %
[2017-01-27 07:58] VITALS: BP 113/75; PULSE 67; TEMP 36.6; O2SAT 97
[2017-01-27] MEDS: POTASSIUM CHLR 20 MEQ / WTR 20 MEQ in PREMIXED WATER 100 ML IV SCH ×2 (09:05→11:51)
[2017-01-27 10:10] VITALS: BP 113/75; PULSE 67; TEMP 36.6; O2SAT 97
[2017-01-27] MEDS ORDERED: VANCOMYCIN TROUGH SCH (10:30)
[2017-01-27] MEDS ORDERED: ACETAMINOPHEN IV 100 ML IV PRN (10:51)
[2017-01-27] MEDS: ENOXAPARIN 40 MG/0.4 ML SYR SQ SCH (11:01)
--- NOTE | 2017-01-27 11:16 | Pharmacy Progress Note ---
Glycemic Control: Progress Nt Date of Service January 27, 2017. Scope Glycemic Pharmacist consulted for glycemic control and to write orders per [facility] inpatient glycemic control protocol. Objective Accuchecks BSG (last 24hrs): Test 01/26/17 11:40 01/26/17 16:43 01/26/17 21:08 01/27/17 00:16 Bedside Glucose 185 mg/dl (70-90) 178 mg/dl (70-90) 175 mg/dl (70-90) 120 mg/dl (70-90) Test 01/27/17 04:24 01/27/17 05:46 01/27/17 06:14 Bedside Glucose 103 mg/dl (70-90) 108 mg/dl (70-90) Random Glucose 89 mg/dl (70-99) Laboratory Data (last 24hrs) HbA1c: Test 01/24/17 05:45 Hemoglobin A1c 5.3 % (4.5-5.6) Recent Pertinent Medications Outpatient Anti-diabetic Regimen: * N/A no previous history of DM, A1c normal The patient is currently receiving: * Basal insulin: Lantus 0-10 units SQ BID based on BSG * Correctional Insulin: Novolog Correction per scale ACHS Goal Range: Low 140 mg/dL - High 180 mg/dL Correction Factor: 30 mg/dL/unit * Prandial insulin: Per carb ratio of 1 unit per 10 grams CHO consumed Risk Factors for Insulin Resistance: * Steroids: -F-a-i-c-v-x-n-r-k-s-o-n-e- -1-2-m-g- -I-V- -Q-6-h-r-s- --> Discontinued * Infection * Diet Assessment & Plan ASSESSMENT: * See note from 01/25 for more background info, in short: 01/24 Risk factors for insulin resistance DXM 12mg IV Q6hrs Infection Dextrose IVF DXM 12mg IV Q6hrs Infection Dextrose IVF -D-X-M- -1-2-m-g- -I-V- -Q-6-h-r-s- Infection -Z-y-b-t-r-o-s-e- -I-V-F- Infection {being adequately treated} Condition stabilized and pt transferred out of ICU Insulin Orders Lantus 6 units in PM NovoLog Q6 CF 30 CR 20 Lantus 20 units in AM + 13 units in PM NovoLog Q6 CF 20 CR 7 Lantus 13 units SQ x 1 ~ 1300 for BSG > 180 NovoLog Q4 CF 30 CR 10 Need to empirically decrease Total daily insulin dose 7 units 6 units basal 1 units prandial/correctional 52 units 33 units basal 19 units prandial/correctional 25 units 13 units basal 12 units prandial/correctional BSGs 165, 124, 185, 187 195, 244, 192, 163, 191 176, 185, 178, 175, 120 103 , 89, 108 * Pt was receiving weight based SQ basal bolus insulin regimen for hyperglycemia secondary to severe stress/infection + steroid induced hyperglycemia * Infection being adequately treated * Pt condition improving * DXM d/c yesterday--> hyperglycemic effects diminished * Insulin regimen needs empirically reduced/decreased to prevent hypo * Hypernatremia resolving --> diluents for abx to be changed back to NSS {were in dextrose} Stopping dextrose IVF should improve sustained hyperglycemia as well. PLAN FOR INPATIENT GLYCEMIC CONTROL: Empirically reduce SQ basal bolus insulin regimen secondary to dxm & dextrose IV d/c. Titrate dosing to maintain AM fasting BSG 80-130mg/dl and post-prandial BSGs < 180mg/dl * Basal insulin * Stop, no longer needed, AM fasting BSG in normal range * Bolus Insulin * Decrease parameters * NovoLog per scale ACHS or Q6hrs while NPO * Goal Range: Low 110 mg/dL - High 140 mg/dL * Correction Factor: 40 mg/dL/unit * Stop Nutritional / Prandial insulin, no longer needed w/o steroids on board * Pharmacy will sign off of glycemic consult if glycemic control adequate with current orders x 24hrs. * Please note that the plan above was derived based on current level of insulin resistance and hospital stress. These recommendations are appropriate for inpatient admission only. Plan of care upon discharge will need to be reassessed to avoid potential outpatient hypo/hyperglycemia. Thank you.
--- NOTE | 2017-01-27 12:18 | Family Medicine Progress Note ---
Progress Note Date of Service January 27, 2017. Subjective Pt evaluation today including: conversation w/ patient, physical exam, chart review, lab review Pain: None currently, no neck pain Voiding: no voiding problems, machuca catheter in place Doing well at this time No issues overnight; no events on monitor No headaches, no neck stiffness, no photophobia Tolerating diet Feels slightly "wobbly" on feet but has not been ambulating much Constitutional: No chills, No fever, No sweats Eyes: No eye pain, No redness, No worsening of vision ENT: No hearing loss, No nasal symptoms, No sore throat Respiratory: No cough, No shortness of breath, No sputum, No wheezing Cardiovascular: No PND, No chest pain, No edema Abdomen: No constipation, No diarrhea, No nausea, No pain, No vomiting Musculoskeletal: No joint pain, No muscle pain, No swelling Female : No dysuria, No urinary frequency Neurologic: + weakness, No numbness/tingling, No vertigo Skin: No color change, No new/changing skin lesions, No rash Medications Current Inpatient Medications Medications (Trade) Dose Ordered Sig/Barney Route Start Time Stop Time Status Last Admin Dose Admin Ondansetron HCl (Zofran Inj) 4 mg Q6H PRN IV 01/23/17 20:00 02/22/17 19:59 Morphine Sulfate (MoRPHine SULFATE INJ) 2 mg Q2H PRN IV 01/23/17 20:00 02/06/17 19:59 Morphine Sulfate 4 mg 4 mg Q2H PRN IV 01/23/17 20:00 02/06/17 19:59 Ceftriaxone Sodium/Dextrose (Rocephin Inj/D5 50ml) 70 ml @ 100 mls/hr Q12H IV 01/24/17 05:00 02/03/17 04:59 01/27/17 05:00 100 MLS/HR Enoxaparin Sodium (Lovenox Inj) 40 mg Q24H SQ 01/25/17 12:00 02/24/17 11:59 01/26/17 12:15 40 MG Miscellaneous Information 1 ea 1 ea UD PRN N/A 01/24/17 11:45 02/23/17 11:44 Acyclovir Sodium/ Dextrose (Zovirax Inj/D5 100ml) 111 ml @ 110 mls/hr Q8H IV 01/24/17 18:00 02/03/17 01:59 01/27/17 09:00 110 MLS/HR Heparin Sodium (Porcine) (Heparin 10 Unit/ ml 5 ml Flush) 5 ml PRN PRN FLUSH 01/24/17 13:30 02/23/17 13:29 01/27/17 10:43 5 ML Levalbuterol (Xopenex 1.25MG/ 3ML Neb) 1.25 mg Q6R PRN INH 01/25/17 09:00 02/24/17 08:59 Insulin Aspart SLIDING SCALE G... ACHS SC 01/26/17 11:00 02/25/17 10:59 01/26/17 18:43 2 UNITS Potassium Chloride 20 meq/ Prmx 100 ml @ 50 mls/hr Q2H IV 01/27/17 09:00 01/27/17 12:59 01/27/17 11:51 50 MLS/HR Acetaminophen (Ofirmev Iv) 100 ml @ 400 mls/hr Q8H PRN IV 01/27/17 10:51 02/26/17 10:50 Acetaminophen (Tylenol Tab) 650 mg Q4H PRN PO 01/27/17 11:00 02/26/17 10:59 Objective Vital Signs Date Time Temp Pulse Resp B/P Pulse Ox O2 Delivery O2 Flow Rate FiO2 01/27/17 11:44 Room Air 01/27/17 10:10 36.6 67 17 97 2.0 01/27/17 08:00 Room Air 01/27/17 07:58 36.6 67 17 113/75 97 Room Air 01/27/17 04:25 36.5 78 17 120/72 97 Room Air 01/27/17 04:00 Room Air 01/27/17 00:02 Room Air 01/26/17 23:54 37.0 69 22 118/78 99 Room Air 01/26/17 20:00 Room Air 01/26/17 19:12 36.9 81 20 117/74 95 Room Air 01/26/17 16:00 Room Air 01/26/17 12:21 104 22 99 Room Air 01/26/17 12:13 Room Air Physical Exam General Appearance: WD/WN, no apparent distress Eyes: normal inspection, PERRL, EOMI ENT: hearing grossly normal, pharynx normal Neck: supple, no adenopathy, no JVD Respiratory/Chest: lungs clear, normal breath sounds, no respiratory distress, no accessory muscle use Cardiovascular: regular rate, rhythm, no gallop, no murmur Abdomen: normal bowel sounds, non tender, soft Extremities: non-tender, no pedal edema Neurologic/Psychiatric: alert, normal mood/affect, oriented x 3, + pertinent finding (patient does have speech impediment but she is currently at her baseline) Skin: normal color, warm/dry, no rash Lymphatic: no adenopathy Laboratory Results Last 24 Hours Test 01/26/17 16:43 01/26/17 21:08 01/27/17 00:16 01/27/17 04:24 Bedside Glucose 178 mg/dl 175 mg/dl 120 mg/dl 103 mg/dl Test 01/27/17 05:46 01/27/17 06:14 01/27/17 10:39 01/27/17 11:23 White Blood Count 12.10 K/uL Red Blood Count 2.71 M/uL Hemoglobin 8.0 g/dL Hematocrit 23.6 % Mean Corpuscular Volume 87.1 fL Mean Corpuscular Hemoglobin 29.5 pg Mean Corpuscular Hemoglobin Concent 33.9 g/dl Platelet Count 235 K/uL Mean Platelet Volume 10.3 fL RDW Standard Deviation 44.1 fL RDW Coefficient of Variation 13.7 % Nucleated RBC Absolute Count (auto) 0.05 K/uL Neutrophils % (Manual) 68.0 % Lymphocytes % (Manual) 25.9 % Monocytes % (Manual) 5.2 % Metamyelocytes % 0.9 % Nucleated Red Blood Cells % 0.4 % Neutrophils # (Manual) 8.23 K/uL Total Absolute Neutrophils 8.23 K/uL Lymphocytes # (Manual) 3.13 K/uL Total Absolute Lymphocytes 3.13 K/uL Monocytes # (Manual) 0.63 K/uL Metamyelocytes # 0.11 K/uL Red Blood Cell Morphology Unremarkable Sodium Level 150 mmol/L Potassium Level 3.1 mmol/L Chloride Level 117 mmol/L Carbon Dioxide Level 26 mmol/L Anion Gap 7.0 mmol/L Blood Urea Nitrogen 9 mg/dl Creatinine 0.53 mg/dl Est Creatinine Clear Calc Drug Dose 150.2 ml/min Estimated GFR () 142.6 Estimated GFR (Non- 123.0 BUN/Creatinine Ratio 16.5 Random Glucose 89 mg/dl Calcium Level 7.2 mg/dl Magnesium Level 2.3 mg/dl Total Bilirubin 0.2 mg/dl Direct Bilirubin < 0.1 mg/dl Aspartate Amino Transf (AST/SGOT) 10 U/L Alanine Aminotransferase (ALT/SGPT) 23 U/L Alkaline Phosphatase 36 U/L Total Protein 4.9 gm/dl Albumin 1.9 gm/dl Bedside Glucose 108 mg/dl 87 mg/dl Osmolality 292 mOsm/kg Vancomycin Level Trough 28.6 mcg/ml Assessment and Plan 37 year old female with resolving meningitis. CSF cultures and blood cultures negative to date. HSV serology pending. Clinically demonstrating marked improvement Our plan for her is as follows: Meningitis - Presumed bacterial given marked leukocytosis and low CSF glucose on admission , though has not grown anything from cultures - Altered mental status is improving - Currently on Rocephin, Vancomycin, Ampicillin, Acyclovir Discussed case with ID: Discontinue Ampicillin and Vancomycin Continue Acyclovir until HSV PCR is resulted Needs 21 day course: need to decide between MTU vs home infusions of Rocephin - Decadron discontinued Hypernatremia - Na 150 today; did show signs of improvement yesterday with normalized serum sodium - No evidence of encephalopathy related to electrolyte disturbance - Patient appears euvolemic clinically Consider Diabetes insipidus, check urine and serum osmolarity - Trend daily Hypokalemia - K 3.1 today - 40 mEq KCl IV via PICC line - Follow BMP Hyperglycemia - No dx of DM - HbA1c 5.3 - Likely 2/2 Decadron initially - Pharmacy consulted for glycemic management; SSI ordered Anemia - Hb stable at 8; was 11 at presentation - No evidence of hemolysis per peripheral smear - Like 2/2 acute BM suppression from illness - Monitor daily DVT prophylaxis - SCD - Lovenox Disposition - Transferred to med/surg - Needs OT/PT evaluation/recommendations - Expected to return home when ready for discharge, needs plan for outpatient Rocephin infusions Continued [facility] stay due to: multiple IV medications needed, other Discharge planning: home Reviewed: Pt Seen/Exam by Me History no neck pain headache mild. Constitutional: denies: fever Respiratory: negative: cough, short of breath Cardiovascular: denies chest pain General Appearance: no apparent distress Neck: supple Respiratory: lungs clear, no respiratory distress Cardiovascular: regular rate, rhythm Neurologic/Psychiatric: no motor/sensory deficits, alert, oriented x 3 Skin Characteristics: warm/dry Assessment/Plan I have reviewed the medical record and performed a history and physical examination of this patient today. I have discussed the case with Dr. Snow. The above note reflects my findings, conclusions, and recommendations.
[2017-01-27 15:10] VITALS: BP 107/73; PULSE 85; TEMP 36.8; O2SAT 97
[2017-01-27] MEDS: ACETAMINOPHEN 325 MG TAB PO PRN ×2 (16:37→23:47)
[2017-01-27] MEDS: MoRPHine SULFATE 4 MG/ML 1 ML CARP\\VIAL IV PRN (21:20)
[2017-01-27 22:28] LABS: HSV TYPE 1 DNA Not Detected (Not Detected); HSV TYPE 1&2 DNA SOURCE CSF; HSV TYPE 2 DNA Not Detected (Not Detected)
[2017-01-28] VITALS (9 sets, daily range): BP systolic 108–136; BP diastolic 61–82; PULSE 95–191; TEMP 37–39.5; O2SAT 93–99
[2017-01-28] MEDS: MoRPHine SULFATE 4 MG/ML 1 ML CARP\\VIAL IV PRN (00:21)
[2017-01-28] MEDS: ACYCLOVIR SOD INJ 550 MG in DEXTROSE 5% 100ML 100 ML IV SCH (02:05)
[2017-01-28] MEDS ORDERED: HYDROmorphone INJ 0.5 MG/0.5 ML SYR IV STA (04:50)
[2017-01-28] MEDS: CEFTRIAXONE SOD INJ 2,000 MG in DEXTROSE 5% 50ML 50 ML IV SCH ×2 (05:00→18:28)
[2017-01-28] MEDS ORDERED: HYDROmorphone INJ 1 MG/ML SYR IV STA (05:03)
[2017-01-28 05:34] LABS: HEMATOCRIT 26.1 % (37-47); MEAN CELL VOLUME 87.3 fL (80-100); MEAN CORPUSCULAR HEMOGLOBIN 29.1 pg (25-34); MEAN CORPUSCULAR HGB CONC 33.3 g/dl (32-36); MEAN PLATELET VOLUME 10.1 fL (7.4-10.4); PLATELET COUNT 276 K/uL (130-400); RED BLOOD COUNT 2.99 M/uL (4.2-5.4); WHITE BLOOD COUNT 16.06 K/uL (4.8-10.8)
[2017-01-28 06:00] LABS: BASO % 0.2 %; BASO ABS # 0.03 K/uL (0-0.2); COMPLETE YES; EOS % 1.7 %; LYMPH % 28.8 %; LYMPH ABS # 4.63 K/uL (1.2-3.4); MONO % 5.7 %; NEUT % 57.6 %; TOXIC GRANULATION 1+
[2017-01-28 06:06] LABS: ALKALINE PHOSPHATASE 45 U/L (45-117); ALT/SGPT 29 U/L (12-78); AST/SGOT 13 U/L (15-37); BLOOD UREA NITROGEN 6 mg/dl (7-18); BUN/CREATININE RATIO 10.3 (10-20); CALCIUM 7.6 mg/dl (8.5-10.1); CARBON DIOXIDE 29 mmol/L (21-32); CHLORIDE 108 mmol/L (98-107); CREATININE 0.57 mg/dl (0.60-1.20); GLUCOSE 77 mg/dl (70-99); POTASSIUM 3.7 mmol/L (3.5-5.1); SODIUM 142 mmol/L (136-145)
[2017-01-28] MEDS: INSULIN ASPART 100 UNITS/ML 3 ML PEN SC SCH ×4 (07:41→21:38)
[2017-01-28] MEDS ORDERED: AMPICILLIN PHARMACY CONSULT IN PROGRESS PRN (09:30)
[2017-01-28] MEDS ORDERED: VANCOMYCIN CONSULT ACTIVE PRN (09:30)
[2017-01-28 09:37] LABS: URINE APPEARANCE CLEAR (CLEAR); URINE BILIRUBIN NEG (NEG); URINE COLOR YELLOW; URINE EPITHELIAL CELL AUTO 0-5 /lpf (0-5); URINE NITRITE NEG (NEG); URINE SPECIFIC GRAVITY 1.006 (1.000-1.030); UROBILINOGEN NEG (NEG)
[2017-01-28 09:46] LABS: MANUAL MICROSCOPIC REQUIRED? NO; REVIEW REQ? NO
[2017-01-28] MEDS ORDERED: AMPICILLIN IV 2,000 MG in SODIUM CHLORIDE 0.9% 100ML 100 ML IV SCH (10:00)
--- NOTE | 2017-01-28 10:22 | Pharmacy Progress Note ---
Pharmacy Antibiotic Consult Date of Service: January 28, 2017. Pharmacy Dosing Scope Pharmacy is consulted to reinitiate Vancomycin IV dosing therapy, order appropriate labs and adjust drug dose/frequency. Subjective The patient is a 37 year old female admitted on January 23, 2017 at 19:51.35 with possible meningitis. Objective Height (Feet): 5 Height (Inches): 4.00 Weight (Kilograms): 77.500 Lab Results (24hrs): Item Value Date Time Vancomycin Level Trough 10.9 mcg/ml 01/25/17 0345 Vancomycin Level Trough 20.4 mcg/ml 01/26/17 0533 Vancomycin Level Trough 28.6 mcg/ml 01/27/17 1039 Test 01/27/17 10:39 01/27/17 12:30 01/27/17 20:57 01/28/17 00:00 Osmolality 292 mOsm/kg (280-300) Vancomycin Level Trough 28.6 mcg/ml (SEE COMMENT) Urine Osmolality 170 mOms/kg (500-800) Bedside Glucose 88 mg/dl (70-90) Urine Random Sodium 54 mEq/L Urine Random Potassium < 1.0 mEq/L Urine Random Chloride 53 mEq/L Test 01/28/17 04:55 01/28/17 07:11 01/28/17 08:45 01/28/17 09:10 White Blood Count 16.06 K/uL (4.8-10.8) Red Blood Count 2.99 M/uL (4.2-5.4) Hemoglobin 8.7 g/dL (12.0-16.0) Hematocrit 26.1 % (37-47) Mean Corpuscular Volume 87.3 fL (80-100) Mean Corpuscular Hemoglobin 29.1 pg (25-34) Mean Corpuscular Hemoglobin Concent 33.3 g/dl (32-36) Platelet Count 276 K/uL (130-400) Mean Platelet Volume 10.1 fL (7.4-10.4) Neutrophils (%) (Auto) 57.6 % Lymphocytes (%) (Auto) 28.8 % Monocytes (%) (Auto) 5.7 % Eosinophils (%) (Auto) 1.7 % Basophils (%) (Auto) 0.2 % Neutrophils # (Auto) 9.25 K/uL (1.4-6.5) Lymphocytes # (Auto) 4.63 K/uL (1.2-3.4) Monocytes # (Auto) 0.91 K/uL (0.11-0.59) Eosinophils # (Auto) 0.28 K/uL (0-0.5) Basophils # (Auto) 0.03 K/uL (0-0.2) RDW Standard Deviation 43.9 fL (36.4-46.3) RDW Coefficient of Variation 13.6 % (11.5-14.5) Immature Granulocyte % (Auto) 6.0 % Immature Granulocyte # (Auto) 0.96 K/uL (0.00-0.02) Nucleated RBC Absolute Count (auto) 0.04 K/uL (0-0) Nucleated Red Blood Cells % 0.2 % Toxic Granulation 1+ Sodium Level 142 mmol/L (136-145) Potassium Level 3.7 mmol/L (3.5-5.1) Chloride Level 108 mmol/L (98-107) Carbon Dioxide Level 29 mmol/L (21-32) Anion Gap 5.0 mmol/L (3-11) Blood Urea Nitrogen 6 mg/dl (7-18) Creatinine 0.57 mg/dl (0.60-1.20) Est Creatinine Clear Calc Drug Dose 138.8 ml/min Estimated GFR () 139.2 Estimated GFR (Non- 120.1 BUN/Creatinine Ratio 10.3 (10-20) Random Glucose 77 mg/dl (70-99) Calcium Level 7.6 mg/dl (8.5-10.1) Magnesium Level 2.0 mg/dl (1.8-2.4) Total Bilirubin 0.3 mg/dl (0.2-1) Direct Bilirubin < 0.1 mg/dl (0-0.2) Aspartate Amino Transf (AST/SGOT) 13 U/L (15-37) Alanine Aminotransferase (ALT/SGPT) 29 U/L (12-78) Alkaline Phosphatase 45 U/L (45-117) Total Protein 5.4 gm/dl (6.4-8.2) Albumin 2.3 gm/dl (3.4-5.0) Bedside Glucose 84 mg/dl (70-90) Lactic Acid Level 3.1 mmol/L (0.4-2.0) Procalcitonin 0.87 ng/ml (0-0.5) Urine Color YELLOW Urine Appearance CLEAR (CLEAR) Urine pH 6.0 (4.5-7.5) Urine Specific [place] 1.006 (1.000-1.030) Urine Protein NEG (NEG) Urine Glucose (UA) NEG (NEG) Urine Ketones NEG (NEG) Urine Occult Blood TRACE (NEG) Urine Nitrite NEG (NEG) Urine Bilirubin NEG (NEG) Urine Urobilinogen NEG (NEG) Urine Leukocyte Esterase NEG (NEG) Urine WBC (Auto) 0 /hpf (0-5) Urine RBC (Auto) 0-4 /hpf (0-4) Urine Hyaline Casts (Auto) 0 /lpf (0-5) Urine Epithelial Cells (Auto) 0-5 /lpf (0-5) Urine Bacteria (Auto) NEG (NEG) Micro Results: Item Value Date Time Blood Culture Received 01/28/17 0915 Blood Pending Blood Culture Received 01/28/17 0845 Blood Pending MRSA DNA Surveillance Screen - Final Complete 01/23/17 2130 Nasal Specimen Negative for MRSA by DNA Probe Gram Stain - Final Complete 01/23/17 1910 Cerebral Spinal Fluid Blood Culture - Preliminary Resulted 01/23/17 1815 Blood NO GROWTH TO DATE. Blood Culture - Preliminary Resulted 01/23/17 1725 Blood NO GROWTH TO DATE. 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 Coverage was narrowed on 01/27 due to negative cultures. Patient now febrile approximately 24 hours after deescalation thus will resume bacterial coverage with IV Vancomycin and IV Ampicillin. Of note, patient demonstrated Vancomycin dose accumulation with trough 28.6 mg/dL taken at time of next expected dosing interval at noon yesterday reflecting Vancomycin half-life of approximately 7 hours. Loading dose: Vancomycin 2000mg (~25mg/kg) IV X 1 dose then: Vancomycin 1250 mg (~16 mg/kg) IV every 8 hours. Goal peak level estimate: between 30 - 40 mcg/mL. Goal trough level estimate: between 15 - 20 mcg/mL. (desire trough at the high end of range (~20) due to meningitis indication Vancomycin trough level has been ordered for: January 30 prior to the noon dose Pharmacy will continue to follow and will adjust dose/frequency as necessary. Thank you
--- NOTE | 2017-01-28 10:38 | Neurology Consultation ---
Neurology Consultation Date of Consultation: January 28, 2017. Attending Physician: Marine Perry M.D. Primary Care Physician: No Doctor, Assigned Reason for Consultation: The patient is a 37-year-old who was asked to see at the request of Dr. Snow and [place], for neurologic consultation regarding unusual meningitis. History of Present Illness Source: patient, caregiver, hospital records This patient has no history of significant neurologic problems with no history of meningitis in the past. She does have a history of occasional mixed type headaches with migrainous and non-migrainous features and a history of "sinusitis". The patient has been on Paxil 30 mg a day with Xanax intermittently for depression. 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 The patient traveled to [facility] around [facility] and then went to [place] in November of this year for a conference indoors. She was not ill following this. The patient was in her usual state of health when she attended a conference at [facility] starting January 14 which was indoors in the [place] building. 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 Throughout that week she said that she had a "sinus" infection but described some pressure bitemporally with some possible fever, sore throat, ear fullness, and headache. These were mild and nonspecific symptoms I gathered that she continue to do her work. She claimed that by Friday, 17 January, she was feeling somewhat better. On January 18 and January 19, she was feeling ill again. This was worse by Friday the and she felt the headache and symptoms listed above. She made an appointment at [facility] but never made that appointment. She remembers January 21 but not the next 2 days. She was found in her apartment somewhat obtunded on January 23 and taken to the emergency room. She has no recall of this or being in the emergency room. She arrived with a temperature of 38.9, pulse 118, respiratory rate 24, blood pressure 120/73, and O2 saturation 95%. She was described as obtunded and could not follow one-step commands but did move spontaneously. Her white count was 35,000 with a left shift. CT scan of the head was unremarkable except for some sinusitis changes. Lumbar puncture was performed in the emergency room, but the opening pressure was not recorded. There were 4081 white cells with a left shift, protein of 741 , and glucose of 2. Gram stain showed no organisms but many white cells. She was put on vancomycin, Rocephin, ampicillin, and acyclovir as well as dexamethasone (for the first 48 hours). Preliminary concerns were for a bacterial meningitis. Blood and CSF cultures were unremarkable with no organisms seen. The patient did well clinically and was taken off antibiotics 24 hours ago. Last evening she spiked a temperature to 39 and had another temperature this morning. She was given Tylenol and she is currently afebrile at 37. This morning, the patient has a slight bifrontal headache of a pressure sensation without nausea, vomiting, photophobia. She has slight hypoacusis to loud noises and has a mild stiff neck. She has no weakness or numbness of the limbs. No dizziness or speech/mentation problems. She feels fairly well today. Past Medical/Surgical History Medical Problems: (1) Fever Status: Acute (2) Meningitis Status: Acute History of migraine headaches. Depression. History of a tongue "flap" surgery age 8 (something released under her tongue) and has no other surgical history. The patient has no history of heart disease, hypertension, diabetes, asthma, or ulcers. Family History Patient's mother, age 67, had a benign brain tumor removed. I do not know the type. Patient's father, age 68, has multiple sclerosis. Social History Patient has never smoked cigarettes. She has 1-2 drinks of alcohol per week at the most. She has no other unusual travel history. 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 She also has a job lined up at [employer]. 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[employer]) Allergies Coded Allergies: Penicillin V (Verified Adverse Reaction, Intermediate, VOMITTING, 01/23/17) Current Inpatient Medications Current Inpatient Medications Medications (Trade) Dose Ordered Sig/Barney Route Start Time Stop Time Status Last Admin Dose Admin Ondansetron HCl (Zofran Inj) 4 mg Q6H PRN IV 01/23/17 20:00 02/22/17 19:59 Morphine Sulfate (MoRPHine SULFATE INJ) 2 mg Q2H PRN IV 01/23/17 20:00 02/06/17 19:59 01/27/17 18:31 2 MG Morphine Sulfate 4 mg 4 mg Q2H PRN IV 01/23/17 20:00 02/06/17 19:59 01/28/17 00:21 4 MG Ceftriaxone Sodium/Dextrose (Rocephin Inj/D5 50ml) 70 ml @ 100 mls/hr Q12H IV 01/24/17 05:00 02/03/17 04:59 01/28/17 05:00 100 MLS/HR Enoxaparin Sodium (Lovenox Inj) 40 mg Q24H SQ 01/25/17 12:00 02/24/17 11:59 01/26/17 12:15 40 MG Miscellaneous Information (Consult Glycemic Management Pharmacy) 1 ea UD PRN N/A 01/24/17 11:45 02/23/17 11:44 Heparin Sodium (Porcine) (Heparin 10 Unit/ ml 5 ml Flush) 5 ml PRN PRN FLUSH 01/24/17 13:30 02/23/17 13:29 01/28/17 08:41 5 ML Levalbuterol (Xopenex 1.25MG/ 3ML Neb) 1.25 mg Q6R PRN INH 01/25/17 09:00 02/24/17 08:59 Insulin Aspart SLIDING SCALE G... ACHS SC 01/26/17 11:00 02/25/17 10:59 01/26/17 18:43 2 UNITS Acetaminophen (Ofirmev Iv) 100 ml @ 400 mls/hr Q8H PRN IV 01/27/17 10:51 02/26/17 10:50 01/28/17 07:59 400 MLS/HR Acetaminophen (Tylenol Tab) 650 mg Q4H PRN PO 01/27/17 11:00 02/26/17 10:59 01/27/17 23:47 650 MG Vancomycin HCl (Consult) 1 ea UD PRN N/A 01/28/17 09:30 02/27/17 09:29 Miscellaneous Information 1 ea 1 ea UD PRN N/A 01/28/17 09:30 02/27/17 09:29 Ampicillin Sodium 2000 mg/Sodium Chloride 100 ml @ 200 mls/hr Q6@0400,1000,1600,2200 IV 01/28/17 10:00 02/07/17 09:59 Vancomycin HCl 2000 mg/Sodium Chloride 540 ml @ 200 mls/hr TODAY@1100 IV 01/28/17 11:00 01/28/17 15:00 Vancomycin HCl/ Sodium Chloride (Vancomycin Inj/ Nss 250ml) 275 ml @ 125 mls/hr Q8@0400,1200,2000 IV 01/28/17 20:00 02/07/17 11:59 Review of Systems Constitutional: No fatigue, No weakness Eyes: No diplopia, No worsening of vision ENT: No hearing loss, No tinnitus Respiratory: No cough, No shortness of breath Cardiovascular: No chest pain, No palpitations Abdomen: No nausea, No pain Musculoskeletal: No joint pain, No muscle pain Genitourinary - Female: No dysuria, No urinary incontinence Neurologic: No balance problems, No memory loss, No numbness/tingling, No vertigo, No weakness Psychiatric: No anxiety, No depression symptoms Endocrine: No fatigue Hematologic / Lymphatic: No abnormal bleeding/bruising Integumentary: No rash Allergic / Immunologic: No hives Physical Exam Vital Signs (Past 24 Hrs): Date Time Temp Pulse Resp B/P Pulse Ox O2 Delivery O2 Flow Rate FiO2 01/28/17 09:11 37.0 01/28/17 08:00 93 Room Air 01/28/17 07:26 39.0 106 24 114/61 93 Room Air 01/28/17 00:59 37.8 01/28/17 00:00 38.3 100 24 129/82 99 Room Air 01/28/17 00:00 Room Air 01/27/17 16:00 Room Air 01/27/17 15:10 36.8 85 20 107/73 97 01/27/17 11:44 Room Air The patient is left handed. The patient is awake and alert. Speech is normal without aphasia or dysarthria. She has a little lisp and accent. Mentation and thought processes are intact with orientation and normal fund of knowledge. Mood and affect are normal and appropriate. Appearance and grooming are normal. The discs are sharp with positive venous pulsations. There are no exudates, hemorrhages, or blood vessel changes seen. Pupils are 4mm bilaterally and reactive to light. Extraocular eye muscles are intact without nystagmus. Visual acuity and visual almendarez seem normal grossly to confrontation. There are no deficits to sensation of the face bilaterally. Corneal reflexes are positive bilaterally. Facial strength and symmetry is normal bilaterally. Hearing seems intact grossly to voice and finger rub. Palate moves well without asymmetry. There is normal sternocleidomastoid and trapezius strength bilaterally. Tongue is midline with good strength bilaterally. Neck is with full range of motion without discomfort. Her neck seems supple to me. There are no cervical bruits. There are no cranial or ocular bruits. Heart is without murmur. Cervical, thoracic, and lumbar spine are nontender to palpation. Gait is normal. There is good are swing, turn, stance, and balance. With outstretched arms there is no drift. There are no resting, postural, or action tremors. There is no ataxia with [id number] testing. There is good facility in the hands. There are no abnormal involuntary movements noted. Motor strength is 5/5 diffusely in the arms bilaterally including deltoids, biceps, brachioradialis, wrist flexors and extensors, tribunal member, and intrinsic hand muscles. Motor strength is 5/5 diffusely in the legs bilaterally including hip flexors, quadriceps, hamstring, gastrocnemius, tibialis anterior, tibialis posterior, and peroneii muscles bilaterally. Toe extensors are normal and there is good bulk in the extensor digitorum brevis muscle bilaterally. The limbs have good tone without rigidity or spasticity, and there is no atrophy noted. Muscle bulk is normal, there is no tenderness, no myotonia noted to percussion, and no fasciculations seen. Sensory examination is intact to pin and touch throughout all four limbs. Reflexes are 2/4 in the biceps, triceps, brachioradialis, quadriceps, and Achilles tendons bilaterally. Toes are downgoing with plantar stimulation bilaterally. Peripheral pulses are present and of normal quality distally in all four limbs. There is no peripheral edema noted. Laboratory Results Past 24 Hours: 01/28/17 04:55 Red Blood Count 2.99, Mean Corpuscular Volume 87.3, Mean Corpuscular Hemoglobin 29.1, Mean Corpuscular Hemoglobin Concent 33.3, Mean Platelet Volume 10.1, Neutrophils (%) (Auto) 57.6, Lymphocytes (%) (Auto) 28.8, Monocytes (%) (Auto) 5.7, Eosinophils (%) (Auto) 1.7, Basophils (%) (Auto) 0.2, Neutrophils # (Auto) 9.25, Lymphocytes # (Auto) 4.63, Monocytes # (Auto) 0.91, Eosinophils # (Auto) 0.28, Basophils # (Auto) 0.03 01/28/17 04:55 Test 01/27/17 10:39 01/27/17 12:30 01/28/17 00:00 01/28/17 04:55 Osmolality 292 mOsm/kg (280-300) Vancomycin Level Trough 28.6 mcg/ml (SEE COMMENT) Urine Osmolality 170 mOms/kg (500-800) Urine Random Sodium 54 mEq/L Urine Random Potassium < 1.0 mEq/L Urine Random Chloride 53 mEq/L White Blood Count 16.06 K/uL (4.8-10.8) Red Blood Count 2.99 M/uL (4.2-5.4) Hemoglobin 8.7 g/dL (12.0-16.0) Hematocrit 26.1 % (37-47) Mean Corpuscular Volume 87.3 fL (80-100) Mean Corpuscular Hemoglobin 29.1 pg (25-34) Mean Corpuscular Hemoglobin Concent 33.3 g/dl (32-36) Platelet Count 276 K/uL (130-400) Mean Platelet Volume 10.1 fL (7.4-10.4) Neutrophils (%) (Auto) 57.6 % Lymphocytes (%) (Auto) 28.8 % Monocytes (%) (Auto) 5.7 % Eosinophils (%) (Auto) 1.7 % Basophils (%) (Auto) 0.2 % Neutrophils # (Auto) 9.25 K/uL (1.4-6.5) Lymphocytes # (Auto) 4.63 K/uL (1.2-3.4) Monocytes # (Auto) 0.91 K/uL (0.11-0.59) Eosinophils # (Auto) 0.28 K/uL (0-0.5) Basophils # (Auto) 0.03 K/uL (0-0.2) RDW Standard Deviation 43.9 fL (36.4-46.3) RDW Coefficient of Variation 13.6 % (11.5-14.5) Immature Granulocyte % (Auto) 6.0 % Immature Granulocyte # (Auto) 0.96 K/uL (0.00-0.02) Nucleated RBC Absolute Count (auto) 0.04 K/uL (0-0) Nucleated Red Blood Cells % 0.2 % Toxic Granulation 1+ Anion Gap 5.0 mmol/L (3-11) Est Creatinine Clear Calc Drug Dose 138.8 ml/min Estimated GFR () 139.2 Estimated GFR (Non- 120.1 BUN/Creatinine Ratio 10.3 (10-20) Calcium Level 7.6 mg/dl (8.5-10.1) Magnesium Level 2.0 mg/dl (1.8-2.4) Total Bilirubin 0.3 mg/dl (0.2-1) Direct Bilirubin < 0.1 mg/dl (0-0.2) Aspartate Amino Transf (AST/SGOT) 13 U/L (15-37) Alanine Aminotransferase (ALT/SGPT) 29 U/L (12-78) Alkaline Phosphatase 45 U/L (45-117) Total Protein 5.4 gm/dl (6.4-8.2) Albumin 2.3 gm/dl (3.4-5.0) Test 01/28/17 07:11 01/28/17 08:45 01/28/17 09:10 Bedside Glucose 84 mg/dl (70-90) Lactic Acid Level 3.1 mmol/L (0.4-2.0) Procalcitonin 0.87 ng/ml (0-0.5) Urine Color YELLOW Urine Appearance CLEAR (CLEAR) Urine pH 6.0 (4.5-7.5) Urine Specific [place] 1.006 (1.000-1.030) Urine Protein NEG (NEG) Urine Glucose (UA) NEG (NEG) Urine Ketones NEG (NEG) Urine Occult Blood TRACE (NEG) Urine Nitrite NEG (NEG) Urine Bilirubin NEG (NEG) Urine Urobilinogen NEG (NEG) Urine Leukocyte Esterase NEG (NEG) Urine WBC (Auto) 0 /hpf (0-5) Urine RBC (Auto) 0-4 /hpf (0-4) Urine Hyaline Casts (Auto) 0 /lpf (0-5) Urine Epithelial Cells (Auto) 0-5 /lpf (0-5) Urine Bacteria (Auto) NEG (NEG) Imaging HEAD CT NONCONTRAST CT DOSE: HISTORY: Mental status change OVERDOSE TECHNIQUE: Multiaxial CT images of the head were performed without the use of intravenous contrast. Comparison: None. Findings: Moderate mucosal thickening of the bulk of the right maxillary ethmoid and sphenoid sinuses The calvarium and skull base are intact. The ventricles and sulci are within normal limits. There is no mass, hematoma, midline shift, or acute infarct. Impression: No acute intracranial abnormality. Sinusitis Electronically signed by: Henry Emanuel M.D. 01/23/2017 6:11 PM Dictated Date/Time: 01/23/2017 6:09 PM Impression 1. Acute illness consistent with meningitis with abnormal LP. Patient had markedly elevated white count peripherally with left shift as well as greater than 4000 white cells on CSF with a left shift. CSF glucose was markedly low at 2 and protein was quite elevated at 741. All of this would tend to point to a bacterial meningitis. However, Gram stain was negative for organisms and cultures did not grow any bacteria. An acute viral infection could create an elevated white count and left shift, but I have never seen a white count or protein that high in a viral illness, as well as that low of a glucose. An unusual fungus or TB presentation cannot be excluded, however, I've never seen CSF parameters such as this patient has with those diagnoses. Neurosyphilis might be able to produce a CSF such as this patient has, although it is easily treated with the antibiotics she has received. Lyme antibody titers and HSV titers were negative. Patient did have some sinusitis seen on CT scan at admission. Clinically, the patient is back to baseline with no neurologic deficits, meningeal signs, or encephalopathy. 2. History of depression - stable on Paxil Plan 1. MRI of the brain with and without contrast with attention to sinuses. 2. I'm not sure why the patient spiked a temperature last night and this morning and if is even related to the fact that the antibiotics were discontinued 24 hours ago. Nevertheless, she probably should have some antibiotics for 7-10 days. I will leave the exact medications to Dr. Tyler. 3. There is no indication for steroids at this time. 4. There is no indication for acyclovir at this time. 5. Increase activity as able. 6. I see no indication for repeating a lumbar puncture at this time unless CSF as needed for specific antibodies that the infectious disease specialist desires. I spoke with Dr. Perry and Dr. Snow regarding this case including diagnoses and treatment options.
[2017-01-28] MEDS ORDERED: VANCOMYCIN INJ 2,000 MG in SODIUM CHLORIDE 0.9% 500ML 500 ML IV SCH (11:00)
[2017-01-28] MEDS: AMPICILLIN IV 2,000 MG in SODIUM CHLOR 0.9% AD-VAN 100ML 100 ML IV SCH ×3 (11:02→22:07)
[2017-01-28] MEDS: ENOXAPARIN 40 MG/0.4 ML SYR SQ SCH (11:07)
--- NOTE | 2017-01-28 11:23 | Pharmacy Progress Note ---
Pharmacy Glycemic Sign Off Nt Date of Service January 28, 2017. Assessment & Plan ASSESSMENT: * Pharmacy was consulted by Dr Ovalle on 01/24/17 for glycemic control and to write orders per [facility] inpatient glycemic control protocol. * Major changes made by pharmacy to antidiabetic regimen include: * Ms Bates required insulin upon admission secondary to acuity of illness. She is not requiring insulin at this time, nor does she use insulin as an outpatient. * Do not anticipate further changes in patient status that would quickly deteriorate glycemic control (i.e. patient to be NPO for upcoming procedure, steroids tapering, starting tube feedings, etc). PLAN FOR INPATIENT GLYCEMIC CONTROL: No changes needed to current regimen. * Forgo basal insulin * Continue NovoLog per scale ACHS/Q6hrs while NPO * Goal range = 110 - 140 mg/dl * CF = 40 mg/dl/unit * CR = 1 unit for ever ---- g CHO consumed * A1c added to discharge instructions to be communicated to PCP. * Pharmacy is signing off of glycemic consult and will no longer be making adjustments to inpatient regimen. Please feel free to re-consult if needed. Thank you. DISCHARGE RECOMMENDATIONS: * A1c 5.3 % on 01/24/17 * not indicative of diabetes.
--- NOTE | 2017-01-28 14:26 | Family Medicine Progress Note ---
Progress Note Date of Service January 28, 2017. Subjective Pt evaluation today including: conversation w/ patient, physical exam, chart review, lab review Pain: Headache overnight Voiding: no voiding problems, no incontinence Headache early this morning; 04/10, Tylenol helped as did a dose of Dilaudid ordered by bret Rosenbaum currently 01/08, feels some neck stiffness, no photophobia. Temp 38.3 and 39 since midnight Patient notes that otherwise she has no complaints Constitutional: + fever, No chills, No sweats Eyes: No eye pain, No redness, No worsening of vision ENT: No hearing loss, No nasal symptoms, No sore throat Respiratory: No cough, No dyspnea on exertion, No shortness of breath, No sputum Cardiovascular: No chest pain, No claudication, No palpitations Abdomen: No constipation, No diarrhea, No nausea, No pain, No vomiting Musculoskeletal: + problem reported (neck stiffness) Female : No dysuria, No urinary frequency Neurologic: No numbness/tingling, No vertigo, No weakness Endo: No excessive thirst, No excessive urination, No fatigue Skin: No color change, No new/changing skin lesions, No rash Medications Current Inpatient Medications Medications (Trade) Dose Ordered Sig/Barney Route Start Time Stop Time Status Last Admin Dose Admin Ondansetron HCl (Zofran Inj) 4 mg Q6H PRN IV 01/23/17 20:00 02/22/17 19:59 Morphine Sulfate (MoRPHine SULFATE INJ) 2 mg Q2H PRN IV 01/23/17 20:00 02/06/17 19:59 01/27/17 18:31 2 MG Morphine Sulfate 4 mg 4 mg Q2H PRN IV 01/23/17 20:00 02/06/17 19:59 01/28/17 00:21 4 MG Ceftriaxone Sodium/Dextrose (Rocephin Inj/D5 50ml) 70 ml @ 100 mls/hr Q12H IV 01/24/17 05:00 02/03/17 04:59 01/28/17 05:00 100 MLS/HR Enoxaparin Sodium (Lovenox Inj) 40 mg Q24H SQ 01/25/17 12:00 02/24/17 11:59 01/26/17 12:15 40 MG Heparin Sodium (Porcine) (Heparin 10 Unit/ ml 5 ml Flush) 5 ml PRN PRN FLUSH 01/24/17 13:30 02/23/17 13:29 01/28/17 11:42 5 ML Levalbuterol (Xopenex 1.25MG/ 3ML Neb) 1.25 mg Q6R PRN INH 01/25/17 09:00 02/24/17 08:59 Insulin Aspart SLIDING SCALE G... ACHS SC 01/26/17 11:00 02/25/17 10:59 01/26/17 18:43 2 UNITS Acetaminophen (Ofirmev Iv) 100 ml @ 400 mls/hr Q8H PRN IV 01/27/17 10:51 02/26/17 10:50 01/28/17 07:59 400 MLS/HR Acetaminophen (Tylenol Tab) 650 mg Q4H PRN PO 01/27/17 11:00 02/26/17 10:59 01/27/17 23:47 650 MG Vancomycin HCl (Consult) 1 ea UD PRN N/A 01/28/17 09:30 02/27/17 09:29 Miscellaneous Information 1 ea 1 ea UD PRN N/A 01/28/17 09:30 02/27/17 09:29 Ampicillin Sodium 2000 mg/Sodium Chloride 100 ml @ 200 mls/hr Q6@0400,1000,1600,2200 IV 01/28/17 10:00 02/07/17 09:59 01/28/17 11:02 200 MLS/HR Vancomycin HCl 2000 mg/Sodium Chloride 540 ml @ 200 mls/hr TODAY@1100 IV 01/28/17 11:00 01/28/17 15:00 01/28/17 11:06 200 MLS/HR Vancomycin HCl/ Sodium Chloride (Vancomycin Inj/ Nss 250ml) 275 ml @ 125 mls/hr Q8@0400,1200,2000 IV 01/28/17 20:00 02/07/17 11:59 Objective Vital Signs Date Time Temp Pulse Resp B/P Pulse Ox O2 Delivery O2 Flow Rate FiO2 01/28/17 09:11 37.0 01/28/17 08:00 93 Room Air 01/28/17 07:26 39.0 106 24 114/61 93 Room Air 01/28/17 00:59 37.8 01/28/17 00:00 38.3 100 24 129/82 99 Room Air 01/28/17 00:00 Room Air 01/27/17 16:00 Room Air 01/27/17 15:10 36.8 85 20 107/73 97 Physical Exam General Appearance: WD/WN, no apparent distress Eyes: normal inspection, EOMI ENT: hearing grossly normal, TMs normal, pharynx normal Neck: supple, no adenopathy, no JVD Respiratory/Chest: lungs clear, no respiratory distress Cardiovascular: regular rate, rhythm, no edema, no murmur Abdomen: normal bowel sounds, non tender, soft Extremities: non-tender, no pedal edema, + pertinent finding ( good range of motion in neck; negative Kernig's Sign) Neurologic/Psychiatric: alert, normal mood/affect, oriented x 3 Skin: normal color, warm/dry, no rash Laboratory Results Last 24 Hours Test 01/27/17 16:10 01/27/17 20:57 01/28/17 00:00 01/28/17 04:55 Bedside Glucose 97 mg/dl 88 mg/dl Urine Random Sodium 54 mEq/L Urine Random Potassium < 1.0 mEq/L Urine Random Chloride 53 mEq/L White Blood Count 16.06 K/uL Red Blood Count 2.99 M/uL Hemoglobin 8.7 g/dL Hematocrit 26.1 % Mean Corpuscular Volume 87.3 fL Mean Corpuscular Hemoglobin 29.1 pg Mean Corpuscular Hemoglobin Concent 33.3 g/dl Platelet Count 276 K/uL Mean Platelet Volume 10.1 fL Neutrophils (%) (Auto) 57.6 % Lymphocytes (%) (Auto) 28.8 % Monocytes (%) (Auto) 5.7 % Eosinophils (%) (Auto) 1.7 % Basophils (%) (Auto) 0.2 % Neutrophils # (Auto) 9.25 K/uL Lymphocytes # (Auto) 4.63 K/uL Monocytes # (Auto) 0.91 K/uL Eosinophils # (Auto) 0.28 K/uL Basophils # (Auto) 0.03 K/uL RDW Standard Deviation 43.9 fL RDW Coefficient of Variation 13.6 % Immature Granulocyte % (Auto) 6.0 % Immature Granulocyte # (Auto) 0.96 K/uL Nucleated RBC Absolute Count (auto) 0.04 K/uL Nucleated Red Blood Cells % 0.2 % Toxic Granulation 1+ Sodium Level 142 mmol/L Potassium Level 3.7 mmol/L Chloride Level 108 mmol/L Carbon Dioxide Level 29 mmol/L Anion Gap 5.0 mmol/L Blood Urea Nitrogen 6 mg/dl Creatinine 0.57 mg/dl Est Creatinine Clear Calc Drug Dose 138.8 ml/min Estimated GFR () 139.2 Estimated GFR (Non- 120.1 BUN/Creatinine Ratio 10.3 Random Glucose 77 mg/dl Calcium Level 7.6 mg/dl Magnesium Level 2.0 mg/dl Total Bilirubin 0.3 mg/dl Direct Bilirubin < 0.1 mg/dl Aspartate Amino Transf (AST/SGOT) 13 U/L Alanine Aminotransferase (ALT/SGPT) 29 U/L Alkaline Phosphatase 45 U/L Total Protein 5.4 gm/dl Albumin 2.3 gm/dl Test 01/28/17 07:11 01/28/17 08:45 01/28/17 09:10 01/28/17 11:07 Bedside Glucose 84 mg/dl 113 mg/dl Lactic Acid Level 3.1 mmol/L Procalcitonin 0.87 ng/ml Urine Color YELLOW Urine Appearance CLEAR Urine pH 6.0 Urine Specific [place] 1.006 Urine Protein NEG Urine Glucose (UA) NEG Urine Ketones NEG Urine Occult Blood TRACE Urine Nitrite NEG Urine Bilirubin NEG Urine Urobilinogen NEG Urine Leukocyte Esterase NEG Urine WBC (Auto) 0 /hpf Urine RBC (Auto) 0-4 /hpf Urine Hyaline Casts (Auto) 0 /lpf Urine Epithelial Cells (Auto) 0-5 /lpf Urine Bacteria (Auto) NEG Assessment and Plan 37 year old female with meningitis. Patient had de-escalation of antibiotics yesterday and was on Rocephin only. However, this morning, she has had recurrence of fevers, and headache/neck pain overnight. There is concern at this time ongoing meningitis refractory to the IV Rocephin. Our plan for her is as follows: Meningitis - Presumed bacterial given marked leukocytosis and low CSF glucose on admission Negative culture so far and negative gram stain - Seemed to be improving so de-escalated antibiotics yesterday to Rocephin only - Had recurrence of fevers this morning with headache and neck stiffness WBC steadily increasing over 48 hours; went from 8 to 16 Repeat blood cultures drawn; pending Lactate elevated at 3.1; procalcitonin elevated at 0.87; repeat lactate this afternoon - Discussed with ID Have re-broadened coverage to include Rocephin, Vancomycin and Ampicillin - HSV negative; Acyclovir discontinued - Neurology consulted; recommendations appreciated MRI combo pending Will hold off on repeat lumbar puncture No indication to re-start Decadron Hypernatremia - Na normalized today to 145 - Trend Daily Hypokalemia - K 3.7 today; normalized after repletion yesterday - Follow BMP Hyperglycemia - No dx of DM - HbA1c 5.3 - Likely 2/2 Decadron initially - Patient has SSI ordered Anemia - Hb improved slightly today 8.7; was 11 at presentation - No evidence of hemolysis per peripheral smear - Like 2/2 acute BM suppression from illness - Monitor daily DVT prophylaxis - SCD - Lovenox Disposition - Med/Surg - Remains in hospital for continued evaluation of meningitis Continued [facility] stay due to: abnormal vital signs, multiple IV medications needed Discharge planning: home Reviewed: Pt Seen/Exam by Me History had fever again but otherwise feeling much better no headache now Respiratory: negative: cough, short of breath General Appearance: no apparent distress Ears, Nose, Throat: normal ENT inspection Neck: full range of motion, supple Respiratory: lungs clear, no respiratory distress Cardiovascular: regular rate, rhythm Neurologic/Psychiatric: no motor/sensory deficits, alert, oriented x 3 Skin Characteristics: warm/dry Assessment/Plan I have reviewed the medical record and performed a history and physical examination of this patient today. I have discussed the case with Dr. Snow. The above note reflects my findings, conclusions, and recommendations.
[2017-01-28] MEDS: ACETAMINOPHEN 325 MG TAB PO PRN ×2 (15:07→23:14)
--- NOTE | 2017-01-28 15:57 | Infectious Disease Progress Nt ---
Progress Note Date of Service January 28, 2017. 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 After initial improvement, ampicillin and vancomycin discontinued, but patient again with fever and worsening headache. Antibiotics restarted. Seen by Neurology who agree with MRI. No other new specific complaints. All Other Systems: Reviewed and Negative Medications Current Inpatient Medications Medications (Trade) Dose Ordered Sig/Barney Route Start Time Stop Time Status Last Admin Dose Admin Ondansetron HCl (Zofran Inj) 4 mg Q6H PRN IV 01/23/17 20:00 02/22/17 19:59 Morphine Sulfate (MoRPHine SULFATE INJ) 2 mg Q2H PRN IV 01/23/17 20:00 02/06/17 19:59 01/27/17 18:31 2 MG Morphine Sulfate 4 mg 4 mg Q2H PRN IV 01/23/17 20:00 02/06/17 19:59 01/28/17 00:21 4 MG Ceftriaxone Sodium/Dextrose (Rocephin Inj/D5 50ml) 70 ml @ 100 mls/hr Q12H IV 01/24/17 05:00 02/03/17 04:59 01/28/17 05:00 100 MLS/HR Enoxaparin Sodium (Lovenox Inj) 40 mg Q24H SQ 01/25/17 12:00 02/24/17 11:59 01/26/17 12:15 40 MG Heparin Sodium (Porcine) (Heparin 10 Unit/ ml 5 ml Flush) 5 ml PRN PRN FLUSH 01/24/17 13:30 02/23/17 13:29 01/28/17 11:42 5 ML Levalbuterol (Xopenex 1.25MG/ 3ML Neb) 1.25 mg Q6R PRN INH 01/25/17 09:00 02/24/17 08:59 Insulin Aspart SLIDING SCALE G... ACHS SC 01/26/17 11:00 02/25/17 10:59 01/26/17 18:43 2 UNITS Acetaminophen (Ofirmev Iv) 100 ml @ 400 mls/hr Q8H PRN IV 01/27/17 10:51 02/26/17 10:50 01/28/17 07:59 400 MLS/HR Acetaminophen (Tylenol Tab) 650 mg Q4H PRN PO 01/27/17 11:00 02/26/17 10:59 01/28/17 15:07 650 MG Vancomycin HCl (Consult) 1 ea UD PRN N/A 01/28/17 09:30 02/27/17 09:29 Miscellaneous Information 1 ea 1 ea UD PRN N/A 01/28/17 09:30 02/27/17 09:29 Ampicillin Sodium 2000 mg/Sodium Chloride 100 ml @ 200 mls/hr Q6@0400,1000,1600,2200 IV 01/28/17 10:00 02/07/17 09:59 01/28/17 11:02 200 MLS/HR Vancomycin HCl/ Sodium Chloride (Vancomycin Inj/ Nss 250ml) 275 ml @ 125 mls/hr Q8@0400,1200,2000 IV 01/28/17 20:00 02/07/17 11:59 Objective Vital Signs Date Time Temp Pulse Resp B/P Pulse Ox O2 Delivery O2 Flow Rate FiO2 01/28/17 09:11 37.0 01/28/17 08:00 93 Room Air 01/28/17 07:26 39.0 106 24 114/61 93 Room Air 01/28/17 00:59 37.8 01/28/17 00:00 38.3 100 24 129/82 99 Room Air 01/28/17 00:00 Room Air 01/27/17 16:00 Room Air Physical Exam General Appearance: WD/WN, no apparent distress Eyes: normal inspection, sclerae normal ENT: normal ENT inspection, pharynx normal Neck: supple, no adenopathy, trachea midline Respiratory/Chest: chest non-tender, lungs clear, normal breath sounds, no respiratory distress Cardiovascular: regular rate, rhythm, no gallop, no murmur Abdomen: normal bowel sounds, non tender, soft, no organomegaly Extremities: non-tender, no pedal edema, no calf tenderness Neurologic/Psychiatric: alert, oriented x 3 Skin: normal color, warm/dry, no rash Lymphatic: no adenopathy Laboratory Results Date/Time Source Procedure Growth Status 01/28/17 09:15 Blood Blood Culture Pending Received 01/28/17 08:45 Blood Blood Culture Pending Received Last 24 Hours Test 01/27/17 16:10 01/27/17 20:57 01/28/17 00:00 01/28/17 04:55 Bedside Glucose 97 mg/dl 88 mg/dl Urine Random Sodium 54 mEq/L Urine Random Potassium < 1.0 mEq/L Urine Random Chloride 53 mEq/L White Blood Count 16.06 K/uL Red Blood Count 2.99 M/uL Hemoglobin 8.7 g/dL Hematocrit 26.1 % Mean Corpuscular Volume 87.3 fL Mean Corpuscular Hemoglobin 29.1 pg Mean Corpuscular Hemoglobin Concent 33.3 g/dl Platelet Count 276 K/uL Mean Platelet Volume 10.1 fL Neutrophils (%) (Auto) 57.6 % Lymphocytes (%) (Auto) 28.8 % Monocytes (%) (Auto) 5.7 % Eosinophils (%) (Auto) 1.7 % Basophils (%) (Auto) 0.2 % Neutrophils # (Auto) 9.25 K/uL Lymphocytes # (Auto) 4.63 K/uL Monocytes # (Auto) 0.91 K/uL Eosinophils # (Auto) 0.28 K/uL Basophils # (Auto) 0.03 K/uL RDW Standard Deviation 43.9 fL RDW Coefficient of Variation 13.6 % Immature Granulocyte % (Auto) 6.0 % Immature Granulocyte # (Auto) 0.96 K/uL Nucleated RBC Absolute Count (auto) 0.04 K/uL Nucleated Red Blood Cells % 0.2 % Toxic Granulation 1+ Sodium Level 142 mmol/L Potassium Level 3.7 mmol/L Chloride Level 108 mmol/L Carbon Dioxide Level 29 mmol/L Anion Gap 5.0 mmol/L Blood Urea Nitrogen 6 mg/dl Creatinine 0.57 mg/dl Est Creatinine Clear Calc Drug Dose 138.8 ml/min Estimated GFR () 139.2 Estimated GFR (Non- 120.1 BUN/Creatinine Ratio 10.3 Random Glucose 77 mg/dl Calcium Level 7.6 mg/dl Magnesium Level 2.0 mg/dl Total Bilirubin 0.3 mg/dl Direct Bilirubin < 0.1 mg/dl Aspartate Amino Transf (AST/SGOT) 13 U/L Alanine Aminotransferase (ALT/SGPT) 29 U/L Alkaline Phosphatase 45 U/L Total Protein 5.4 gm/dl Albumin 2.3 gm/dl Test 01/28/17 07:11 5/30/17 08:45 01/28/17 09:10 01/28/17 11:07 Bedside Glucose 84 mg/dl 113 mg/dl Lactic Acid Level 3.1 mmol/L Procalcitonin 0.87 ng/ml Urine Color YELLOW Urine Appearance CLEAR Urine pH 6.0 Urine Specific [place] 1.006 Urine Protein NEG Urine Glucose (UA) NEG Urine Ketones NEG Urine Occult Blood TRACE Urine Nitrite NEG Urine Bilirubin NEG Urine Urobilinogen NEG Urine Leukocyte Esterase NEG Urine WBC (Auto) 0 /hpf Urine RBC (Auto) 0-4 /hpf Urine Hyaline Casts (Auto) 0 /lpf Urine Epithelial Cells (Auto) 0-5 /lpf Urine Bacteria (Auto) NEG Test 01/28/17 14:42 Lactic Acid Level 0.7 mmol/L Assessment and Plan (1) Meningitis Status: Acute (2) Altered mental status (3) Anxiety (4) Sinusitis Status: Acute 37-year-old female with severe headache and neck stiffness with CSF parameters consistent with bacterial meningitis, but all cultures are negative, HSV PCR also negative. Not clear why patient had recurrent fever with short discontinuation of antibiotics. However, pending further workup and MRI, would continue patient on current antibiotic therapy. Will likely need in the range of 10 days of therapy. Will discuss with all involved.
[2017-01-28] MEDS ORDERED: GADAVIST IV PRN (17:00)
--- NOTE | 2017-01-28 17:45 | DIAGNOSTIC IMAGING REPORT ---
MRI OF THE BRAIN COMBO CLINICAL HISTORY: Refractory meningitis. COMPARISON STUDY: CT of the brain dated 01/23/2017. TECHNIQUE: MRI of the brain was performed utilizing various T1 and T2-weighted sequences in the axial, sagittal, and coronal planes. Contrast-enhanced sequences were acquired following the administration of 7.5 cc of Gadavist. FINDINGS: Brain parenchyma: There is subtle and nonspecific mildly increased FLAIR signal seen throughout the periventricular white matter. Additionally, there is subtle abnormal enhancement identified involving the lining of the occipital horns of both lateral ventricles. This is best seen on coronal postcontrast image #19. No intraventricular debris is identified. There is no intracranial fluid collection seen. A focal 6 mm T2 hyperintense lesion adjacent to the left lateral ventricle seen on axial image #13, and the appearance suggests a remote insult. There is no hemorrhage or mass effect. There is no restricted diffusion typical for acute ischemia. No enhancing mass lesion is identified on the postcontrast images. There is no leptomeningeal or pachymeningeal enhancement. Seth-white matter differentiation is preserved. No extra-axial fluid collection is seen. The cerebellar tonsils are normal in configuration. Ventricles, sulci, and cisterns: Normal in configuration. See above. Pituitary and sella: Unremarkable. Intracranial vasculature: Normal flow voids are maintained at the skull base. Orbits: The bony orbits are grossly intact. Orbital contents are normal in appearance. Sinuses and mastoids: There is trace mucosal thickening and fluid seen in the right maxillary antrum. There is subtotal opacification of the right sphenoid sinus and the anterior right ethmoid sinuses. The remaining paranasal sinuses are clear. There is a small right mastoid effusion. Calvarium: Unremarkable. Cervical cord: Partially visualized cervical spinal cord is normal in morphology and signal intensity. IMPRESSION: 1. Findings suggest a mild and nonspecific cerebritis/ventriculitis. Clinical correlation will be essential. 2. There is no leptomeningeal/pachymeningeal enhancement. No intraventricular debris is identified. No intracranial fluid collection is seen. 3. There is no hemorrhage, mass effect, or evidence of acute ischemia. Electronically signed by: Miguel Ta M.D. 01/28/2017 5:43 PM Dictated Date/Time: 01/28/2017 5:18 PM
[2017-01-28] MEDS: VANCOMYCIN INJ 1,250 MG in SODIUM CHLORIDE 0.9% 250ML 250 ML IV SCH (19:51)
[2017-01-29] VITALS (7 sets, daily range): BP systolic 97–116; BP diastolic 56–75; PULSE 88–107; TEMP 37–38.3; O2SAT 92–96
[2017-01-29] MEDS: AMPICILLIN IV 2,000 MG in SODIUM CHLOR 0.9% AD-VAN 100ML 100 ML IV SCH ×4 (03:46→22:34)
[2017-01-29] MEDS: VANCOMYCIN INJ 1,250 MG in SODIUM CHLORIDE 0.9% 250ML 250 ML IV SCH ×3 (03:46→19:38)
[2017-01-29] MEDS: CEFTRIAXONE SOD INJ 2,000 MG in DEXTROSE 5% 50ML 50 ML IV SCH ×2 (04:39→16:35)
[2017-01-29 05:50] LABS: HEMATOCRIT 28.4 % (37-47); MEAN CELL VOLUME 87.7 fL (80-100); MEAN CORPUSCULAR HEMOGLOBIN 28.7 pg (25-34); MEAN CORPUSCULAR HGB CONC 32.7 g/dl (32-36); MEAN PLATELET VOLUME 9.8 fL (7.4-10.4); PLATELET COUNT 316 K/uL (130-400); RED BLOOD COUNT 3.24 M/uL (4.2-5.4); WHITE BLOOD COUNT 14.72 K/uL (4.8-10.8)
[2017-01-29 06:22] LABS: BASO % 0.3 %; BASO ABS # 0.05 K/uL (0-0.2); COMPLETE YES; EOS % 3.9 %; IG% 8.2 %; LYMPH % 25.5 %; LYMPH ABS # 3.76 K/uL (1.2-3.4); MONO % 5.7 %; NEUT % 56.4 %
[2017-01-29 06:24] LABS: BUN/CREATININE RATIO 12.9 (10-20); CALCIUM 7.8 mg/dl (8.5-10.1); CREATININE 0.53 mg/dl (0.60-1.20); MAGNESIUM 2.4 mg/dl (1.8-2.4)
[2017-01-29 06:27] LABS: ALB/GLOB RATIO 0.7 (0.9-2); PHOSPHORUS 3.4 mg/dl (2.5-4.9)
--- NOTE | 2017-01-29 08:20 | Neurology Progress Notes ---
Neurology Progress Note Date of Service January 29, 2017. Subjective Patient has no complaint of headache although still has a little bit of stiff neck. She is not dizzy, has no confusion or speech problems. Her arms and legs have no new weakness or numbness. She has no incontinence of urine. Laboratory studies revealed a white count of 14.7 today with a hemoglobin of 9.3 and hematocrit of 28.4. Chem profile was unremarkable calcium was 7.8. Urinalysis was unremarkable. Last evening, the patient spiked a temperature to 39.5 orally. She received Tylenol. This morning her temperature was 37.3 orally. MRI of the brain showed no acute changes intracerebrally. There was a tiny old left periventricular lesion of a nonspecific nature. In addition, there was some slight enhancement around the rim of the occipital horns bilaterally with no other enhancement noted. This would suggest some nonspecific cerebritis in that area. There was no evidence of intracerebral cerebritis or encephalitis. In addition, there was opacification, partially, of the right ethmoid and sphenoid sinuses compared to the left. Objective Date Time Temp Pulse Resp B/P Pulse Ox O2 Delivery O2 Flow Rate FiO2 01/29/17 07:15 37.3 88 16 116/75 96 Room Air 01/29/17 01:15 37.0 01/29/17 00:15 38.3 01/29/17 00:00 Room Air 01/28/17 23:30 39.1 01/28/17 23:15 39.5 105 18 115/73 96 Room Air 01/28/17 16:00 Room Air 01/28/17 14:32 38.2 95 18 108/73 96 Room Air 01/28/17 13:52 39.2 191 18 136/74 93 Room Air 01/28/17 09:11 37.0 Last 24 Hours Test 01/28/17 08:45 01/28/17 09:10 01/28/17 11:07 01/28/17 14:42 Lactic Acid Level 3.1 mmol/L 0.7 mmol/L Procalcitonin 0.87 ng/ml Urine Color YELLOW Urine Appearance CLEAR Urine pH 6.0 Urine Specific [place] 1.006 Urine Protein NEG Urine Glucose (UA) NEG Urine Ketones NEG Urine Occult Blood TRACE Urine Nitrite NEG Urine Bilirubin NEG Urine Urobilinogen NEG Urine Leukocyte Esterase NEG Urine WBC (Auto) 0 /hpf Urine RBC (Auto) 0-4 /hpf Urine Hyaline Casts (Auto) 0 /lpf Urine Epithelial Cells (Auto) 0-5 /lpf Urine Bacteria (Auto) NEG Bedside Glucose 113 mg/dl Test 01/28/17 16:15 01/28/17 20:24 01/29/17 05:34 01/29/17 07:05 Bedside Glucose 98 mg/dl 103 mg/dl 101 mg/dl White Blood Count 14.72 K/uL Red Blood Count 3.24 M/uL Hemoglobin 9.3 g/dL Hematocrit 28.4 % Mean Corpuscular Volume 87.7 fL Mean Corpuscular Hemoglobin 28.7 pg Mean Corpuscular Hemoglobin Concent 32.7 g/dl Platelet Count 316 K/uL Mean Platelet Volume 9.8 fL Neutrophils (%) (Auto) 56.4 % Lymphocytes (%) (Auto) 25.5 % Monocytes (%) (Auto) 5.7 % Eosinophils (%) (Auto) 3.9 % Basophils (%) (Auto) 0.3 % Neutrophils # (Auto) 8.29 K/uL Lymphocytes # (Auto) 3.76 K/uL Monocytes # (Auto) 0.84 K/uL Eosinophils # (Auto) 0.58 K/uL Basophils # (Auto) 0.05 K/uL RDW Standard Deviation 43.7 fL RDW Coefficient of Variation 13.5 % Immature Granulocyte % (Auto) 8.2 % Immature Granulocyte # (Auto) 1.20 K/uL Red Blood Cell Morphology Unremarkable Sodium Level 140 mmol/L Potassium Level 4.0 mmol/L Chloride Level 106 mmol/L Carbon Dioxide Level 28 mmol/L Anion Gap 6.0 mmol/L Blood Urea Nitrogen 7 mg/dl Creatinine 0.53 mg/dl Est Creatinine Clear Calc Drug Dose 149.1 ml/min Estimated GFR () 142.6 Estimated GFR (Non- 123.0 BUN/Creatinine Ratio 12.9 Random Glucose 98 mg/dl Lactic Acid Level 0.8 mmol/L Calcium Level 7.8 mg/dl Phosphorus Level 3.4 mg/dl Magnesium Level 2.4 mg/dl Total Bilirubin 0.3 mg/dl Aspartate Amino Transf (AST/SGOT) 37 U/L Alanine Aminotransferase (ALT/SGPT) 53 U/L Alkaline Phosphatase 52 U/L Total Protein 6.0 gm/dl Albumin 2.5 gm/dl Globulin 3.5 gm/dl Albumin/Globulin Ratio 0.7 Procalcitonin 0.53 ng/ml Imaging: MRI OF THE BRAIN COMBO CLINICAL HISTORY: Refractory meningitis. COMPARISON STUDY: CT of the brain dated 01/23/2017. TECHNIQUE: MRI of the brain was performed utilizing various T1 and T2-weighted sequences in the axial, sagittal, and coronal planes. Contrast-enhanced sequences were acquired following the administration of 7.5 cc of Gadavist. FINDINGS: Brain parenchyma: There is subtle and nonspecific mildly increased FLAIR signal seen throughout the periventricular white matter. Additionally, there is subtle abnormal enhancement identified involving the lining of the occipital horns of both lateral ventricles. This is best seen on coronal postcontrast image #19. No intraventricular debris is identified. There is no intracranial fluid collection seen. A focal 6 mm T2 hyperintense lesion adjacent to the left lateral ventricle seen on axial image #13, and the appearance suggests a remote insult. There is no hemorrhage or mass effect. There is no restricted diffusion typical for acute ischemia. No enhancing mass lesion is identified on the postcontrast images. There is no leptomeningeal or pachymeningeal enhancement. Seth-white matter differentiation is preserved. No extra-axial fluid collection is seen. The cerebellar tonsils are normal in configuration. Ventricles, sulci, and cisterns: Normal in configuration. See above. Pituitary and sella: Unremarkable. Intracranial vasculature: Normal flow voids are maintained at the skull base. Orbits: The bony orbits are grossly intact. Orbital contents are normal in appearance. Sinuses and mastoids: There is trace mucosal thickening and fluid seen in the right maxillary antrum. There is subtotal opacification of the right sphenoid sinus and the anterior right ethmoid sinuses. The remaining paranasal sinuses are clear. There is a small right mastoid effusion. Calvarium: Unremarkable. Cervical cord: Partially visualized cervical spinal cord is normal in morphology and signal intensity. IMPRESSION: 1. Findings suggest a mild and nonspecific cerebritis/ventriculitis. Clinical correlation will be essential. 2. There is no leptomeningeal/pachymeningeal enhancement. No intraventricular debris is identified. No intracranial fluid collection is seen. 3. There is no hemorrhage, mass effect, or evidence of acute ischemia. Exam: She is awake and alert. Her speech is like before with some lisp and accident but no specific aphasia or dysarthria. Mood and affect are normal and appropriate. Thought processes seem intact. Patient has no facial droop. Tongue is midline. Extraocular eye muscles are intact without nystagmus. Without discharge is no drift. Strength seems symmetrical. There is no abnormal involuntary movements. Current Inpatient Medications Medications (Trade) Dose Ordered Sig/Barney Route Start Time Stop Time Status Last Admin Dose Admin Ondansetron HCl (Zofran Inj) 4 mg Q6H PRN IV 01/23/17 20:00 02/22/17 19:59 Morphine Sulfate (MoRPHine SULFATE INJ) 2 mg Q2H PRN IV 01/23/17 20:00 02/06/17 19:59 01/27/17 18:31 2 MG Morphine Sulfate 4 mg 4 mg Q2H PRN IV 01/23/17 20:00 02/06/17 19:59 01/28/17 00:21 4 MG Ceftriaxone Sodium/Dextrose (Rocephin Inj/D5 50ml) 70 ml @ 100 mls/hr Q12H IV 01/24/17 05:00 02/03/17 04:59 01/29/17 04:39 100 MLS/HR Enoxaparin Sodium (Lovenox Inj) 40 mg Q24H SQ 01/25/17 12:00 02/24/17 11:59 01/26/17 12:15 40 MG Heparin Sodium (Porcine) (Heparin 10 Unit/ ml 5 ml Flush) 5 ml PRN PRN FLUSH 01/24/17 13:30 02/23/17 13:29 01/28/17 23:08 5 ML Levalbuterol (Xopenex 1.25MG/ 3ML Neb) 1.25 mg Q6R PRN INH 01/25/17 09:00 02/24/17 08:59 Insulin Aspart SLIDING SCALE G... ACHS SC 01/26/17 11:00 02/25/17 10:59 01/26/17 18:43 2 UNITS Acetaminophen (Ofirmev Iv) 100 ml @ 400 mls/hr Q8H PRN IV 01/27/17 10:51 02/26/17 10:50 01/28/17 07:59 400 MLS/HR Acetaminophen (Tylenol Tab) 650 mg Q4H PRN PO 01/27/17 11:00 02/26/17 10:59 5/30/17 23:14 650 MG Vancomycin HCl (Consult) 1 ea UD PRN N/A 01/28/17 09:30 02/27/17 09:29 Miscellaneous Information 1 ea 1 ea UD PRN N/A 01/28/17 09:30 02/27/17 09:29 Ampicillin Sodium 2000 mg/Sodium Chloride 100 ml @ 200 mls/hr Q6@0400,1000,1600,2200 IV 01/28/17 10:00 02/07/17 09:59 01/29/17 03:46 200 MLS/HR Vancomycin HCl/ Sodium Chloride (Vancomycin Inj/ Nss 250ml) 275 ml @ 125 mls/hr Q8@0400,1200,2000 IV 01/28/17 20:00 02/07/17 11:59 01/29/17 03:46 125 MLS/HR Gadobutrol (Gadavist) 7.5 mmol UD PRN IV 01/28/17 17:00 02/01/17 16:59 Impression 1. Acute illness consistent with meningitis with abnormal LP. Initially, the patient had a markedly elevated white count peripherally with left shift as well as greater than 4000 white cells on CSF with a left shift. CSF glucose was markedly low at 2 and protein was quite elevated at 741. All of this would tend to point to a bacterial meningitis. However, Gram stain was negative for organisms and cultures did not grow any bacteria. An acute viral infection could create an elevated white count and left shift, but I have never seen a white count or protein that high in a viral illness, as well as that low of a glucose. An unusual fungus or TB/mycobacteria presentation cannot be excluded, however, I 've never seen CSF parameters such as this patient has with those diagnoses either. Neurosyphilis might be able to produce a CSF such as this patient has, and should be easily treated with the antibiotics she has received. Lyme antibody titers and HSV titers were negative. MRI of the brain showed no specific findings. The slight occipital horn enhancement consistent with cerebritis is nonspecific and goes along with her inflammatory picture. She does have right sphenoid and ethmoid sinusitis. This possibly could've been a source of her meningitis infection. There are no signs of encephalitis by MRI. There is nothing to suggest cysticercosis or other parasitic infection. Clinically, the patient is at baseline with no neurologic deficits, meningeal signs, or encephalopathy. 2. The patient is still spiking temperatures at night with recovery by the morning. This may be simply her underlying infection. She continues to receive 3 antibiotics 3. History of depression - stable on Paxil Plan 1. Recommend continuing antibiotics intravenously for 7-10 days, but this will be deferred to Dr. Tyler 2. There is no neurologic indication for steroids at this time. 3. There is no indication for acyclovir at this time. 4. Increase activity as able. 5. I see no indication for repeating a lumbar puncture at this time unless the patient worsens neurologically or new issues arise. This would be particularly true if she worsened off antibiotics. I no further neurologic testing or treatment recommendations to make at this time. Please contact me if I can be of further assistance on this case. I spoke with Dr. Perry regarding this case including diagnoses and treatment options.
[2017-01-29] MEDS: INSULIN ASPART 100 UNITS/ML 3 ML PEN SC SCH ×3 (08:24→16:37)
[2017-01-29] MEDS: ENOXAPARIN 40 MG/0.4 ML SYR SQ SCH (11:36)
--- NOTE | 2017-01-29 16:48 | Family Medicine Progress Note ---
Progress Note Date of Service January 29, 2017. Subjective Pt evaluation today including: conversation w/ patient, physical exam, chart review, lab review Pain: No pain PO Intake: Good Voiding: no voiding problems Doing well No acute issues overnight Still febrile but no symptoms No neck stiffness, headache or photophobia Appetite and intake have been good Additional Comments: A 10 point review of systems was negative unless stated above. Medications Current Inpatient Medications Medications (Trade) Dose Ordered Sig/Barney Route Start Time Stop Time Status Last Admin Dose Admin Ondansetron HCl (Zofran Inj) 4 mg Q6H PRN IV 01/23/17 20:00 02/22/17 19:59 Morphine Sulfate (MoRPHine SULFATE INJ) 2 mg Q2H PRN IV 01/23/17 20:00 02/06/17 19:59 01/27/17 18:31 2 MG Morphine Sulfate 4 mg 4 mg Q2H PRN IV 01/23/17 20:00 02/06/17 19:59 01/28/17 00:21 4 MG Ceftriaxone Sodium/Dextrose (Rocephin Inj/D5 50ml) 70 ml @ 100 mls/hr Q12H IV 01/24/17 05:00 02/03/17 04:59 01/29/17 04:39 100 MLS/HR Enoxaparin Sodium (Lovenox Inj) 40 mg Q24H SQ 01/25/17 12:00 02/24/17 11:59 01/26/17 12:15 40 MG Heparin Sodium (Porcine) (Heparin 10 Unit/ ml 5 ml Flush) 5 ml PRN PRN FLUSH 01/24/17 13:30 02/23/17 13:29 01/29/17 14:38 5 ML Levalbuterol (Xopenex 1.25MG/ 3ML Neb) 1.25 mg Q6R PRN INH 01/25/17 09:00 02/24/17 08:59 Insulin Aspart SLIDING SCALE G... ACHS SC 01/26/17 11:00 02/25/17 10:59 01/26/17 18:43 2 UNITS Acetaminophen (Ofirmev Iv) 100 ml @ 400 mls/hr Q8H PRN IV 01/27/17 10:51 02/26/17 10:50 01/28/17 07:59 400 MLS/HR Acetaminophen (Tylenol Tab) 650 mg Q4H PRN PO 01/27/17 11:00 02/26/17 10:59 01/28/17 23:14 650 MG Vancomycin HCl (Consult) 1 ea UD PRN N/A 01/28/17 09:30 02/27/17 09:29 Miscellaneous Information 1 ea 1 ea UD PRN N/A 01/28/17 09:30 02/27/17 09:29 Ampicillin Sodium 2000 mg/Sodium Chloride 100 ml @ 200 mls/hr Q6@0400,1000,1600,2200 IV 01/28/17 10:00 02/07/17 09:59 01/29/17 15:44 200 MLS/HR Vancomycin HCl/ Sodium Chloride (Vancomycin Inj/ Nss 250ml) 275 ml @ 125 mls/hr Q8@0400,1200,2000 IV 01/28/17 20:00 02/07/17 11:59 01/29/17 11:46 125 MLS/HR Gadobutrol (Gadavist) 7.5 mmol UD PRN IV 01/28/17 17:00 02/01/17 16:59 Objective Vital Signs Date Time Temp Pulse Resp B/P Pulse Ox O2 Delivery O2 Flow Rate FiO2 01/29/17 16:00 Room Air 01/29/17 15:43 37.4 107 16 104/72 92 Room Air 01/29/17 10:37 37.4 01/29/17 07:45 96 Room Air 01/29/17 07:15 37.3 88 16 116/75 96 Room Air 01/29/17 01:15 37.0 01/29/17 00:15 38.3 01/29/17 00:00 Room Air 01/28/17 23:30 39.1 01/28/17 23:15 39.5 105 18 115/73 96 Room Air Physical Exam General Appearance: WD/WN, no apparent distress Eyes: normal inspection, EOMI ENT: hearing grossly normal, TMs normal Neck: supple, no adenopathy, no JVD Respiratory/Chest: chest non-tender, lungs clear, normal breath sounds Cardiovascular: regular rate, rhythm, no gallop, no murmur Abdomen: normal bowel sounds, non tender, soft Extremities: non-tender, no pedal edema, + pertinent finding (no neck stiffness ) 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, alert, normal mood/affect, oriented x 3 Skin: normal color, warm/dry, no rash Lymphatic: no adenopathy Laboratory Results Last 24 Hours Test 01/28/17 20:24 01/29/17 05:34 01/29/17 07:05 01/29/17 11:09 Bedside Glucose 103 mg/dl 101 mg/dl 91 mg/dl White Blood Count 14.72 K/uL Red Blood Count 3.24 M/uL Hemoglobin 9.3 g/dL Hematocrit 28.4 % Mean Corpuscular Volume 87.7 fL Mean Corpuscular Hemoglobin 28.7 pg Mean Corpuscular Hemoglobin Concent 32.7 g/dl Platelet Count 316 K/uL Mean Platelet Volume 9.8 fL Neutrophils (%) (Auto) 56.4 % Lymphocytes (%) (Auto) 25.5 % Monocytes (%) (Auto) 5.7 % Eosinophils (%) (Auto) 3.9 % Basophils (%) (Auto) 0.3 % Neutrophils # (Auto) 8.29 K/uL Lymphocytes # (Auto) 3.76 K/uL Monocytes # (Auto) 0.84 K/uL Eosinophils # (Auto) 0.58 K/uL Basophils # (Auto) 0.05 K/uL RDW Standard Deviation 43.7 fL RDW Coefficient of Variation 13.5 % Immature Granulocyte % (Auto) 8.2 % Immature Granulocyte # (Auto) 1.20 K/uL Red Blood Cell Morphology Unremarkable Sodium Level 140 mmol/L Potassium Level 4.0 mmol/L Chloride Level 106 mmol/L Carbon Dioxide Level 28 mmol/L Anion Gap 6.0 mmol/L Blood Urea Nitrogen 7 mg/dl Creatinine 0.53 mg/dl Est Creatinine Clear Calc Drug Dose 149.1 ml/min Estimated GFR () 142.6 Estimated GFR (Non- 123.0 BUN/Creatinine Ratio 12.9 Random Glucose 98 mg/dl Lactic Acid Level 0.8 mmol/L Calcium Level 7.8 mg/dl Phosphorus Level 3.4 mg/dl Magnesium Level 2.4 mg/dl Total Bilirubin 0.3 mg/dl Aspartate Amino Transf (AST/SGOT) 37 U/L Alanine Aminotransferase (ALT/SGPT) 53 U/L Alkaline Phosphatase 52 U/L Total Protein 6.0 gm/dl Albumin 2.5 gm/dl Globulin 3.5 gm/dl Albumin/Globulin Ratio 0.7 Procalcitonin 0.53 ng/ml Test 01/29/17 16:16 Bedside Glucose 156 mg/dl Assessment and Plan 37 year old female with meningitis. Had initial improvement over 72 hours resulting in antibiotic de-escalation. Is currently on Vancomycin, Rocephin, and Ampicillin Clinically the patient is doing well without any focal signs of neurological deficit or signs of encephalitis Our plan for her is as follows: Meningitis - Unclear organism. Empirically treating with Vanc/Rocephin/Ampicillin ID recommendations appreciated Neurology recommendations appreciated; mild cerebritis on MRI, though does not chart changer - Acyclovir stopped as HSV is negative - Repeat blood cultures from yesterday are pending - Repeat LP not indicated at this time as patient appears clinically well with normal exam Hypernatremia - Resolved; Na currently 140 Hypokalemia - Resolved; K 4.0 Hyperglycemia - HbA1c 5.3 - Patient has SSI ordered though has not needed 01/26 - Will stop Sliding scale Anemia - Hb improved slightly today 9.3; was 11 at presentation - No evidence of hemolysis per peripheral smear - Like 2/2 acute BM suppression from illness; will check reticulocyte count with AM labs - Monitor daily DVT prophylaxis - SCD - Lovenox Disposition - Med/Surg - Remains in hospital for continued evaluation/treatment of meningitis Continued [facility] stay due to: fever, abnormal vital signs, multiple IV medications needed Discharge planning: home Reviewed: Pt Seen/Exam by Me History denies any complains no headache, neck stiffness, vision problem Constitutional: denies: fever Respiratory: negative: short of breath Cardiovascular: denies chest pain General Appearance: no apparent distress Ears, Nose, Throat: normal ENT inspection Neck: supple Respiratory: lungs clear, no respiratory distress Cardiovascular: regular rate, rhythm Gastrointestinal: normal bowel sounds, non tender, soft Neurologic/Psychiatric: alert, oriented x 3 Skin Characteristics: warm/dry Assessment/Plan I have reviewed the medical record and performed a history and physical examination of this patient today. I have discussed the case with Dr. Snow. The above note reflects my findings, conclusions, and recommendations.
[2017-01-30] MEDS: VANCOMYCIN INJ 1,250 MG in SODIUM CHLORIDE 0.9% 250ML 250 ML IV SCH (03:45)
[2017-01-30] MEDS: AMPICILLIN IV 2,000 MG in SODIUM CHLOR 0.9% AD-VAN 100ML 100 ML IV SCH ×4 (03:45→22:27)
[2017-01-30] MEDS: CEFTRIAXONE SOD INJ 2,000 MG in DEXTROSE 5% 50ML 50 ML IV SCH (04:55)
[2017-01-30 07:15] VITALS: BP 106/70; PULSE 94; TEMP 37; O2SAT 96
[2017-01-30 08:00] VITALS: O2SAT 96
[2017-01-30 08:48] LABS: HEMATOCRIT 30.5 % (37-47); MEAN CELL VOLUME 88.7 fL (80-100); MEAN CORPUSCULAR HEMOGLOBIN 29.1 pg (25-34); MEAN CORPUSCULAR HGB CONC 32.8 g/dl (32-36); MEAN PLATELET VOLUME 9.7 fL (7.4-10.4); PLATELET COUNT 328 K/uL (130-400); RED BLOOD COUNT 3.44 M/uL (4.2-5.4); WHITE BLOOD COUNT 14.23 K/uL (4.8-10.8)
[2017-01-30 09:13] LABS: BUN/CREATININE RATIO 8.9 (10-20); CREATININE 0.76 mg/dl (0.60-1.20); MAGNESIUM 2.2 mg/dl (1.8-2.4); POTASSIUM 4.3 mmol/L (3.5-5.1)
[2017-01-30 09:14] LABS: CALCIUM 8.3 mg/dl (8.5-10.1)
[2017-01-30 09:16] LABS: ALB/GLOB RATIO 0.8 (0.9-2); BASO % 0.4 %; BASO ABS # 0.05 K/uL (0-0.2); COMPLETE YES; EOS % 4.5 %; IG% 7.5 %; LYMPH % 20.4 %; LYMPH ABS # 2.91 K/uL (1.2-3.4); MONO % 9.1 %; NEUT % 58.1 %; PHOSPHORUS 3.1 mg/dl (2.5-4.9)
[2017-01-30] MEDS ORDERED: VANCOMYCIN TROUGH SCH (11:30)
[2017-01-30] MEDS: ENOXAPARIN 40 MG/0.4 ML SYR SQ SCH (11:35)
--- NOTE | 2017-01-30 11:48 | Family Medicine Progress Note ---
Progress Note Date of Service Jan 30, 2017. Subjective Pt evaluation today including: conversation w/ patient, physical exam, chart review, lab review Pain: None Voiding: no voiding problems Doing well No issues overnight Denies headache, Dizziness, blurred vision, neck stiffness Appetite, intake and voiding are per baseline Medications Current Inpatient Medications Medications (Trade) Dose Ordered Sig/Barney Route Start Time Stop Time Status Last Admin Dose Admin Ondansetron HCl (Zofran Inj) 4 mg Q6H PRN IV 01/23/17 20:00 02/22/17 19:59 Morphine Sulfate (MoRPHine SULFATE INJ) 2 mg Q2H PRN IV 01/23/17 20:00 02/06/17 19:59 01/27/17 18:31 2 MG Morphine Sulfate (MoRPHine SULFATE INJ) 4 mg Q2H PRN IV 01/23/17 20:00 02/06/17 19:59 01/28/17 00:21 4 MG Ceftriaxone Sodium 2000 mg/ Dextrose 70 ml @ 100 mls/hr Q12H IV 01/24/17 05:00 02/03/17 04:59 Future Hold 01/30/17 04:55 100 MLS/HR Enoxaparin Sodium (Lovenox Inj) 40 mg Q24H SQ 01/25/17 12:00 02/24/17 11:59 01/26/17 12:15 40 MG Heparin Sodium (Porcine) (Heparin 10 Unit/ ml 5 ml Flush) 5 ml PRN PRN FLUSH 01/24/17 13:30 02/23/17 13:29 01/30/17 11:35 5 ML Levalbuterol (Xopenex 1.25MG/ 3ML Neb) 1.25 mg Q6R PRN INH 01/25/17 09:00 02/24/17 08:59 Acetaminophen 100 ml @ 400 mls/hr Q8H PRN IV 01/27/17 10:51 02/26/17 10:50 01/28/17 07:59 400 MLS/HR Acetaminophen (Tylenol Tab) 650 mg Q4H PRN PO 01/27/17 11:00 02/26/17 10:59 01/28/17 23:14 650 MG Vancomycin HCl (Consult) 1 ea UD PRN N/A 01/28/17 09:30 02/27/17 09:29 Miscellaneous Information 1 ea UD PRN N/A 01/28/17 09:30 02/27/17 09:29 Ampicillin Sodium 2000 mg/Sodium Chloride 100 ml @ 200 mls/hr Q6@0400,1000,1600,2200 IV 01/28/17 10:00 02/07/17 09:59 01/30/17 10:10 200 MLS/HR Vancomycin HCl 1250 mg/Sodium Chloride 275 ml @ 125 mls/hr Q8@0400,1200,2000 IV 01/28/17 20:00 02/07/17 11:59 Future Hold 01/30/17 03:45 125 MLS/HR Gadobutrol (Gadavist) 7.5 mmol UD PRN IV 01/28/17 17:00 02/01/17 16:59 Objective Vital Signs Date Time Temp Pulse Resp B/P (MAP) Pulse Ox O2 Delivery O2 Flow Rate FiO2 01/30/17 08:00 96 Room Air 01/30/17 07:15 37.0 94 20 106/70 (82) 96 Room Air 01/30/17 00:00 Room Air 01/29/17 23:54 37.4 96 18 97/56 (70) 95 Room Air 01/29/17 16:00 Room Air 01/29/17 15:43 37.4 107 16 104/72 (83) 92 Room Air Physical Exam General Appearance: WD/WN, no apparent distress Eyes: normal inspection, EOMI ENT: normal ENT inspection, hearing grossly normal, pharynx normal Neck: supple, no adenopathy, no JVD Respiratory/Chest: lungs clear, no respiratory distress Cardiovascular: regular rate, rhythm, no edema, no murmur Abdomen: normal bowel sounds, non tender, soft Extremities: non-tender, no pedal edema Neurologic/Psychiatric: alert, normal mood/affect, oriented x 3 Skin: normal color, warm/dry, no rash Lymphatic: no adenopathy Laboratory Results Last 24 Hours Test 01/29/17 16:16 01/30/17 08:25 01/30/17 11:30 Bedside Glucose 156 mg/dl White Blood Count 14.23 K/uL Red Blood Count 3.44 M/uL Hemoglobin 10.0 g/dL Hematocrit 30.5 % Mean Corpuscular Volume 88.7 fL Mean Corpuscular Hemoglobin 29.1 pg Mean Corpuscular Hemoglobin Concent 32.8 g/dl Platelet Count 328 K/uL Mean Platelet Volume 9.7 fL Neutrophils (%) (Auto) 58.1 % Lymphocytes (%) (Auto) 20.4 % Monocytes (%) (Auto) 9.1 % Eosinophils (%) (Auto) 4.5 % Basophils (%) (Auto) 0.4 % Neutrophils # (Auto) 8.26 K/uL Lymphocytes # (Auto) 2.91 K/uL Monocytes # (Auto) 1.30 K/uL Eosinophils # (Auto) 0.64 K/uL Basophils # (Auto) 0.05 K/uL RDW Standard Deviation 44.1 fL RDW Coefficient of Variation 13.8 % Immature Granulocyte % (Auto) 7.5 % Immature Granulocyte # (Auto) 1.07 K/uL Absolute Reticulocyte Count 0.09 10^6/uL Percent Reticulocyte Count 2.6 % Sodium Level 141 mmol/L Potassium Level 4.3 mmol/L Chloride Level 105 mmol/L Carbon Dioxide Level 25 mmol/L Anion Gap 11.0 mmol/L Blood Urea Nitrogen 7 mg/dl Creatinine 0.76 mg/dl Est Creatinine Clear Calc Drug Dose 100.3 ml/min Estimated GFR () 117.8 Estimated GFR (Non- 101.6 BUN/Creatinine Ratio 8.9 Random Glucose 126 mg/dl Calcium Level 8.3 mg/dl Phosphorus Level 3.1 mg/dl Magnesium Level 2.2 mg/dl Total Bilirubin 0.2 mg/dl Aspartate Amino Transf (AST/SGOT) 31 U/L Alanine Aminotransferase (ALT/SGPT) 75 U/L Alkaline Phosphatase 51 U/L Total Protein 6.5 gm/dl Albumin 2.8 gm/dl Globulin 3.7 gm/dl Albumin/Globulin Ratio 0.8 Assessment and Plan 37 year old female with meningitis, improving. Currently on triple antibiotics. Has been afebrile now for 24 hours. Meningitis - No fever >24 hours. De-escalate antibiotics to monotherapy today Continue Ampicillin only Monitor fever curve - Goal is 14 day course from time of admission - Repeat blood cx 01/28 negative to date - No indication for LP unless patient has recurrence of fevers Hypernatremia - Resolved; Na currently 141 Hypokalemia - Resolved; K 4.3 Hyperglycemia - HbA1c 5.3 - Resolved; glucose WNL Anemia - Continues to improve; > 10 today, reaching baseline of 11 (as noted on admission) - Continue daily CBC monitoring DVT prophylaxis - SCD - Lovenox Disposition - Med/Surg - Remains in hospital for continued evaluation/treatment of meningitis; attempt antibiotic de-escalation today - If improves; may require Ampicillin infusion on discharge Continued [facility] stay due to: multiple IV medications needed Discharge planning: home Reviewed: Pt Seen/Exam by Me History denies headache, neck stiffness Constitutional: denies: fever Respiratory: negative: short of breath Cardiovascular: denies chest pain General Appearance: no apparent distress Neck: supple Respiratory: lungs clear, no respiratory distress Cardiovascular: regular rate, rhythm Neurologic/Psychiatric: alert, oriented x 3 Assessment/Plan I have reviewed the medical record and performed a history and physical examination of this patient today. I have discussed the case with Dr. Snow. The above note reflects my findings, conclusions, and recommendations.
[2017-01-30 15:20] VITALS: BP 97/67; PULSE 106; TEMP 36.9; O2SAT 95
[2017-01-30 16:00] VITALS: O2SAT 95
--- NOTE | 2017-01-30 20:15 | Infectious Disease Progress Nt ---
Progress Note Date of Service Jan 30, 2017. Subjective Pt evaluation today including: conversation w/ patient, physical exam, chart review, lab review, review of studies, conversation w/ weight loss sales consultant, review of inpatient medication list Patient feeling better today with less headache. Has been afebrile 24 hours. White blood cell count slightly better. Repeat blood cultures remain negative. All Other Systems: Reviewed and Negative Medications Current Inpatient Medications Medications (Trade) Dose Ordered Sig/Barney Route Start Time Stop Time Status Last Admin Dose Admin Ondansetron HCl (Zofran Inj) 4 mg Q6H PRN IV 01/23/17 20:00 02/22/17 19:59 Morphine Sulfate (MoRPHine SULFATE INJ) 2 mg Q2H PRN IV 01/23/17 20:00 02/06/17 19:59 01/27/17 18:31 2 MG Morphine Sulfate (MoRPHine SULFATE INJ) 4 mg Q2H PRN IV 01/23/17 20:00 02/06/17 19:59 01/28/17 00:21 4 MG Ceftriaxone Sodium 2000 mg/ Dextrose 70 ml @ 100 mls/hr Q12H IV 01/24/17 05:00 02/03/17 04:59 Future Hold 01/30/17 04:55 100 MLS/HR Enoxaparin Sodium (Lovenox Inj) 40 mg Q24H SQ 01/25/17 12:00 02/24/17 11:59 01/26/17 12:15 40 MG Heparin Sodium (Porcine) (Heparin 10 Unit/ ml 5 ml Flush) 5 ml PRN PRN FLUSH 01/24/17 13:30 02/23/17 13:29 01/30/17 16:42 5 ML Levalbuterol (Xopenex 1.25MG/ 3ML Neb) 1.25 mg Q6R PRN INH 01/25/17 09:00 02/24/17 08:59 Acetaminophen 100 ml @ 400 mls/hr Q8H PRN IV 01/27/17 10:51 02/26/17 10:50 01/28/17 07:59 400 MLS/HR Acetaminophen (Tylenol Tab) 650 mg Q4H PRN PO 01/27/17 11:00 02/26/17 10:59 01/28/17 23:14 650 MG Vancomycin HCl (Consult) 1 ea UD PRN N/A 01/28/17 09:30 02/27/17 09:29 Miscellaneous Information 1 ea UD PRN N/A 01/28/17 09:30 02/27/17 09:29 Ampicillin Sodium 2000 mg/Sodium Chloride 100 ml @ 200 mls/hr Q6@0400,1000,1600,2200 IV 01/28/17 10:00 02/07/17 09:59 01/30/17 15:43 200 MLS/HR Vancomycin HCl 1250 mg/Sodium Chloride 275 ml @ 125 mls/hr Q8@0400,1200,2000 IV 01/28/17 20:00 02/07/17 11:59 Future Hold 01/30/17 03:45 125 MLS/HR Gadobutrol (Gadavist) 7.5 mmol UD PRN IV 01/28/17 17:00 02/01/17 16:59 Objective Vital Signs Date Time Temp Pulse Resp B/P (MAP) Pulse Ox O2 Delivery O2 Flow Rate FiO2 01/30/17 16:00 95 Room Air 01/30/17 15:20 36.9 106 18 97/67 (77) 95 Room Air 01/30/17 08:00 96 Room Air 01/30/17 07:15 37.0 94 20 106/70 (82) 96 Room Air 01/30/17 00:00 Room Air 01/29/17 23:54 37.4 96 18 97/56 (70) 95 Room Air Physical Exam General Appearance: WD/WN, no apparent distress Eyes: normal inspection, sclerae normal ENT: normal ENT inspection, pharynx normal Neck: supple, no adenopathy, trachea midline Respiratory/Chest: lungs clear, normal breath sounds, no respiratory distress Cardiovascular: regular rate, rhythm, no gallop, no murmur Abdomen: normal bowel sounds, non tender, soft, no organomegaly Extremities: non-tender, no calf tenderness Neurologic/Psychiatric: alert, oriented x 3 Skin: normal color, warm/dry, no rash Lymphatic: no adenopathy Laboratory Results Last 24 Hours Test 01/30/17 08:25 01/30/17 12:00 White Blood Count 14.23 K/uL Red Blood Count 3.44 M/uL Hemoglobin 10.0 g/dL Hematocrit 30.5 % Mean Corpuscular Volume 88.7 fL Mean Corpuscular Hemoglobin 29.1 pg Mean Corpuscular Hemoglobin Concent 32.8 g/dl Platelet Count 328 K/uL Mean Platelet Volume 9.7 fL Neutrophils (%) (Auto) 58.1 % Lymphocytes (%) (Auto) 20.4 % Monocytes (%) (Auto) 9.1 % Eosinophils (%) (Auto) 4.5 % Basophils (%) (Auto) 0.4 % Neutrophils # (Auto) 8.26 K/uL Lymphocytes # (Auto) 2.91 K/uL Monocytes # (Auto) 1.30 K/uL Eosinophils # (Auto) 0.64 K/uL Basophils # (Auto) 0.05 K/uL RDW Standard Deviation 44.1 fL RDW Coefficient of Variation 13.8 % Immature Granulocyte % (Auto) 7.5 % Immature Granulocyte # (Auto) 1.07 K/uL Absolute Reticulocyte Count 0.09 10^6/uL Percent Reticulocyte Count 2.6 % Sodium Level 141 mmol/L Potassium Level 4.3 mmol/L Chloride Level 105 mmol/L Carbon Dioxide Level 25 mmol/L Anion Gap 11.0 mmol/L Blood Urea Nitrogen 7 mg/dl Creatinine 0.76 mg/dl Est Creatinine Clear Calc Drug Dose 100.3 ml/min Estimated GFR () 117.8 Estimated GFR (Non- 101.6 BUN/Creatinine Ratio 8.9 Random Glucose 126 mg/dl Calcium Level 8.3 mg/dl Phosphorus Level 3.1 mg/dl Magnesium Level 2.2 mg/dl Total Bilirubin 0.2 mg/dl Aspartate Amino Transf (AST/SGOT) 31 U/L Alanine Aminotransferase (ALT/SGPT) 75 U/L Alkaline Phosphatase 51 U/L Total Protein 6.5 gm/dl Albumin 2.8 gm/dl Globulin 3.7 gm/dl Albumin/Globulin Ratio 0.8 Vancomycin Level Trough 16.1 mcg/ml Assessment and Plan (1) Meningitis Status: Acute (2) Altered mental status (3) Anxiety (4) Sinusitis Status: Acute 37-year-old female with severe headache and neck stiffness with CSF parameters consistent with bacterial meningitis, but all cultures are negative, HSV PCR also negative. Not clear why patient had recurrent fever with short discontinuation of antibiotics. HSV negative, acyclovir discontinued. Patient to continue on IV ampicillin alone and follow closely for clinical response.
[2017-01-30 23:00] VITALS: BP 115/76; PULSE 112; TEMP 37.3; O2SAT 96
[2017-01-31] MEDS: AMPICILLIN IV 2,000 MG in SODIUM CHLOR 0.9% AD-VAN 100ML 100 ML IV SCH ×3 (03:52→15:30)
[2017-01-31 07:32] VITALS: BP 99/68; PULSE 103; TEMP 37.6; O2SAT 95
[2017-01-31 07:59] LABS: BASO % 0.1 %; BASO ABS # 0.02 K/uL (0-0.2); COMPLETE YES; EOS % 3.3 %; IG% 3.9 %; LYMPH % 23.5 %; LYMPH ABS # 3.45 K/uL (1.2-3.4); MEAN CELL VOLUME 89.2 fL (80-100); MEAN CORPUSCULAR HEMOGLOBIN 28.9 pg (25-34); MEAN CORPUSCULAR HGB CONC 32.4 g/dl (32-36); MEAN PLATELET VOLUME 9.5 fL (7.4-10.4); MONO % 10.5 %; NEUT % 58.7 %; PLATELET COUNT 324 K/uL (130-400); RED BLOOD COUNT 3.25 M/uL (4.2-5.4)
[2017-01-31 08:00] VITALS: O2SAT 95
[2017-01-31 08:27] LABS: BUN/CREATININE RATIO 10.9 (10-20); CALCIUM 8.8 mg/dl (8.5-10.1); CREATININE 0.69 mg/dl (0.60-1.20); MAGNESIUM 2.3 mg/dl (1.8-2.4); POTASSIUM 4.2 mmol/L (3.5-5.1)
[2017-01-31 08:30] LABS: ALB/GLOB RATIO 0.8 (0.9-2); PHOSPHORUS 3.3 mg/dl (2.5-4.9)
[2017-01-31] MEDS: ENOXAPARIN 40 MG/0.4 ML SYR SQ SCH (11:07)
--- NOTE | 2017-01-31 15:09 | Discharge Instructions ---
Discharge Instructions Date of Service Jan 31, 2017. Admission Reason for Admission: AMS Discharge Discharge Diagnosis / Problem: Meningitis Discharge Goals Goal(s): Improve disease control Activity Recommendations Activity Limitations: per Instructions/Follow-up section Lifting Limitations: gradually increase as tolerated Exercise/Sports Limitations: gradually increase as tolerated Shower/Bathe: no limitations . Instructions / Follow-Up Instructions / Follow-Up You were admitted to the hospital for meningitis. However, your blood cultures and spinal fluid cultures did give us the specific antibiotic that caused the infection. We started you on the antibiotics to cover you for the most common types. It took us several days to adjust the antibiotics to a dose where you were without fevers for > 24 hours. You will be discharged on Ampicillin. You made a good recovery over 1 week and we felt you could be discharged home. Because you will need to complete a course of IV antibiotics, you will go home with a PICC line so that you get antibiotic infusions every day. You will need an additional 8 days of Ampicillin. We will help you arrange for your daily infusions. Once completed, you will have received a total of 14 days of Ampicillin (which includes the antibiotics you received in the hospital). After you go home: - We will help you arrange follow-up with the Infectious Disease specialist in 1 week. - Please repeat lab work on on Friday. We will give you a prescription to have this done. - It will be important for you to see a primary care provider in 1 week after being discharged to ensure that you continue to improve. - You did not have pain at discharge but if you do, you can use Tylenol 650 mg every 6 hours as needed. You can get this over the counter. If you do not have a primary care provider, you can establish care with Dr. Santiago Snow with [facility]. His office contact phone is [phone]. We can help you get an appointment if you need. If your symptoms fail to improve, acutely worsen, please seek medical attention immediately by either calling your primary care provider or going to your nearest emergency department. As you go home watch for worsening signs of meningitis including, headache, neck stiffness, sensitivity to light, blurred vision and nausea/vomiting. Otherwise, please see your primary care provider in 3-5 days to ensure that your symptoms continue to improve. Current Hospital Diet Patient's current hospital diet: Diabetes Type 2 Diet Discharge Diet Recommended Diet: Regular Diet Procedures Procedures Performed: Lumbar Puncture on 01/23 Pending Studies Studies pending at discharge: yes List of pending studies: Repeat CBC on 02/03/2017 Laboratory Results Hemoglobin A1c Test 01/24/17 05:45 Range/Units Estimated Average Glucose 105 mg/dl Hemoglobin A1c 5.3 4.5-5.6 % Medical Emergencies . Who to Call and When: Medical Emergencies: If at any time you feel your situation is an emergency, please call 911 immediately. . Non-Emergent Contact Non-Emergency issues call your: Primary Care Provider, Hospital Doctor Call Non-Emergent contact if: you have a fever, your pain is not controlled . . "Provider Documentation" section prepared by Santiago Snow. . VTE Core Measure Inpt VTE Proph given/why not?: Enoxaparin (Lovenox)SQ, SCD's
[2017-01-31 15:34] VITALS: BP 120/70; PULSE 108; TEMP 37.6; O2SAT 98
[2017-01-31 16:22] VITALS: BP 120/70; PULSE 108; TEMP 37.6; O2SAT 98
--- NOTE | 2017-01-31 16:56 | Discharge Summary ---
Discharge Summary Date of Service Jan 31, 2017. (Santiago Snow MD) Discharge Summary Admission Date: January 23, 2017 at 19:51 Discharge Date: Jan 31, 2017 Discharge Disposition: Home with services Principal Diagnosis: Meningitis Procedures: Lumbar Puncture on 01/22/2017 Item Value Date Time CSF Total Protein 741.8 mg/dl H 01/23/171909 CSF Chemistry Tube # 2 01/23/171909 CSF Polynuclear WBCs (%) 86.8 % 01/23/171909 CSF Glucose 2 mg/dl L 01/23/171909 CSF Mononuclear WBCs % 13.2 % 01/23/171909 CSF RBC 8000 /uL 01/23/171909 CSF Cell Count Tube # 4 01/23/171909 CSF WBC 4081 /uL *H 01/23/171909 CSF Xanthrochromic NO XANTHOCHROMIA 01/23/171909 CSF Color RED 01/23/171909 CSF Appearance HAZY 01/23/[address] NONCONTRAST CT DOSE: HISTORY: Mental status change OVERDOSE TECHNIQUE: Multiaxial CT images of the head were performed without the use of intravenous contrast. Comparison: None. Findings: Moderate mucosal thickening of the bulk of the right maxillary ethmoid and sphenoid sinuses The calvarium and skull base are intact. The ventricles and sulci are within normal limits. There is no mass, hematoma, midline shift, or acute infarct. Impression: No acute intracranial abnormality. Sinusitis Electronically signed by: Henry Emanuel M.D. 01/23/2017 6:11 PM Dictated Date/Time: 01/23/2017 6:09 PM MRI OF THE BRAIN COMBO CLINICAL HISTORY: Refractory meningitis. COMPARISON STUDY: CT of the brain dated 01/23/2017. TECHNIQUE: MRI of the brain was performed utilizing various T1 and T2-weighted sequences in the axial, sagittal, and coronal planes. Contrast-enhanced sequences were acquired following the administration of 7.5 cc of Gadavist. FINDINGS: Brain parenchyma: There is subtle and nonspecific mildly increased FLAIR signal seen throughout the periventricular white matter. Additionally, there is subtle abnormal enhancement identified involving the lining of the occipital horns of both lateral ventricles. This is best seen on coronal postcontrast image #19. No intraventricular debris is identified. There is no intracranial fluid collection seen. A focal 6 mm T2 hyperintense lesion adjacent to the left lateral ventricle seen on axial image #13, and the appearance suggests a remote insult. There is no hemorrhage or mass effect. There is no restricted diffusion typical for acute ischemia. No enhancing mass lesion is identified on the postcontrast images. There is no leptomeningeal or pachymeningeal enhancement. Seth-white matter differentiation is preserved. No extra-axial fluid collection is seen. The cerebellar tonsils are normal in configuration. Ventricles, sulci, and cisterns: Normal in configuration. See above. Pituitary and sella: Unremarkable. Intracranial vasculature: Normal flow voids are maintained at the skull base. Orbits: The bony orbits are grossly intact. Orbital contents are normal in appearance. Sinuses and mastoids: There is trace mucosal thickening and fluid seen in the right maxillary antrum. There is subtotal opacification of the right sphenoid sinus and the anterior right ethmoid sinuses. The remaining paranasal sinuses are clear. There is a small right mastoid effusion. Calvarium: Unremarkable. Cervical cord: Partially visualized cervical spinal cord is normal in morphology and signal intensity. IMPRESSION: 1. Findings suggest a mild and nonspecific cerebritis/ventriculitis. Clinical correlation will be essential. 2. There is no leptomeningeal/pachymeningeal enhancement. No intraventricular debris is identified. No intracranial fluid collection is seen. 3. There is no hemorrhage, mass effect, or evidence of acute ischemia. Electronically signed by: Miguel Ta M.D. 01/28/2017 5:43 PM Dictated Date/Time: 01/28/2017 5:18 PM Consultations: Neurology Infectious Diseases (Santiago Snow MD) Medication Reconciliation Medication Profile: Unable to Obtain Active Prescriptions or Reported Meds Discharge Exam 10 point review of systems was negative unless stated in the hospital course Physical Exam: General Appearance: WD/WN, no apparent distress Eyes: normal inspection, EOMI, + pertinent finding (no photophobia) ENT: hearing grossly normal, pharynx normal Neck: supple, no adenopathy, no JVD Respiratory/Chest: lungs clear, no respiratory distress Cardiovascular: regular rate, rhythm, no gallop, no murmur Abdomen / GI: normal bowel sounds, non tender, soft Extremities: no calf tenderness, no pedal edema, + pertinent finding (no neck stiffness) Neurologic/Psychiatric: technology consultant II-XII nml as tested, alert, normal mood/affect , oriented x 3 Skin: normal color, warm/dry, no rash (Santiago Snow MD) no headache, neck pain, vision problem no fever in 24hours Review of Systems: Respiratory: No shortness of breath Cardiovascular: No chest pain Abdomen: No pain Physical Exam: General Appearance: no apparent distress Neck: supple Respiratory/Chest: lungs clear, no respiratory distress Cardiovascular: regular rate, rhythm Abdomen / GI: normal bowel sounds, non tender, soft Neurologic/Psychiatric: alert, oriented x 3 Skin: warm/dry (Marine Perry M.D.) Hospital Course (1) Meningitis (2) Altered mental status (3) Anxiety (4) Sinusitis 37 year old female admitted on 01/23 with altered mental status. Family and partner had not heard from the patient in couple of days so someone was sent to check in on the patient. On arrival to her apartment, patient was found unconscious on the floor. She was breathing but was altered mental status and could not provide a history. History and CT noted recent sinusitis though imaging did not show any bony erosions that could be a pathway for infection. LP was performed in the ED. CSF studies noted above pointed to bacterial etiology, though cultures were eventually negative and we had to treat empirically based on the most common bacterial etiologies. Her hospital course was as follows Bacterial Meningitis - Initially started on Ceftriaxone/Vancomycin/Ampicillin combination on 01/23; admitted initially to ICU - Started on IV Decadron - Patient showed good clinical response over 48 hours so Decadron was discontinued - 01/25: PICC line placed in anticipation of prolonged antibiotic course Discharged from ICU - 01/27: Noted to have excellent clinical response In the absence of organism we discontinued Vancomycin and Ampicillin and continued Ceftriaxone for empiric Strep Pneumo coverage - 01/28: Patient reported headache and neck stiffness; noted to have recurrence of fevers Blood cultures were drawn, eventually were reported as negative Vancomycin and Ampicillin were re-started Neurology consulted; MRI ordered; non-specific findings of cerebritis; did not repeat LP as low yield in the setting of getting systemic antibiotics - 01/30: Good clinical recovery; attempted to de-escalate to Ampicillin monotherapy - 01/31: Remained afebrile for 24 hours decision made to discharge patient home and complete a total of 14 days fo Ampicillin as outpatient Discharged with prescription for Ampicillin 8000 mg IV daily via continuous 24 hours infusion x 8 days (total of 14 days of Ampicillin) Hypernatremia - IV fluid therapy - 139 at discharge Hypokalemia - Resolved; 4.2 at discharge Hyperglycemia - HbA1c 5.3 - Hyperglycemia initially, like 2/2 Decadron - BSG normalized at discharge Anemia - 11 on arrival; went down to 8 during hospitalization - Stable between 9-10 at discharge - Suspected likely 2/2 BM suppression - Recommend follow-up CBC on 02/23/2017 DVT prophylaxis - SCD - Lovenox Disposition - Patient discharged home - Requires 24 hours Ampicillin infusions - Case management coordinate home nursing to educate patient and family on administration - Follow-up PCP within 1 week for follow-up Infectious Disease follow-up in 1 week Total Time Spent: Greater than 30 minutes This includes examination of the patient, discharge planning, medication reconciliation, and communication with other providers. (Santiago Snow MD) I have reviewed the medical record and performed a history and physical examination of this patient today. I have discussed the case with Dr. Snow. The above note reflects my findings, conclusions, and recommendations. Total Time Spent: Greater than 30 minutes (35) (Marine Perry M.D.) Discharge Instructions Please refer to the electronic Patient Visit Report (Discharge Instructions) for additional information. (Santiago Snow MD) Follow-Up PCP in 1 week Infectious Disease in 1 week (Santiago Snow MD) Additional Copies To [facility] Problem Qualifiers (1) Altered mental status: Coma timing: at arrival to emergency department
[2017-02-01] MEDS ORDERED: AMPICILLIN IV 2,000 MG in SODIUM CHLOR 0.9% AD-VAN 100ML 100 ML IV SCH ×4 (04:00)
== END 2017-01-31 18:00 | disposition home health service (06) | DRG 95 ==
LOC: ENRESERVDT → ENRESERVTM → C.EDB 16:54 → C.MSICU 19:51 → C.2E 01-26 16:58 → C.MS2W 01-27 10:40
PROVIDERS: ADMIT Internal Medicine; ATTEND Family Medicine
PROC: 009U3ZX Drainage of Spinal Canal, Percutaneous Approach, Diagnostic (ICD-10-PCS; principal; 2017-01-23)
PROC: 02HV33Z Insertion of Infusion Device into Superior Vena Cava, Percutaneous Approach (ICD-10-PCS; 2017-01-24)
DX: G00.9 Bacterial meningitis, unspecified (principal); E87.0 Hyperosmolality and hypernatremia; F32.9 Major depressive disorder, single episode, unspecified; F41.9 Anxiety disorder, unspecified; F41.0 Panic disorder [episodic paroxysmal anxiety]; D64.9 Anemia, unspecified; E86.0 Dehydration; I95.9 Hypotension, unspecified; R73.9 Hyperglycemia, unspecified; E87.6 Hypokalemia; E83.39 Other disorders of phosphorus metabolism; Z88.0 Allergy status to penicillin

== ENCOUNTER → 2017-02-03 | Outpatient (CLI) | payer OTHER ==
[2017-02-03 20:12] LABS: HEMATOCRIT 30.3 % (37-47); MEAN CELL VOLUME 87.8 fL (80-100); MEAN PLATELET VOLUME 9.2 fL (7.4-10.4); PLATELET COUNT 395 K/uL (130-400); RED BLOOD COUNT 3.45 M/uL (4.2-5.4); WHITE BLOOD COUNT 10.89 K/uL (4.8-10.8)
[2017-02-03 20:30] LABS: ALT/SGPT 34 U/L (12-78); AST/SGOT 11 U/L (15-37); BLOOD UREA NITROGEN 11 mg/dl (7-18); BUN/CREATININE RATIO 13.1 (10-20); CALCIUM 8.6 mg/dl (8.5-10.1); CARBON DIOXIDE 27 mmol/L (21-32); CHLORIDE 106 mmol/L (98-107); CREATININE 0.85 mg/dl (0.60-1.20); GLUCOSE 100 mg/dl (70-99); POTASSIUM 3.8 mmol/L (3.5-5.1); SODIUM 141 mmol/L (136-145)
[2017-02-03 20:33] LABS: ALB/GLOB RATIO 0.8 (0.9-2); ALKALINE PHOSPHATASE 60 U/L (45-117); C-REACTIVE PROTEIN 0.55 mg/dl (0-0.29)
== END | disposition home or self-care (01) ==
LOC: C.LABSPEC 12:48
PROVIDERS: ATTEND Internal Medicine Infectious Disease
DX: G03.9 Meningitis, unspecified (principal)